=== PATIENT | male | born 1950 | race Caucasian/White ===

== ENCOUNTER → 2017-07-13 | Outpatient (CLI) | payer MEDICARE ==
[~2017-07-13] MED LIST: AMLO5TAB2 PO; ASPI-482 PO; BYSTOLIC10 MG PO; FURO40TA4 PO; GLIP10TA13 PO; IRBE300T3 PO; MAGN400T3 PO; OMEP40CA5 PO; POTA20TA4 PO; SITA100T PO
--- NOTE | 2017-07-13 14:54 | RAD ---
COMPLETE RENAL ULTRASOUND Indication: Chronic kidney disease Comparison: CT abdomen and pelvis dated 02/26/2016. Procedure: Transabdominal ultrasound images are obtained of the kidneys and bladder. Findings: The kidneys demonstrate normal morphology and echotexture. There is no hydronephrosis. The right kidney measures 13.1 x 6.7 x 5.3 cm. The left kidney measures 11.8 x 6.3 x 4.9 cm. The bladder appears normal. IMPRESSION: Unremarkable renal ultrasound.
== END | disposition home or self-care (01) ==
LOC: US 10:32
PROVIDERS: ATTEND Internal Medicine Nephrology
DX: N18.3 Chronic kidney disease, stage 3 (moderate) (principal)
CPT/HCPCS: 76770

== ENCOUNTER → 2021-02-04 | Outpatient (CLI) | payer MEDICARE ==
[~2021-02-04] MED LIST changes: +AMLO-186 PO; -AMLO5TAB2 PO; +IRBE300T23 PO; -IRBE300T3 PO; -MAGN400T3 PO; +MAGN400T5 PO; +OMEP40CA45 PO; -OMEP40CA5 PO
--- NOTE | 2021-02-04 14:01 | KCIC ---
Exam performed: 2 views of the chest. Indication: Reason: SOA, past smoker, GERD. / Spl. Instructions: / History: Date of Service: 02/04/2021 1:41 PM. Comparison : None available Findings: PA and lateral radiographs of the chest reveal a mildly enlarged cardiomediastinal contour. Pulmonary vascularity appears mildly congested. There are prominent interstitial markings in both perihilar re gions. The lungs are clear. No pleural fluid is seen. The visualized osseous structures are unremark able. Impression: Cardiomegaly with Central vascular congestion and mildly prominent interstitial markings in both izaiah hilar regions. Findings are perhaps related to low-grade CHF. Correlate clinically. Electronically signed by: Karen Mcleod MD (02/04/2021 1:59 PM) [id number]
== END ==
LOC: KCIC 13:37
PROVIDERS: ATTEND Internal Medicine Gastroenterology
DX: I51.7 Cardiomegaly (principal); K21.9 Gastro-esophageal reflux disease without esophagitis; Z87.891 Personal history of nicotine dependence
CPT/HCPCS: 71046

== ENCOUNTER 2021-07-05 23:25 | Inpatient (IN) | payer MEDICARE ==
[~2021-07-05] VITALS: Ht 182.9 cm; Wt 133.4 kg
[~2021-07-05 23:25] MED LIST changes: -OMEP40CA45 PO; +OMEP40CA7 PO; +POTA-121 PO; -POTA20TA4 PO
[2021-07-05] MEDS ORDERED: FUROSEMIDE 40 MG/4 ML VIAL. ONE (23:28)
--- NOTE | 2021-07-05 23:40 | PHYS DOC ---
General Adult HPI: HPI: Patient is a 70 year old male past medical history of CHF presents with a chief complaint of shortness of breath. Shortness of breath suddenly started prior to arrival. Family called 911 EMS found patient to be sitting up in a chair in the tripod position with oxygen saturations in the 60s. Patient states shortness breath started suddenly just prior to arrival. Patient states today he noticed increased swelling bilateral lower extremities so he took extra dose of his Lasix 40mg. Patient denies any associated chest discomfort. States he did receive his Covid vaccination yesterday and was having chills but denied any fevers Patient did state he had some cough with no sputum production. Patient arrived on CPAP with oxygen saturations in the 70s. Shortly after arrival patient was placed on BiPAP with improvement of oxygen saturation to 100%. On exam patient is tachypneic with wet sounds. Patient has pitting edema bilateral lower extremities. Review of Systems: Review of Systems: Review of systems: Constitutional symptoms- No fever, Positive chills. Eyes- No Discharge, No Visual Loss Respiratory symptoms- Positive shortness of breath, No wheezing, No Dyspnea on Exertion positive cough Cardiovascular Systems; No chest pain, No Palpitations, No syncope Gastrointestinal symptoms: NO abdominal pain, no nausea, no vomiting or diarrhea. Genitourinary symptoms: No dysuria. Musculoskeletal symptoms: No back pain No extremity pain. Positive lower extremity edema NEUROLOGICAL Symptoms: No headache, no generalized weakness; No focal Weakness Skin: No rash. Heart Score: C/O Chest Pain: N/A Risk Factors: Risk Factors: DM, Current or recent (<one month) smoker, HTN, HLP, family history of CAD, obesity. Risk Scores: Score 0 - 3: 2.5% MACE over next 6 weeks - Discharge Home Score 4 - 6: 20.3% MACE over next 6 weeks - Admit for Clinical Observation Score 7 - 10: 72.7% MACE over next 6 weeks - Early Invasive Strategies Current Medications: Current Medications Medications (Trade) Dose Ordered Sig/Kory Start Time Stop Time Status Last Admin Dose Admin Furosemide (Lasix) 40 mg STK-MED ONCE 07/05/21 23:28 07/05/21 23:28 DC Allergies: Allergies: Allergies Coded Allergies Type Severity Reaction Last Updated Verified Penicillins Allergy Intermediate 02/26/16 Yes Physical Exam: PE: General: alert, mild acute distress. Skin: warm, dry and intact, no erythema, no rash. HENT: bilateral external ears normal, oropharynx moist, nose normal. Head:: Normocephalic, atraumatic. Neck: Trachea midline. Eyes: EOMI, Normal conjunctiva, No drainage CARDIOVASCULAR: Regular rate and rhythm RESPIRATORY: Tachypnea, respiratory distress Back: Full range of motion. MUSCULOSKELETAL: Full range of motion of bilateral upper and lower extremities. Pitting edema bilateral lower extremities GASTROINTESTINAL: Abdomen soft without rebound or guarding. NEUROLOGICAL: Alert and noted to person, place and time. No neurological deficits observed Psychiatric: Cooperative. Normal judgment EKG: EKG: [] Performed at 2331 Rate 73 sinus rhythm with apparent intraventricular complexes No ST elevation No ST depression No acute TN Radiology/Procedures: Radiology/Procedures: [] Impression: COMPARISON: 02/04/2021. FINDINGS: A frontal view of the chest is obtained. There are airspace infiltrates in the right greater than left bases. There is no pneumothorax or pleural effusion. The heart is mildly enlarged. IMPRESSION: 1. Multifocal pneumonia worse in the right base. Electronically signed by: Jay Mason MD (07/06/2021 1:49 AM) [facility] Course & Med Decision Making: Course & Med Decision Making Pertinent Labs and Imaging studies reviewed. (See chart for details) [] Patient was evaluated for chief complaint. Work-up consisted of laboratory analysis radiologic imaging and EKG. Results reviewed and discussed with patient and daughter. Treatment included Lasix and BiPAP. Once placement was placed on BiPAP oxygen saturation improved 9697%. Chest x-ray radiologist read as multifocal infiltrate. Covid swab obtained. Cultures and lactic acid obtained. 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 Nita Disclaimer: Nita Disclaimer: This electronic medical record was generated, in whole or in part, using a voice recognition dictation system. Departure Departure Impression: Primary Impression: CHF (congestive heart failure) Additional Impressions: Acute respiratory distress Person under investigation for COVID-19 Disposition: ADMITTED INPATIENT Referrals: MARY MCDUFFIE MD (PCP) OMAYRA TAPIA DO Jul 05, 2021 23:40
[2021-07-06 00:41] LABS: BASE EXCESS ABG -5 mmol/L (-3-3); HCO3 ABG 21 mmol/L (21-28); PCO2 ABG 43 mmHg (35-46); PO2 ABG 86 mmHg (65-108); SAT O2 ABG 96 % (92-99)
[2021-07-06 00:44] LABS: FIO2 ABG 65 (BIPAP)
[2021-07-06] MEDS ORDERED: FUROSEMIDE 40 MG/4 ML VIAL. IVP ONE (00:45)
[2021-07-06 00:56] LABS: BASO # 0.1 x10^3/uL (0.0-0.2); BASO % 1 % (0-3); EOS # 0.3 x10^3/uL (0.0-0.7); EOS % 2 % (0-3); HEMATOCRIT 40.3 % (39.0-53.0); HEMOGLOBIN 13.3 g/dL (13.0-17.5); LYMPH # 1.6 x10^3/uL (1.0-4.8); LYMPH % 13 % (24-48); MEAN CORPUSCULAR HEMOGLOBIN 34 pg (25-35); MEAN CORPUSCULAR HGB CONC 33 g/dL (31-37); MEAN CORPUSCULAR VOLUME 101 fL (79-100); MONO # 0.7 x10^3/uL (0.0-1.1); MONO % 6 % (0-9); NEUT # 9.7 x10^3/uL (1.8-7.7); NEUT % 78 % (31-73); PLATELET COUNT 148 x10^3/uL (140-400); RED BLOOD COUNT 3.98 x10^6/uL (4.30-5.70); RED CELL DISTRIBUTION WIDTH 15.6 % (11.5-14.5); WHITE BLOOD COUNT 12.3 x10^3/uL (4.0-11.0)
[2021-07-06 01:07] LABS: CALCIUM 8.5 mg/dL (8.5-10.1); CREATININE 3.9 mg/dL (0.7-1.3); GFR 15.4; POTASSIUM 4.4 mmol/L (3.5-5.1)
[2021-07-06 01:12] LABS: ALBUMIN 3.6 g/dL (3.4-5.0); ALBUMIN/GLOBULIN RATIO 0.9 (1.0-1.7); TOTAL BILIRUBIN 0.5 mg/dL (0.2-1.0); TOTAL PROTEIN 7.4 g/dL (6.4-8.2)
--- NOTE | 2021-07-06 01:52 | RAD ---
EXAM: CHEST ONE VIEW. HISTORY: Shortness of breath. COMPARISON: 02/04/2021. FINDINGS: A frontal view of the chest is obtained. There are airspace infiltrates in the right greater than left bases. There is no pneumothorax or pleu ral effusion. The heart is mildly enlarged. IMPRESSION: 1. Multifocal pneumonia worse in the right base. Electronically signed by: Jay Mason MD (07/06/2021 1:49 AM) [facility]
[2021-07-06 03:17] VITALS: BP 166/70
--- NOTE | 2021-07-06 04:05 | NUR ---
Admit from ER to [facility] room 654 via gurney. RT at bedside to place patient on BiPap. A/O x 4. Talkative. Pleasant. Tolerating BiPap without difficulty. VSS. O2 Sat 100% with BiPap at 65% FiO2. Orientated to room and call light. Reviewed POC to include BiPap and to call for assist while out of bed. Verbalized understanding. Resting in bed. Call light at hand. Bed alarm on.
[2021-07-06 06:00] VITALS: BP 155/87
[2021-07-06] MEDS ORDERED: MULT-245 PO (08:21)
[2021-07-06] MEDS ORDERED: AMLO-187 PO (08:21)
[2021-07-06] MEDS ORDERED: GABA-585 PO (08:21)
[2021-07-06] MEDS ORDERED: SITA25TA PO (08:21)
[2021-07-06] MEDS ORDERED: ISOS30TA68 PO (08:21)
[2021-07-06] MEDS ORDERED: HYDR-2869 PO (08:21)
[2021-07-06] MEDS ORDERED: ALLO300T PO (08:21)
[2021-07-06] MEDS ORDERED: FURO20TA3 PO (08:21)
[2021-07-06] MEDS ORDERED: CARV25TA2 PO (08:21)
[2021-07-06] MEDS ORDERED: FURO40TA4 PO (08:21)
[2021-07-06 10:48] VITALS: BP 165/74
--- NOTE | 2021-07-06 11:03 | EKG ---
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
[2021-07-06] MEDS ORDERED: PIP/TAZO PER PHARMACY MC PRN (12:15)
[2021-07-06 12:36] LABS: BASE EXCESS ABG -5 mmol/L (-3-3); FIO2 ABG 6 LPM NC; HCO3 ABG 20 mmol/L (21-28); PCO2 ABG 36 mmHg (35-46); PO2 ABG 56 mmHg (65-108); SAT O2 ABG 88 % (92-99)
[2021-07-06] MEDS ORDERED: GABAPENTIN 100 MG CAPSULE. PO SCH (13:00)
[2021-07-06] MEDS ORDERED: DOXYCYCLINE HYCLATE 100 MG in IV DEXTROSE 5% 100ML 100 ML IV SCH (13:00)
[2021-07-06] MEDS: ALLOPURINOL 300 MG TABLET. PO SCH (13:09)
[2021-07-06] MEDS: LINAGLIPTIN 5 MG TABLET PO SCH (13:11)
[2021-07-06] MEDS: PANTOPRAZOLE 40 MG TABLET.DR. PO SCH (13:11)
[2021-07-06] MEDS: ASPIRIN ENTERIC COATED 81 MG TABLET.DR. PO SCH (13:11)
[2021-07-06] MEDS: FUROSEMIDE 40 MG TABLET. PO SCH ×3 (13:11→21:16)
--- NOTE | 2021-07-06 13:26 | HP ---
ADMIT DATE: 07/06/2021 CHIEF COMPLAINT: Shortness of breath. 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 Basically, he presents to the ER with shortness of breath. He normally goes to [facility] and really wanted to go there, but they were apparently on diversion. EMS brought him here. While in the ER, we have noticed that his chest x-ray is abnormal. He has pneumonia. He is also volume overloaded. He is edematous. He also has a creatinine of 3.9 with a GFR hovering around 20. I discussed the case with the ER physician. We are going to admit the patient and consult Cardiology, Nephrology and Pulmonary Medicine. PAST MEDICAL HISTORY: Chronic renal disease, he states that he has been talking about possibly doing dialysis on him for some time; edema, CHF, anemia, polypharmacy, hypertension, neuropathy, GERD, gout. ALLERGIES: PENICILLIN, STATINS, CLINDAMYCIN, LISINOPRIL AND NAPROXEN. FAMILY HISTORY: Diabetes. 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 MEDICATIONS: Reviewed. He is on 12; including hydralazine, Imdur, carvedilol, amlodipine, aspirin, gabapentin, Lasix, omeprazole, Januvia, vitamins and allopurinol. REVIEW OF SYSTEMS: GENERAL: No history of weight change, weakness or fevers. SKIN: No bruising, hair changes or rashes. EYES: No blurred, double or loss of vision. NOSE AND THROAT: No history of nosebleeds, hoarseness or sore throat. HEART: No history of palpitations, chest pain or shortness of breath on exertion. LUNGS: He complains of shortness of breath. GASTROINTESTINAL: Denies changes in appetite, nausea, vomiting, diarrhea or constipation. GENITOURINARY: No history of frequency, urgency, hesitancy or nocturia. NEUROLOGIC: Denies history of numbness, tingling, tremor or weakness. PSYCHIATRIC: No history of panic, anxiety or depression. ENDOCRINE: No history of heat or cold intolerance, polyuria or polydipsia. EXTREMITIES: He complains of edema. PHYSICAL EXAMINATION: VITALS: Within normal limits and are stable. GENERAL: He is up in the chair, very weak. He seems slightly depressed, but pleasant. HEENT: Normal cephalic atraumatic, external auditory canals are patent. EYES: Extraocular muscles are intact, pupils are equally round and reactive to light and accommodation. MUSCULOSKELETAL: Well developed, well nourished, good range of motion. ENDOCRINE: No thyromegaly was palpated. LYMPHATICS: No cervical chain or axillary nodes were noted. HEMATOPOIETIC: No bruising. NECK: Supple, no JVD, no thyromegaly was noted. LUNGS: He has bibasilar crackles. HEART: RRR, S1, S2 present. Peripheral pulses intact, no obvious murmurs were noted. ABDOMEN: Soft, nontender. Positive bowel sounds no organomegaly, normal bowel sounds. EXTREMITIES: He has 2-3+ edema. NEUROLOGIC: He is extremely weak and short of breath. PSYCHIATRIC: Normal affect, normal mood. Stable. SKIN: No ulcerations or rashes, good skin turgor, no jaundice. VASCULAR: Good capillary refill, neurovascular bundle appears to be intact. LABORATORY DATA: White count 12, hemoglobin 13, platelets 148. Creatinine is 3.9, BUN is 63. His BNP level was 4289. COVID testing is negative. Chest x-ray shows a right sided pneumonia. ASSESSMENT AND PLAN: Multifactorial respiratory failure with pneumonia, probable volume overload, end-stage renal disease, probable heart failure, leukocytosis and azotemia. The patient has been admitted. I would like to try to diurese him, but I am afraid it may worsen his creatinine, we will hold off until he is seen by Cardiology and Nephrology. I did order IV Zosyn for the pneumonia. I have consulted Pulmonary Medicine, Cardiology and Nephrology. I resume most of his home meds for now. Discussed the case with his nurse and his daughter. Cardiac monitoring. O2 per nasal cannula. PROGNOSIS: FDC, extremely guarded. I explained to him he should consider dialysis if Nephrology offers it. CC TIME: [address]: ISABELLE/sy TID: [id number]
[2021-07-06] MEDS: ISOSORBIDE MONONITRATE 20 MG TABLET PO SCH (14:28)
[2021-07-06 15:00] VITALS: BP 177/76
--- NOTE | 2021-07-06 15:07 | PDOC2 ---
CONSULT Date of Consult Date of Consult DATE: 07/06/21 TIME: 15:04 Reason for Consult Reason for Consult: Chronic renal failure, respiratory failure Referring Physician Referring Physician: Jose Angel Identification/Chief Complaint Chief Complaint Shortness of breath Source Source: Chart review, Patient History of Present Illness Reason for Visit: The patient is a pleasant 70-year-old male who normally goes to [facility]. He was brought to the ER here since they were apparently on diversion. He was last seen by us in February 2021 with similar complaints of increasing shortness of breath. He has been following with cardiology and the CHF clinic whereby his diuretic regimen has been modified. He is known to have CKD stage IV on the basis of diabetes hypertension exogenous obesity and follows with Dr. Jackson. His baseline GFR is approximately 17-20 depending on his fluid status. In the ER he was noted to have an abnormal chest x-ray suggestive of fluid overload versus pneumonia. He claims he has been coughing up yellow phlegm however denies any fevers chills per se. He is unable to tell me how much weight he has gained. He does admit to occasional salt indiscretion. He is known to have 3.5 g of protein in the past. He denies any worsening of his lower extremity edema. Previous echocardiograms have shown preserved LV function but positive diastolic dysfunction Past Medical History Past Medical History Chronic renal disease stage IV Diastolic CHF Chronic lower extremity edema, anemiain the setting of renal failure hypertension, History of neuropathy, GERD, gout. 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 He does not drink, smoke or take drugs. Recently Current Problem List Problem List Problems Medical Problems: (1) Acute respiratory distress Status: Acute (2) CHF (congestive heart failure) Status: Acute (3) Person under investigation for COVID-19 Status: Acute Current Medications Current Medications Current Medications Furosemide (Lasix) 40 mg STK-MED ONCE .ROUTE ; Start 07/05/21 at 23:28; Stop 07/05/21 at 23:28; Status DC Furosemide (Lasix) 40 mg 1X ONCE IVP Last administered on 07/05/21at 23:35; Start 07/06/21 at 00:45; Stop 07/06/21 at 00:51; Status DC Allopurinol (Zyloprim) 300 mg DAILY PO Last administered on 07/06/21at 13:09; Start 07/06/21 at 13:00 Amlodipine Besylate (Norvasc) 10 mg DAILY PO Last administered on 07/06/21at 13:11; Start 07/06/21 at 13:00 Aspirin (Ecotrin) 81 mg DAILY PO Last administered on 07/06/21at 13:11; Start 07/06/21 at 13:00 Furosemide (Lasix) 20 mg QODAY PO ; Start 07/07/21 at 09:00 Furosemide (Lasix) 40 mg QODAY PO Last administered on 07/06/21at 13:11; Start 07/06/21 at 13:00 Gabapentin (Neurontin) 100 mg DAILY PO ; Start 07/06/21 at 13:00; Stop 07/06/21 at 13:19; Status DC Hydralazine HCl (Apresoline) 50 mg TID PO Last administered on 07/06/21at 13:13; Start 07/06/21 at 14:00 Isosorbide Mononitrate (Ismo) 20 mg BID92 PO Last administered on 07/06/21at 14:28; Start 07/06/21 at 14:00 Carvedilol (Coreg) 25 mg BIDWMEALS PO ; Start 07/06/21 at 17:00 Multivitamins (Thera M Plus) 1 tab DAILY PO ; Start 07/07/21 at 09:00 Pantoprazole Sodium (Protonix) 40 mg DAILYAC PO Last administered on 07/06/21at 13:11; Start 07/06/21 at 13:00 Linagliptin (Tradjenta) 5 mg DAILY PO Last administered on 07/06/21at 13:11; Start 07/06/21 at 13:00 Piperacillin Sod/ Tazobactam Sod (Zosyn Per Pharmacy) 1 each PRN DAILY PRN MC SEE COMMENTS; Start 07/06/21 at 12:15; Status UNV Doxycycline Hyclate 100 mg/ Dextrose 100 ml @ 50 mls/hr Q12HR IV ; Start 07/06/21 at 13:00 Gabapentin (Neurontin) 100 mg HS PO ; Start 07/06/21 at 21:00 Furosemide (Lasix) 80 mg Q6HRS PO ; Start 07/06/21 at 18:00; Stop 07/07/21 at 12:01 Active Scripts Active Reported Multi Vitamin Daily (Multivitamin) 1 Each Tablet 1 Tab PO DAILY 30 Days Gabapentin (Gabapentin) 100 Mg Capsule 100 Mg PO DAILY Carvedilol 25 Mg Tablet 25 Mg PO BIDWMEALS Amlodipine Besylate 10 Mg Tablet 10 Mg PO DAILY Allopurinol 300 Mg Tablet 1 Tab PO DAILY Januvia (Sitagliptin Phosphate) 25 Mg Tablet 25 Mg PO DAILY Furosemide 40 Mg Tablet 1 Tab PO QODAY Furosemide 20 Mg Tablet 1 Tab PO QODAY Isosorbide Mononitrate Er (Isosorbide Mononitrate) 30 Mg Tab.er.24h 20 Mg PO BID Hydralazine Hcl 50 Mg Tablet 1 Tab PO TID Aspir 81 (Aspirin) 81 Mg Tablet.dr 1 Tab PO DAILY Omeprazole 40 Mg Capsule.dr 40 Mg PO DAILY Allergies Allergies: Coded Allergies: Penicillins (Verified Allergy, Intermediate, 02/26/16) Lllplka-Ipi-Hqs Reductase Inhibitor (Verified Allergy, Intermediate, 07/05/21) lisinopril (Verified Allergy, Intermediate, COUGH, 07/05/21) naproxen (Verified Allergy, Intermediate, 07/05/21) clindamycin (Verified Allergy, Mild, Diarrhea, 07/05/21) ROS Review of System 14 point review of systems: Positives as previously reviewed under HPI otherwise negative Physical Exam Physical Exam General Appearance: Awake Alert Oriented x 3 In min resp Distress especially with ambulation or movement, exogenous obesity Eyes: VIsion Unchanged Conjunctiva Normal EN: No EN Drainage Mucous Memb. moist Neck: no JVD no JVP Supple no Thyromegaly, short thick neck CVS: S1 S2 possible systolic murmur No Gallop No Rub +2-3 Edema Resp: Bibasilar Rales no obvious rhonchi no obvious Acc. Muscle use GI: BAS +ve NO Bruit Non Tender Non Distended : no CVA tenderness; no Suprapubic Tenderness SKIN: no Rashes Breast Exam deferred Mu.Sk: Adequate ROM no Muscle Atrophy Heme: Unable to palpate Obvious LAD no palp Splenomegaly NEURO: Good Strength and Tone Cranial Nerves II - XII grossly intact Psych: not Depressed no Active hallucination Vital Signs Vital Signs Date Time Temp Pulse Resp B/P (MAP) Pulse Ox O2 Delivery O2 Flow Rate FiO2 07/06/21 15:00 99.4 69 20 177/76 (109) 94 Nasal Cannula 11.0 99.4 Assessment & Plan Chronic kidney disease stage IV with baseline GFR anywhere from 17-20 depending on fluid status. Current FLuid and E-lyte status does not necessitate emergent need for Dialysis. Will re-evaluate for Dialysis in am. He knows that has been aware of his proximity to needing dialysis. Fluid overload: Diuresis as ordered. There is some suspicion for pneumonia also. My review of chest x-ray appears to show bilateral pleural effusions. May benefit from reecho Known history of proteinuria of 3.5 g in the past. May need to be quantitation of the same however may not change overall prognosis Lower extremity edema: Diuresis is required HTN: Current BP meds reviewed. See orders for changes. Await cardiology evaluation. Discussed Plan of Care and prognosis etc. at length with family(daughter at bedside) Labs Labs Laboratory Tests Test 07/05/21 11:45 07/05/21 23:28 07/06/21 02:35 07/06/21 02:48 O2 Saturation 96 % (92-99) Arterial Blood pH 7.31 (7.35-7.45) Arterial Blood pCO2 at Patient Temp 43 mmHg (35-46) Arterial Blood pO2 at Patient Temp 86 mmHg (65-108) Arterial Blood HCO3 21 mmol/L (21-28) Arterial Blood Base Excess -5 mmol/L (-3-3) FiO2 65 (bipap) White Blood Count 12.3 x10^3/uL (4.0-11.0) Red Blood Count 3.98 x10^6/uL (4.30-5.70) Hemoglobin 13.3 g/dL (13.0-17.5) Hematocrit 40.3 % (39.0-53.0) Mean Corpuscular Volume 101 fL (79-100) Mean Corpuscular Hemoglobin 34 pg (25-35) Mean Corpuscular Hemoglobin Concent 33 g/dL (31-37) Red Cell Distribution Width 15.6 % (11.5-14.5) Platelet Count 148 x10^3/uL (140-400) Neutrophils (%) (Auto) 78 % (31-73) Lymphocytes (%) (Auto) 13 % (24-48) Monocytes (%) (Auto) 6 % (0-9) Eosinophils (%) (Auto) 2 % (0-3) Basophils (%) (Auto) 1 % (0-3) Neutrophils # (Auto) 9.7 x10^3/uL (1.8-7.7) Lymphocytes # (Auto) 1.6 x10^3/uL (1.0-4.8) Monocytes # (Auto) 0.7 x10^3/uL (0.0-1.1) Eosinophils # (Auto) 0.3 x10^3/uL (0.0-0.7) Basophils # (Auto) 0.1 x10^3/uL (0.0-0.2) Sodium Level 140 mmol/L (136-145) Potassium Level 4.4 mmol/L (3.5-5.1) Chloride Level 104 mmol/L (98-107) Carbon Dioxide Level 25 mmol/L (21-32) Anion Gap 11 (6-14) Blood Urea Nitrogen 63 mg/dL (8-26) Creatinine 3.9 mg/dL (0.7-1.3) Estimated GFR (Cockcroft-Gault) 15.4 BUN/Creatinine Ratio 16 (6-20) Glucose Level 139 mg/dL (70-99) Calcium Level 8.5 mg/dL (8.5-10.1) Total Bilirubin 0.5 mg/dL (0.2-1.0) Aspartate Amino Transf (AST/SGOT) 33 U/L (15-37) Alanine Aminotransferase (ALT/SGPT) 36 U/L (16-63) Alkaline Phosphatase 112 U/L (46-116) Troponin I Quantitative 0.018 ng/mL (0.000-0.055) EN-Lqa-U-Type Natriuretic Peptide 4289 pg/mL (0-124) Total Protein 7.4 g/dL (6.4-8.2) Albumin 3.6 g/dL (3.4-5.0) Albumin/Globulin Ratio 0.9 (1.0-1.7) SARS-CoV-2 RNA (FELICITY) Negative (Negative) SARS-CoV-2 Antigen (Rapid) Negative (NEGATIVE) Lactic Acid Level 0.5 mmol/L (0.4-2.0) Test 07/06/21 07:26 07/06/21 07:40 07/06/21 09:30 07/06/21 12:15 Glucose (Fingerstick) 111 mg/dL (70-99) 160 mg/dL (70-99) Troponin I Quantitative 0.048 ng/mL (0.000-0.055) O2 Saturation 88 % (92-99) Arterial Blood pH 7.36 (7.35-7.45) Arterial Blood pCO2 at Patient Temp 36 mmHg (35-46) Arterial Blood pO2 at Patient Temp 56 mmHg (65-108) Arterial Blood HCO3 20 mmol/L (21-28) Arterial Blood Base Excess -5 mmol/L (-3-3) FiO2 6 lpm nc Test 07/06/21 13:25 Troponin I Quantitative 0.039 ng/mL (0.000-0.055) Laboratory Tests Test 07/05/21 23:28 07/06/21 02:35 07/06/21 02:48 07/06/21 07:26 White Blood Count 12.3 x10^3/uL (4.0-11.0) Red Blood Count 3.98 x10^6/uL (4.30-5.70) Hemoglobin 13.3 g/dL (13.0-17.5) Hematocrit 40.3 % (39.0-53.0) Mean Corpuscular Volume 101 fL (79-100) Mean Corpuscular Hemoglobin 34 pg (25-35) Mean Corpuscular Hemoglobin Concent 33 g/dL (31-37) Red Cell Distribution Width 15.6 % (11.5-14.5) Platelet Count 148 x10^3/uL (140-400) Neutrophils (%) (Auto) 78 % (31-73) Lymphocytes (%) (Auto) 13 % (24-48) Monocytes (%) (Auto) 6 % (0-9) Eosinophils (%) (Auto) 2 % (0-3) Basophils (%) (Auto) 1 % (0-3) Neutrophils # (Auto) 9.7 x10^3/uL (1.8-7.7) Lymphocytes # (Auto) 1.6 x10^3/uL (1.0-4.8) Monocytes # (Auto) 0.7 x10^3/uL (0.0-1.1) Eosinophils # (Auto) 0.3 x10^3/uL (0.0-0.7) Basophils # (Auto) 0.1 x10^3/uL (0.0-0.2) Sodium Level 140 mmol/L (136-145) Potassium Level 4.4 mmol/L (3.5-5.1) Chloride Level 104 mmol/L (98-107) Carbon Dioxide Level 25 mmol/L (21-32) Anion Gap 11 (6-14) Blood Urea Nitrogen 63 mg/dL (8-26) Creatinine 3.9 mg/dL (0.7-1.3) Estimated GFR (Cockcroft-Gault) 15.4 BUN/Creatinine Ratio 16 (6-20) Glucose Level 139 mg/dL (70-99) Calcium Level 8.5 mg/dL (8.5-10.1) Total Bilirubin 0.5 mg/dL (0.2-1.0) Aspartate Amino Transf (AST/SGOT) 33 U/L (15-37) Alanine Aminotransferase (ALT/SGPT) 36 U/L (16-63) Alkaline Phosphatase 112 U/L (46-116) Troponin I Quantitative 0.018 ng/mL (0.000-0.055) GN-Xpb-V-Type Natriuretic Peptide 4289 pg/mL (0-124) Total Protein 7.4 g/dL (6.4-8.2) Albumin 3.6 g/dL (3.4-5.0) Albumin/Globulin Ratio 0.9 (1.0-1.7) SARS-CoV-2 RNA (FELICITY) Negative (Negative) SARS-CoV-2 Antigen (Rapid) Negative (NEGATIVE) Lactic Acid Level 0.5 mmol/L (0.4-2.0) Glucose (Fingerstick) 111 mg/dL (70-99) Test 07/06/21 07:40 07/06/21 09:30 07/06/21 12:15 07/06/21 13:25 Troponin I Quantitative 0.048 ng/mL (0.000-0.055) 0.039 ng/mL (0.000-0.055) O2 Saturation 88 % (92-99) Arterial Blood pH 7.36 (7.35-7.45) Arterial Blood pCO2 at Patient Temp 36 mmHg (35-46) Arterial Blood pO2 at Patient Temp 56 mmHg (65-108) Arterial Blood HCO3 20 mmol/L (21-28) Arterial Blood Base Excess -5 mmol/L (-3-3) FiO2 6 lpm nc Glucose (Fingerstick) 160 mg/dL (70-99) Review All relevant outside records, renal labs, imaging studies, telemetry/EKG's were reviewed. Images Images There are airspace infiltrates in the right greater than left bases. There is no pneumothorax or pleural effusion. The heart is mildly enlarged. IMPRESSION: 1. Multifocal pneumonia worse in the right base. ZEKE PAREDES MD Jul 06, 2021 15:07
--- NOTE | 2021-07-06 15:48 | PDOC2 ---
CONSULT Date of Consult Date of Consult DATE: 07/06/21 TIME: 15:41 Reason for Consult Reason for Consult: Heart failure Referring Physician Referring Physician: Dr. Walter Identification/Chief Complaint Chief Complaint Shortness of breath Source Source: Chart review, Patient History of Present Illness Reason for Visit: The patient is a 70-year-old male with a history of heart failure and progressive kidney disease who reported 2 days of gradually increasing shortness of breath and lower extremity edema. He is apparently followed by the heart failure clinic at [facility] but [facility] reportedly was on divert and the patient was admitted through our emergency room. He denies any chest pain but does report that his shortness of breath came on over approximately a day and a half. Initial blood testing was significant for potassium 4.4 creatinine of 3.9 troponin of 0.039 and BNP of 4289. The patient was initially treated with Lasix which did improve his symptoms. He is also being evaluated by the renal service due to his progressive renal disease. As noted above he denies any chest discomfort. Reportedly past echoes have shown preserved LV function. His admission chest x-ray showed bilateral basilar infiltrates right greater than left with mild cardiomegaly. Past Medical History Cardiovascular: CHF, HTN Renal/: Acute renal failure Family History Family History: Hypertension Social History No ALCOHOL: none Current Problem List Problem List Problems Medical Problems: (1) Acute respiratory distress Status: Acute (2) CHF (congestive heart failure) Status: Acute (3) Person under investigation for COVID-19 Status: Acute Current Medications Current Medications Current Medications Furosemide (Lasix) 40 mg STK-MED ONCE .ROUTE ; Start 07/05/21 at 23:28; Stop 07/05/21 at 23:28; Status DC Furosemide (Lasix) 40 mg 1X ONCE IVP Last administered on 07/05/21at 23:35; Start 07/06/21 at 00:45; Stop 07/06/21 at 00:51; Status DC Allopurinol (Zyloprim) 300 mg DAILY PO Last administered on 07/06/21at 13:09; Start 07/06/21 at 13:00 Amlodipine Besylate (Norvasc) 10 mg DAILY PO Last administered on 07/06/21at 13:11; Start 07/06/21 at 13:00 Aspirin (Ecotrin) 81 mg DAILY PO Last administered on 07/06/21at 13:11; Start 07/06/21 at 13:00 Furosemide (Lasix) 20 mg QODAY PO ; Start 07/07/21 at 09:00 Furosemide (Lasix) 40 mg QODAY PO Last administered on 07/06/21at 13:11; Start 07/06/21 at 13:00 Gabapentin (Neurontin) 100 mg DAILY PO ; Start 07/06/21 at 13:00; Stop 07/06/21 at 13:19; Status DC Hydralazine HCl (Apresoline) 50 mg TID PO Last administered on 07/06/21at 13:13; Start 07/06/21 at 14:00 Isosorbide Mononitrate (Ismo) 20 mg BID92 PO Last administered on 07/06/21at 14:28; Start 07/06/21 at 14:00 Carvedilol (Coreg) 25 mg BIDWMEALS PO ; Start 07/06/21 at 17:00 Multivitamins (Thera M Plus) 1 tab DAILY PO ; Start 07/07/21 at 09:00 Pantoprazole Sodium (Protonix) 40 mg DAILYAC PO Last administered on 07/06/21at 13:11; Start 07/06/21 at 13:00 Linagliptin (Tradjenta) 5 mg DAILY PO Last administered on 07/06/21at 13:11; Start 07/06/21 at 13:00 Piperacillin Sod/ Tazobactam Sod (Zosyn Per Pharmacy) 1 each PRN DAILY PRN MC SEE COMMENTS; Start 07/06/21 at 12:15; Status UNV Doxycycline Hyclate 100 mg/ Dextrose 100 ml @ 50 mls/hr Q12HR IV ; Start 07/06/21 at 13:00 Gabapentin (Neurontin) 100 mg HS PO ; Start 07/06/21 at 21:00 Furosemide (Lasix) 80 mg Q6HRS PO ; Start 07/06/21 at 18:00; Stop 07/07/21 at 12:01 Active Scripts Active Reported Multi Vitamin Daily (Multivitamin) 1 Each Tablet 1 Tab PO DAILY 30 Days Gabapentin (Gabapentin) 100 Mg Capsule 100 Mg PO DAILY Carvedilol 25 Mg Tablet 25 Mg PO BIDWMEALS Amlodipine Besylate 10 Mg Tablet 10 Mg PO DAILY Allopurinol 300 Mg Tablet 1 Tab PO DAILY Januvia (Sitagliptin Phosphate) 25 Mg Tablet 25 Mg PO DAILY Furosemide 40 Mg Tablet 1 Tab PO QODAY Furosemide 20 Mg Tablet 1 Tab PO QODAY Isosorbide Mononitrate Er (Isosorbide Mononitrate) 30 Mg Tab.er.24h 20 Mg PO BID Hydralazine Hcl 50 Mg Tablet 1 Tab PO TID Aspir 81 (Aspirin) 81 Mg Tablet. 1 Tab PO DAILY Omeprazole 40 Mg Capsule.dr 40 Mg PO DAILY Allergies Allergies: Coded Allergies: Penicillins (Verified Allergy, Intermediate, 02/26/16) Syfawkq-Soh-Sub Reductase Inhibitor (Verified Allergy, Intermediate, 07/05/21) lisinopril (Verified Allergy, Intermediate, COUGH, 07/05/21) naproxen (Verified Allergy, Intermediate, 07/05/21) clindamycin (Verified Allergy, Mild, Diarrhea, 07/05/21) ROS General: YES: Fatigue Respiratory: YES: Shortness of breath, SOB with excertion Physical Exam General: Other (Mild to moderate distress) Lungs: Other (Decreased breath sounds) Heart: Regular rate Abdomen: Normal bowel sounds Vitals VITALS Vital Signs Date Time Temp Pulse Resp B/P (MAP) Pulse Ox O2 Delivery O2 Flow Rate FiO2 07/06/21 15:26 88 High Flow Nasal Cannula 10.0 07/06/21 15:00 99.4 69 20 177/76 (109) 99.4 Labs Labs Laboratory Tests Test 07/05/21 11:45 07/05/21 23:28 07/06/21 02:35 07/06/21 02:48 O2 Saturation 96 % (92-99) Arterial Blood pH 7.31 (7.35-7.45) Arterial Blood pCO2 at Patient Temp 43 mmHg (35-46) Arterial Blood pO2 at Patient Temp 86 mmHg (65-108) Arterial Blood HCO3 21 mmol/L (21-28) Arterial Blood Base Excess -5 mmol/L (-3-3) FiO2 65 (bipap) White Blood Count 12.3 x10^3/uL (4.0-11.0) Red Blood Count 3.98 x10^6/uL (4.30-5.70) Hemoglobin 13.3 g/dL (13.0-17.5) Hematocrit 40.3 % (39.0-53.0) Mean Corpuscular Volume 101 fL (79-100) Mean Corpuscular Hemoglobin 34 pg (25-35) Mean Corpuscular Hemoglobin Concent 33 g/dL (31-37) Red Cell Distribution Width 15.6 % (11.5-14.5) Platelet Count 148 x10^3/uL (140-400) Neutrophils (%) (Auto) 78 % (31-73) Lymphocytes (%) (Auto) 13 % (24-48) Monocytes (%) (Auto) 6 % (0-9) Eosinophils (%) (Auto) 2 % (0-3) Basophils (%) (Auto) 1 % (0-3) Neutrophils # (Auto) 9.7 x10^3/uL (1.8-7.7) Lymphocytes # (Auto) 1.6 x10^3/uL (1.0-4.8) Monocytes # (Auto) 0.7 x10^3/uL (0.0-1.1) Eosinophils # (Auto) 0.3 x10^3/uL (0.0-0.7) Basophils # (Auto) 0.1 x10^3/uL (0.0-0.2) Sodium Level 140 mmol/L (136-145) Potassium Level 4.4 mmol/L (3.5-5.1) Chloride Level 104 mmol/L (98-107) Carbon Dioxide Level 25 mmol/L (21-32) Anion Gap 11 (6-14) Blood Urea Nitrogen 63 mg/dL (8-26) Creatinine 3.9 mg/dL (0.7-1.3) Estimated GFR (Cockcroft-Gault) 15.4 BUN/Creatinine Ratio 16 (6-20) Glucose Level 139 mg/dL (70-99) Calcium Level 8.5 mg/dL (8.5-10.1) Total Bilirubin 0.5 mg/dL (0.2-1.0) Aspartate Amino Transf (AST/SGOT) 33 U/L (15-37) Alanine Aminotransferase (ALT/SGPT) 36 U/L (16-63) Alkaline Phosphatase 112 U/L (46-116) Troponin I Quantitative 0.018 ng/mL (0.000-0.055) KE-Dgq-U-Type Natriuretic Peptide 4289 pg/mL (0-124) Total Protein 7.4 g/dL (6.4-8.2) Albumin 3.6 g/dL (3.4-5.0) Albumin/Globulin Ratio 0.9 (1.0-1.7) SARS-CoV-2 RNA (FELICITY) Negative (Negative) SARS-CoV-2 Antigen (Rapid) Negative (NEGATIVE) Lactic Acid Level 0.5 mmol/L (0.4-2.0) Test 07/06/21 07:26 07/06/21 07:40 07/06/21 09:30 07/06/21 12:15 Glucose (Fingerstick) 111 mg/dL (70-99) 160 mg/dL (70-99) Troponin I Quantitative 0.048 ng/mL (0.000-0.055) O2 Saturation 88 % (92-99) Arterial Blood pH 7.36 (7.35-7.45) Arterial Blood pCO2 at Patient Temp 36 mmHg (35-46) Arterial Blood pO2 at Patient Temp 56 mmHg (65-108) Arterial Blood HCO3 20 mmol/L (21-28) Arterial Blood Base Excess -5 mmol/L (-3-3) FiO2 6 lpm nc Test 07/06/21 13:25 Troponin I Quantitative 0.039 ng/mL (0.000-0.055) Laboratory Tests Test 07/05/21 23:28 07/06/21 02:35 07/06/21 02:48 07/06/21 07:26 White Blood Count 12.3 x10^3/uL (4.0-11.0) Red Blood Count 3.98 x10^6/uL (4.30-5.70) Hemoglobin 13.3 g/dL (13.0-17.5) Hematocrit 40.3 % (39.0-53.0) Mean Corpuscular Volume 101 fL (79-100) Mean Corpuscular Hemoglobin 34 pg (25-35) Mean Corpuscular Hemoglobin Concent 33 g/dL (31-37) Red Cell Distribution Width 15.6 % (11.5-14.5) Platelet Count 148 x10^3/uL (140-400) Neutrophils (%) (Auto) 78 % (31-73) Lymphocytes (%) (Auto) 13 % (24-48) Monocytes (%) (Auto) 6 % (0-9) Eosinophils (%) (Auto) 2 % (0-3) Basophils (%) (Auto) 1 % (0-3) Neutrophils # (Auto) 9.7 x10^3/uL (1.8-7.7) Lymphocytes # (Auto) 1.6 x10^3/uL (1.0-4.8) Monocytes # (Auto) 0.7 x10^3/uL (0.0-1.1) Eosinophils # (Auto) 0.3 x10^3/uL (0.0-0.7) Basophils # (Auto) 0.1 x10^3/uL (0.0-0.2) Sodium Level 140 mmol/L (136-145) Potassium Level 4.4 mmol/L (3.5-5.1) Chloride Level 104 mmol/L (98-107) Carbon Dioxide Level 25 mmol/L (21-32) Anion Gap 11 (6-14) Blood Urea Nitrogen 63 mg/dL (8-26) Creatinine 3.9 mg/dL (0.7-1.3) Estimated GFR (Cockcroft-Gault) 15.4 BUN/Creatinine Ratio 16 (6-20) Glucose Level 139 mg/dL (70-99) Calcium Level 8.5 mg/dL (8.5-10.1) Total Bilirubin 0.5 mg/dL (0.2-1.0) Aspartate Amino Transf (AST/SGOT) 33 U/L (15-37) Alanine Aminotransferase (ALT/SGPT) 36 U/L (16-63) Alkaline Phosphatase 112 U/L (46-116) Troponin I Quantitative 0.018 ng/mL (0.000-0.055) TQ-Gzl-X-Type Natriuretic Peptide 4289 pg/mL (0-124) Total Protein 7.4 g/dL (6.4-8.2) Albumin 3.6 g/dL (3.4-5.0) Albumin/Globulin Ratio 0.9 (1.0-1.7) SARS-CoV-2 RNA (FELICITY) Negative (Negative) SARS-CoV-2 Antigen (Rapid) Negative (NEGATIVE) Lactic Acid Level 0.5 mmol/L (0.4-2.0) Glucose (Fingerstick) 111 mg/dL (70-99) Test 07/06/21 07:40 07/06/21 09:30 07/06/21 12:15 07/06/21 13:25 Troponin I Quantitative 0.048 ng/mL (0.000-0.055) 0.039 ng/mL (0.000-0.055) O2 Saturation 88 % (92-99) Arterial Blood pH 7.36 (7.35-7.45) Arterial Blood pCO2 at Patient Temp 36 mmHg (35-46) Arterial Blood pO2 at Patient Temp 56 mmHg (65-108) Arterial Blood HCO3 20 mmol/L (21-28) Arterial Blood Base Excess -5 mmol/L (-3-3) FiO2 6 lpm nc Glucose (Fingerstick) 160 mg/dL (70-99) Images Images Chest x-ray as above. Assessment/Plan Assessment/Plan 1. Acute respiratory failure. 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 He reports feeling mildly improved after Lasix. BNP is elevated at 4289 but the patient denies any chest pain. EKG is of poor quality and will be repeated. The patient is being seen and evaluated by the renal service. At this time we will continue on present treatments. We will check an echocardiogram to evaluate LV function and possible diastolic dysfunction. We will attempt to obtain records from [place]. 2. Progressive renal disease. Renal evaluation is underway. 3. Hypertension. Continuing baseline medications and monitoring. 4. Diabetes mellitus. Continue present treatments and monitor as above. DAVID LOCO MD Jul 06, 2021 15:48
[2021-07-06] MEDS: DOXYCYCLINE HYCLATE 100 MG TABLET PO SCH (17:12)
[2021-07-06] MEDS: CARVEDILOL 12.5 MG TABLET. PO SCH (17:13)
[2021-07-06 19:40] VITALS: BP 165/75
[2021-07-06] MEDS: GABAPENTIN 100 MG CAPSULE. PO SCH (21:15)
[2021-07-06 22:30] VITALS: BP 189/76
[2021-07-07 02:46] VITALS: BP 171/84
--- NOTE | 2021-07-07 03:23 | EKG ---
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1950 Requested By: OMAYRA TAPIA Order Number: [id number] Reading MD: Measurements Intervals [place] Rate: 73 P: 233 WY: 226 QRS: -4 QRSD: 122 T: 62 QT: 410 QTc: 456 Interpretive Statements SINUS RHYTHM COMPLEX(ES) WITH ABERRANT INTRAVENTRICULAR CONDUCTION PROLONGED WY INTERVAL LEFT ATRIAL ABNORMALITY LEFTWARD AXIS ST & T ABNORMALITY, CONSIDER HIGH LATERAL ISCHEMIA OR LEFT VENTRICULAR STRAIN ABNORMAL ECG RI6.02 Compared to ECG 07/05/2021 23:28:38 First degree AV block now present Atrial abnormality now present Left-axis deviation now present Possible ischemia now present Prolonged QT interval no longer present T-wave abnormality still present
[2021-07-07] MEDS: ACETAMINOPHEN 325 MG TABLET. PO PRN ×2 (03:31→16:12)
[2021-07-07 05:13] LABS: CALCIUM 8.1 mg/dL (8.5-10.1); CREATININE 3.8 mg/dL (0.7-1.3); GFR 15.8; MAGNESIUM 2.1 mg/dL (1.8-2.4)
[2021-07-07] MEDS: PANTOPRAZOLE 40 MG TABLET.DR. PO SCH (06:21)
[2021-07-07] MEDS: FUROSEMIDE 40 MG TABLET. PO SCH ×2 (06:22→12:06)
[2021-07-07 07:50] VITALS: BP 180/78
[2021-07-07] MEDS ORDERED: FUROSEMIDE 20 MG TABLET PO SCH (09:00)
[2021-07-07] MEDS: DOXYCYCLINE HYCLATE 100 MG TABLET PO SCH ×2 (09:15→22:29)
[2021-07-07] MEDS: ALLOPURINOL 300 MG TABLET. PO SCH (09:15)
[2021-07-07] MEDS: LINAGLIPTIN 5 MG TABLET PO SCH (09:15)
[2021-07-07] MEDS: ASPIRIN ENTERIC COATED 81 MG TABLET.DR. PO SCH (09:16)
[2021-07-07] MEDS: ISOSORBIDE MONONITRATE 20 MG TABLET PO SCH ×2 (09:16→13:54)
[2021-07-07] MEDS: MULTIVITAMIN with MINERAL TABLET. PO SCH (09:17)
[2021-07-07] MEDS: CARVEDILOL 12.5 MG TABLET. PO SCH ×2 (09:18→16:57)
--- NOTE | 2021-07-07 10:15 | PDOC ---
DATE OF SERVICE: DOS: DATE: 07/07/21 TIME: 10:12 SUBJECTIVE ROS Follow-up for chronic kidney disease stage IV Patient claims he is slightly short of breath felt better with a nonrebreather mask. Is currently on 10 L nasal cannula oxygen. Still hesitant to commit to dialysis. CVS: ? Orthopnea, NO CP RESP: + SOB, + SOUZA GI: NO Nausea, NO Vomiting : NO Dysuria, NO Urgency OBJECTIVE Vital Signs Vital Signs Date Time Temp Pulse Resp B/P (MAP) Pulse Ox O2 Delivery O2 Flow Rate FiO2 07/07/21 09:18 86 188/86 07/07/21 08:49 96 High Flow Nasal Cannula 10.0 07/07/21 02:46 100.1 18 100.1 I & 0 Intake and Output 07/07/21 07:00 Intake Total 1280 ml Output Total 700 ml Balance 580 ml Intake Oral 1280 ml Output Urine Total 700 ml PHYSICAL EXAM Physical Exam General Appearance: Awake Alert Oriented x 3 In min resp Distress especially with ambulation or movement, exogenous obesity Eyes: VIsion Unchanged Conjunctiva Normal EN: No EN Drainage Mucous Memb. moist Neck: no JVD no JVP Supple no Thyromegaly, short thick neck CVS: S1 S2 possible systolic murmur No Gallop No Rub +2-3 Edema Resp: Bibasilar Rales no obvious rhonchi no obvious Acc. Muscle use GI: BAS +ve NO Bruit Non Tender Non Distended : no CVA tenderness; no Suprapubic Tenderness SKIN: no Rashes Breast Exam deferred Mu.Sk: Adequate ROM no Muscle Atrophy Heme: Unable to palpate Obvious LAD no palp Splenomegaly NEURO: Good Strength and Tone Cranial Nerves II - XII grossly intact Psych: not Depressed no Active hallucination Assessment & Plan Chronic kidney disease stage IV with baseline GFR anywhere from 17-20 depending on fluid status. Current FLuid and E-lyte status does not necessitate emergent need for Dialysis. Patient remains hesitant to commit to the same. Will re- evaluate for Dialysis in am. He knows that has been aware of his proximity to needing dialysis. Suspect respiratory dysfunction associated with pneumonitis Shortness of breath, hypoxemia: Possibly associated with pneumonitis as previously discussed. Has received Lasix but no brisk diuresis Low-grade fevers noted suggestive of possible pneumonitis Fluid overload: Diuresis as ordered to minimize fluid component of the same. There is some suspicion for pneumonia also. Defer reecho to cardiology Known history of proteinuria of 3.5 g in the past. May need to be quantitation of the same however may not change overall prognosis in light of proximity to ESRD status Lower extremity edema: Slightly better with diuresis as ordered HTN: Current BP meds reviewed. See orders for changes. Defer to cardiology to optimize from their standpoint Discussed Plan of Care and prognosis etc. at length with family(son at bedside) COMMENT/RELEVANT DATA Meds Current Medications Medications (Trade) Dose Ordered Sig/Kory Start Time Stop Time Status Last Admin Dose Admin Acetaminophen (Tylenol) 650 mg PRN Q6HRS PRN 07/07/21 03:00 07/07/21 03:31 650 MG Albuterol/ Ipratropium (Duoneb) 3 ml RTQID 07/07/21 12:00 Allopurinol (Zyloprim) 300 mg DAILY 07/06/21 13:00 07/07/21 09:15 300 MG Amlodipine Besylate (Norvasc) 10 mg DAILY 07/06/21 13:00 07/07/21 09:16 10 MG Aspirin (Ecotrin) 81 mg DAILY 07/06/21 13:00 07/07/21 09:16 81 MG Carvedilol (Coreg) 25 mg BIDWMEALS 07/06/21 17:00 07/07/21 09:18 25 MG Doxycycline Hyclate (Vibra-Tab) 100 mg BID 07/06/21 18:00 07/07/21 09:15 100 MG Doxycycline Hyclate 100 mg/ Dextrose 100 ml @ 50 mls/hr Q12HR 07/06/21 13:00 07/06/21 16:34 DC Enoxaparin Sodium (Lovenox 30mg Syringe) 30 mg Q24H 07/07/21 10:00 Furosemide (Lasix) 80 mg Q6HRS 07/06/21 18:00 07/07/21 12:01 07/07/21 06:22 80 MG Gabapentin (Neurontin) 100 mg HS 07/06/21 21:00 07/06/21 21:15 100 MG Hydralazine HCl (Apresoline) 50 mg TID 07/06/21 14:00 07/07/21 09:17 50 MG Isosorbide Mononitrate (Ismo) 20 mg BID92 07/06/21 14:00 07/07/21 09:16 20 MG Linagliptin (Tradjenta) 5 mg DAILY 07/06/21 13:00 07/07/21 09:15 5 MG Multivitamins (Thera M Plus) 1 tab DAILY 07/07/21 09:00 07/07/21 09:17 1 TAB Pantoprazole Sodium (Protonix) 40 mg DAILYAC 07/08/21 07:30 UNV Piperacillin Sod/ Tazobactam Sod (Zosyn Per Pharmacy) 1 each PRN DAILY PRN 07/06/21 12:15 UNV Lab Laboratory Tests Test 07/06/21 12:15 07/06/21 13:25 07/06/21 21:39 07/07/21 03:50 Glucose (Fingerstick) 160 mg/dL (70-99) 171 mg/dL (70-99) Troponin I Quantitative 0.039 ng/mL (0.000-0.055) Sodium Level 141 mmol/L (136-145) Potassium Level 4.0 mmol/L (3.5-5.1) Chloride Level 106 mmol/L (98-107) Carbon Dioxide Level 26 mmol/L (21-32) Anion Gap 9 (6-14) Blood Urea Nitrogen 60 mg/dL (8-26) Creatinine 3.8 mg/dL (0.7-1.3) Estimated GFR (Cockcroft-Gault) 15.8 Glucose Level 136 mg/dL (70-99) Calcium Level 8.1 mg/dL (8.5-10.1) Magnesium Level 2.1 mg/dL (1.8-2.4) Results All relevant outside records, renal labs, imaging studies, telemetry/EKG's were reviewed. Justicifation of Admission Dx: Justifications for Admission: Justification of Admission Dx: N/A ZEKE PAREDES MD Jul 07, 2021 10:15
[2021-07-07 10:31] VITALS: BP 160/69
--- NOTE | 2021-07-07 10:31 | CONS ---
DATE OF CONSULTATION: 07/07/2021 REASON FOR CONSULTATION: I was asked to see this 70-year-old gentleman for acute respiratory failure. HISTORY OF PRESENT ILLNESS: He does have history of [id number] smoking, quit smoking about 30 years ago, has not been diagnosed with COPD, but has not had a pulmonary function test. He had a sleep study many, many years ago, did not show sleep apnea, but he snores and has excessive daytime sleepiness. He has had increased shortness of breath, lower extremity edema for the past few days. He has occasional cough, but not much sputum production. He did receive COVID vaccine couple of days ago, had chills. He does not exercise. His exercise tolerance is about a couple of steps. He was brought to the Emergency Room, his O2 saturation was in 60s. He was placed on BiPAP. His oxygenation improved. Currently, he is on 10 liters of oxygen with O2 saturation of 96%. 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 PAST MEDICAL HISTORY: Congestive heart failure, hypertension. ALLERGIES: PENICILLIN, STATIN, CLINDAMYCIN, LISINOPRIL AND NAPROSYN. MEDICATIONS: Currently he is on Lasix p.o., gabapentin, doxycycline, Coreg, Imdur, hydralazine, Protonix, Norvasc, allopurinol. SOCIAL HISTORY: History of [id number] smoking, stopped smoking 30 years ago. FAMILY HISTORY: Hypertension. REVIEW OF SYSTEMS: As mentioned as above, other systems otherwise negative. PHYSICAL EXAMINATION: GENERAL: This is a morbidly obese gentleman. His BMI is 39.9. VITAL SIGNS: His O2 saturation on 10 liters of oxygen is 96%, respiratory rate is 18, heart rate is 62, blood pressure 171/84, temperature 100.1. HEENT: Normocephalic, atraumatic. Pupils equal, round, reactive to light. He has shallow oropharynx. Nose is clear. NECK: Short, thick. There is no lymphadenopathy or thyromegaly. CARDIOVASCULAR: Regular rate and rhythm. CHEST: Inspection is normal. LUNGS: There are bibasilar crackles, dullness at the bases. ABDOMEN: Soft and obese. Bowel sounds are good. EXTREMITIES: There is edema. SKIN: Chronic changes. NEUROLOGIC: Alert. LABORATORY AND DIAGNOSTIC DATA: I reviewed the following lab data: Chest x-ray shows bilateral infiltrate, effusion. Sodium 141, potassium 4, chloride 106, CO2 of 26, BUN 60, creatinine 3.8, on admission creatinine was 3.9, troponin 0.048 and repeat 0.039, BNP 4289, lactic acid was 0.5. Total bili 0.5, AST 33, ALT 36, alk phos 112. ABG on 6 liters of oxygen yesterday, pH 7.36, pCO2 of 36, pO2 of 56. WBC 12.3, hemoglobin 13.3, platelets 148. COVID RNA and rapid negative. IMPRESSION: 1. Acute respiratory failure, multifactorial in etiology. I suspect it is mostly secondary to acute diastolic congestive heart failure and volume overload secondary to acute kidney injury, cannot rule out pneumonia. 2. Abnormal chest x-ray. 3. Acute diastolic congestive heart failure. 4. Acute kidney injury. 5. Lower extremity edema, most likely secondary to volume overload and congestive heart failure, rule out deep vein thrombosis. 6. Hypertension. 7. Obesity, suspect obstructive sleep apnea-hypopnea syndrome. 8. Ex-smoker, suspect chronic obstructive pulmonary disease. RECOMMENDATIONS: 1. Titrate FiO2 to keep O2 saturation 90%. 2. Use BiPAP p.r.n. during day, continuously at night. 3. Agree with Lasix changed to IV, as he has generalized edema p.o. Lasix might not be absorbed well. 4. Follow Nephrology consultation. Monitor potassium and creatinine. 5. Follow Cardiology recommendation. 6. Continue antibiotic. 7. Follow up blood cultures. 8. Start bronchodilator. 9. I have discussed obstructive sleep apnea-hypopnea syndrome. The importance of diagnosis and treatment if untreated increase cardiovascular and ANESTHESIOLOGY FACULTY morbidity or mortality. I do recommend sleep study as an outpatient. 10. I do recommend pulmonary function test as an outpatient. 11. I will order a lower extremity venous Doppler. 12. Start Lovenox for DVT prophylaxis. 13. Protonix for stress ulcer prophylaxis. 14. Monitor respiratory status very closely. 15. The patient is DNR. Thank you very much for allowing me to participate in care of this very nice gentleman. I have discussed the findings and recommendations with the patient and his son. PHANI/RYAN DR: Isadora TID: [id number]
[2021-07-07] MEDS: IPRATRPIUM/ALBUTEROL 0.5/2.5MG 3 ML NEBU. NEB SCH ×3 (12:00→20:47)
[2021-07-07] MEDS: ENOXAPARIN 30 MG/0.3 ML SYRINGE. SQ SCH (12:08)
--- NOTE | 2021-07-07 12:48 | PDOC ---
Infectious Disease Note Vital Signs: Vital Signs Vital Signs Date Time Temp Pulse Resp B/P (MAP) Pulse Ox O2 Delivery O2 Flow Rate FiO2 07/07/21 12:03 96 High Flow Nasal Cannula 10.0 07/07/21 10:31 98.8 61 20 160/69 (99) 98.8 Medications: Inpatient Meds: Medications reviewed. Labs: Lab Laboratory Tests Test 07/06/21 13:25 07/06/21 21:39 07/07/21 03:50 07/07/21 12:02 Troponin I Quantitative 0.039 ng/mL (0.000-0.055) Glucose (Fingerstick) 171 mg/dL (70-99) 132 mg/dL (70-99) Sodium Level 141 mmol/L (136-145) Potassium Level 4.0 mmol/L (3.5-5.1) Chloride Level 106 mmol/L (98-107) Carbon Dioxide Level 26 mmol/L (21-32) Anion Gap 9 (6-14) Blood Urea Nitrogen 60 mg/dL (8-26) Creatinine 3.8 mg/dL (0.7-1.3) Estimated GFR (Cockcroft-Gault) 15.8 Glucose Level 136 mg/dL (70-99) Calcium Level 8.1 mg/dL (8.5-10.1) Magnesium Level 2.1 mg/dL (1.8-2.4) Objective: Assessment: Patient seen and examined Plan: Plan of Care ID consult dictated Discussed with daughter at bedside and RN Thank you [id number] WINIFRED PAREDES MD Jul 07, 2021 12:48
--- NOTE | 2021-07-07 13:08 | PDOC ---
PROGRESS NOTES Date of Service DATE: 07/07/21 TIME: 13:05 Subjective Subjective Patient seen and examined Objective Objective Vital Signs Date Time Temp Pulse Resp B/P (MAP) Pulse Ox O2 Delivery O2 Flow Rate FiO2 07/07/21 12:03 96 High Flow Nasal Cannula 10.0 07/07/21 10:31 98.8 61 20 160/69 (99) 98.8 Intake and Output 07/07/21 07:00 Intake Total 1280 ml Output Total 700 ml Balance 580 ml Intake Oral 1280 ml Output Urine Total 700 ml Physical Exam Abdomen: Normal bowel sounds Heart: Regular rate General: mild distress Lungs: Other (Mildly decreased breath sounds) Assessment Assessment Problems Medical Problems: (1) Acute respiratory distress Status: Acute (2) CHF (congestive heart failure) Status: Acute (3) Person under investigation for COVID-19 Status: Acute 1. Acute respiratory failure. 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 He is feeling better today. Initially elevated BNP at 4289. The patient is followed by the renal service for progressive renal disease with a creatinine today of 3.8. We will continue present treatment from a cardiac viewpoint. Echo pending. We will obtain records from [facility]. 2. Progressive renal disease. Renal evaluation as above. 3. Hypertension. Continuing baseline medications and monitoring. 4. Diabetes mellitus. Continue present treatments and monitor as above. Comment Review of Relevant I have reviewed the following items shay (where applicable) has been applied. Labs Laboratory Tests Test 07/05/21 23:28 07/06/21 02:35 07/06/21 02:48 07/06/21 07:26 White Blood Count 12.3 x10^3/uL (4.0-11.0) Red Blood Count 3.98 x10^6/uL (4.30-5.70) Hemoglobin 13.3 g/dL (13.0-17.5) Hematocrit 40.3 % (39.0-53.0) Mean Corpuscular Volume 101 fL (79-100) Mean Corpuscular Hemoglobin 34 pg (25-35) Mean Corpuscular Hemoglobin Concent 33 g/dL (31-37) Red Cell Distribution Width 15.6 % (11.5-14.5) Platelet Count 148 x10^3/uL (140-400) Neutrophils (%) (Auto) 78 % (31-73) Lymphocytes (%) (Auto) 13 % (24-48) Monocytes (%) (Auto) 6 % (0-9) Eosinophils (%) (Auto) 2 % (0-3) Basophils (%) (Auto) 1 % (0-3) Neutrophils # (Auto) 9.7 x10^3/uL (1.8-7.7) Lymphocytes # (Auto) 1.6 x10^3/uL (1.0-4.8) Monocytes # (Auto) 0.7 x10^3/uL (0.0-1.1) Eosinophils # (Auto) 0.3 x10^3/uL (0.0-0.7) Basophils # (Auto) 0.1 x10^3/uL (0.0-0.2) Sodium Level 140 mmol/L (136-145) Potassium Level 4.4 mmol/L (3.5-5.1) Chloride Level 104 mmol/L (98-107) Carbon Dioxide Level 25 mmol/L (21-32) Anion Gap 11 (6-14) Blood Urea Nitrogen 63 mg/dL (8-26) Creatinine 3.9 mg/dL (0.7-1.3) Estimated GFR (Cockcroft-Gault) 15.4 BUN/Creatinine Ratio 16 (6-20) Glucose Level 139 mg/dL (70-99) Calcium Level 8.5 mg/dL (8.5-10.1) Total Bilirubin 0.5 mg/dL (0.2-1.0) Aspartate Amino Transf (AST/SGOT) 33 U/L (15-37) Alanine Aminotransferase (ALT/SGPT) 36 U/L (16-63) Alkaline Phosphatase 112 U/L (46-116) Troponin I Quantitative 0.018 ng/mL (0.000-0.055) UW-[id number]-V-Type Natriuretic Peptide 4289 pg/mL (0-124) Total Protein 7.4 g/dL (6.4-8.2) Albumin 3.6 g/dL (3.4-5.0) Albumin/Globulin Ratio 0.9 (1.0-1.7) SARS-CoV-2 RNA (FELICITY) Negative (Negative) SARS-CoV-2 Antigen (Rapid) Negative (NEGATIVE) Lactic Acid Level 0.5 mmol/L (0.4-2.0) Glucose (Fingerstick) 111 mg/dL (70-99) Test 07/06/21 07:40 07/06/21 09:30 07/06/21 12:15 07/06/21 13:25 Troponin I Quantitative 0.048 ng/mL (0.000-0.055) 0.039 ng/mL (0.000-0.055) O2 Saturation 88 % (92-99) Arterial Blood pH 7.36 (7.35-7.45) Arterial Blood pCO2 at Patient Temp 36 mmHg (35-46) Arterial Blood pO2 at Patient Temp 56 mmHg (65-108) Arterial Blood HCO3 20 mmol/L (21-28) Arterial Blood Base Excess -5 mmol/L (-3-3) FiO2 6 lpm nc Glucose (Fingerstick) 160 mg/dL (70-99) Test 07/06/21 21:39 07/07/21 03:50 07/07/21 12:02 Glucose (Fingerstick) 171 mg/dL (70-99) 132 mg/dL (70-99) Sodium Level 141 mmol/L (136-145) Potassium Level 4.0 mmol/L (3.5-5.1) Chloride Level 106 mmol/L (98-107) Carbon Dioxide Level 26 mmol/L (21-32) Anion Gap 9 (6-14) Blood Urea Nitrogen 60 mg/dL (8-26) Creatinine 3.8 mg/dL (0.7-1.3) Estimated GFR (Cockcroft-Gault) 15.8 Glucose Level 136 mg/dL (70-99) Calcium Level 8.1 mg/dL (8.5-10.1) Magnesium Level 2.1 mg/dL (1.8-2.4) Laboratory Tests Test 07/06/21 13:25 07/06/21 21:39 07/07/21 03:50 07/07/21 12:02 Troponin I Quantitative 0.039 ng/mL (0.000-0.055) Glucose (Fingerstick) 171 mg/dL (70-99) 132 mg/dL (70-99) Sodium Level 141 mmol/L (136-145) Potassium Level 4.0 mmol/L (3.5-5.1) Chloride Level 106 mmol/L (98-107) Carbon Dioxide Level 26 mmol/L (21-32) Anion Gap 9 (6-14) Blood Urea Nitrogen 60 mg/dL (8-26) Creatinine 3.8 mg/dL (0.7-1.3) Estimated GFR (Cockcroft-Gault) 15.8 Glucose Level 136 mg/dL (70-99) Calcium Level 8.1 mg/dL (8.5-10.1) Magnesium Level 2.1 mg/dL (1.8-2.4) Microbiology 07/06/21 Blood Culture - Final, Complete Medications Current Medications Furosemide (Lasix) 40 mg STK-MED ONCE .ROUTE ; Start 07/05/21 at 23:28; Stop 07/05/21 at 23:28; Status DC Furosemide (Lasix) 40 mg 1X ONCE IVP Last administered on 07/05/21at 23:35; Start 07/06/21 at 00:45; Stop 07/06/21 at 00:51; Status DC Allopurinol (Zyloprim) 300 mg DAILY PO Last administered on 07/07/21at 09:15; Start 07/06/21 at 13:00 Amlodipine Besylate (Norvasc) 10 mg DAILY PO Last administered on 07/07/21at 09:16; Start 07/06/21 at 13:00 Aspirin (Ecotrin) 81 mg DAILY PO Last administered on 07/07/21at 09:16; Start 07/06/21 at 13:00 Furosemide (Lasix) 20 mg QODAY PO Last administered on 07/07/21at 09:15; Start 07/07/21 at 09:00 Furosemide (Lasix) 40 mg QODAY PO Last administered on 07/06/21at 13:11; Start 07/06/21 at 13:00 Gabapentin (Neurontin) 100 mg DAILY PO ; Start 07/06/21 at 13:00; Stop 07/06/21 at 13:19; Status DC Hydralazine HCl (Apresoline) 50 mg TID PO Last administered on 07/07/21at 09:17; Start 07/06/21 at 14:00 Isosorbide Mononitrate (Ismo) 20 mg BID92 PO Last administered on 07/07/21at 09:16; Start 07/06/21 at 14:00 Carvedilol (Coreg) 25 mg BIDWMEALS PO Last administered on 07/07/21at 09:18; Start 07/06/21 at 17:00 Multivitamins (Thera M Plus) 1 tab DAILY PO Last administered on 07/07/21at 09:17; Start 07/07/21 at 09:00 Pantoprazole Sodium (Protonix) 40 mg DAILYAC PO Last administered on 07/07/21at 06:21; Start 07/06/21 at 13:00 Linagliptin (Tradjenta) 5 mg DAILY PO Last administered on 07/07/21at 09:15; Start 07/06/21 at 13:00 Piperacillin Sod/ Tazobactam Sod (Zosyn Per Pharmacy) 1 each PRN DAILY PRN MC SEE COMMENTS; Start 07/06/21 at 12:15; Status UNV Doxycycline Hyclate 100 mg/ Dextrose 100 ml @ 50 mls/hr Q12HR IV ; Start 07/06/21 at 13:00; Stop 07/06/21 at 16:34; Status DC Gabapentin (Neurontin) 100 mg HS PO Last administered on 07/06/21at 21:15; Start 07/06/21 at 21:00 Furosemide (Lasix) 80 mg Q6HRS PO Last administered on 07/07/21at 12:06; Start 07/06/21 at 18:00; Stop 07/07/21 at 12:01; Status DC Doxycycline Hyclate (Vibra-Tab) 100 mg BID PO Last administered on 07/07/21at 09:15; Start 07/06/21 at 18:00 Acetaminophen (Tylenol) 650 mg PRN Q6HRS PRN PO MILD PAIN / TEMP Last administered on 07/07/21at 03:31; Start 07/07/21 at 03:00 Enoxaparin Sodium (Lovenox 30mg Syringe) 30 mg Q24H SQ Last administered on 07/07/21at 12:08; Start 07/07/21 at 10:00 Pantoprazole Sodium (Protonix) 40 mg DAILYAC PO ; Start 07/08/21 at 07:30; Status UNV Albuterol/ Ipratropium (Duoneb) 3 ml RTQID NEB Last administered on 07/07/21at 12:00; Start 07/07/21 at 12:00 Active Scripts Active Reported Multi Vitamin Daily (Multivitamin) 1 Each Tablet 1 Tab PO DAILY 30 Days Gabapentin (Gabapentin) 100 Mg Capsule 100 Mg PO DAILY Carvedilol 25 Mg Tablet 25 Mg PO BIDWMEALS Amlodipine Besylate 10 Mg Tablet 10 Mg PO DAILY Allopurinol 300 Mg Tablet 1 Tab PO DAILY Januvia (Sitagliptin Phosphate) 25 Mg Tablet 25 Mg PO DAILY Furosemide 40 Mg Tablet 1 Tab PO QODAY Furosemide 20 Mg Tablet 1 Tab PO QODAY Isosorbide Mononitrate Er (Isosorbide Mononitrate) 30 Mg Tab.er.24h 20 Mg PO BID Hydralazine Hcl 50 Mg Tablet 1 Tab PO TID Aspir 81 (Aspirin) 81 Mg Tablet.dr 1 Tab PO DAILY Omeprazole 40 Mg Capsule.dr 40 Mg PO DAILY Vitals/I & O Vital Sign - Last 24 Hours 07/06/21 07/06/21 07/06/21 07/06/21 13:11 13:13 14:28 15:00 Temp 99.4 99.4 Pulse 91 86 92 69 Resp 20 B/P (MAP) 211/80 211/80 177/76 177/76 (109) Pulse Ox 94 O2 Delivery Nasal Cannula O2 Flow Rate 11.0 07/06/21 07/06/21 07/06/21 07/06/21 15:26 17:13 19:40 20:00 Temp 98.5 98.5 Pulse 69 65 Resp 18 B/P (MAP) 177/76 165/75 (105) Pulse Ox 88 93 O2 Delivery High Flow Nasal Cannula Nasal Cannula Nasal Cannula O2 Flow Rate 10.0 4.0 7.0 07/06/21 07/06/21 07/07/21 07/07/21 21:15 22:30 02:46 07:50 Temp 96.8 100.1 98.9 96.8 100.1 98.9 Pulse 65 67 62 60 Resp 16 18 18 B/P (MAP) 165/75 189/76 (113) 171/84 (113) 180/78 (112) Pulse Ox 98 100 97 O2 Delivery Nasal Cannula Nasal Cannula Nasal Cannula O2 Flow Rate 4.0 4.0 4.0 07/07/21 07/07/21 07/07/21 07/07/21 08:10 08:10 08:49 09:16 Pulse 86 B/P (MAP) 188/86 Pulse Ox 96 O2 Delivery Nasal Cannula High Flow Nasal Cannula O2 Flow Rate 10.0 4.0 10.0 07/07/21 07/07/21 07/07/21 07/07/21 09:16 09:17 09:18 10:31 Temp 98.8 98.8 Pulse 86 86 86 61 Resp 20 B/P (MAP) 188/86 188/86 188/86 160/69 (99) Pulse Ox 95 O2 Delivery Nasal Cannula O2 Flow Rate 4.0 07/07/21 12:03 Pulse Ox 96 O2 Delivery High Flow Nasal Cannula O2 Flow Rate 10.0 Intake and Output 07/06/21 07/06/21 07/07/21 15:00 23:00 07:00 Intake Total 800 ml 480 ml 0 ml Output Total 300 ml 400 ml Balance 800 ml 180 ml -400 ml Justifications for Admission Other Justification DAVID LOCO MD Jul 07, 2021 13:07
--- NOTE | 2021-07-07 13:10 | PDOC ---
[facility] PROGRESS NOTE Date of Service DOS: DATE: 07/07/21 TIME: 13:07 Chief Complaint Chief Complaint End-stage renal disease (he needs dialysis but is refusing) Chronic renal disease, he states that he has been talking about possibly doing dialysis on him for some time; edema, CHF, anemia, polypharmacy, hypertension, neuropathy, GERD, gout. History of Present Illness History of Present Illness 07/07/2021 Patient seen and examined Discussed with RN Chart reviewed I spent a lot of time explaining the situation and that he needs dialysis but he continues to refuse I spoke with Dr. Gamez this morning he agrees he needs dialysis I spoke with the patient's daughter Abby Vitals/I&O Vitals/I&O: Vital Signs Date Time Temp Pulse Resp B/P (MAP) Pulse Ox O2 Delivery O2 Flow Rate FiO2 07/07/21 12:03 96 High Flow Nasal Cannula 10.0 07/07/21 10:31 98.8 61 20 160/69 (99) 98.8 I & O 07/06/21 07/06/21 07/07/21 15:00 23:00 07:00 Intake Total 800 ml 480 ml 0 ml Output Total 300 ml 400 ml Balance 800 ml 180 ml -400 ml Physical Exam General: Alert, Other (Mild to moderate distress) Heart: Regular rate Lungs: Crackles Abdomen: Normal bowel sounds, Other (Distended) Extremities: Other (2+ edema) Skin: No significant lesion, Other (Somewhat thin slightly frail) Labs Labs: Laboratory Tests Test 07/06/21 13:25 07/06/21 21:39 07/07/21 03:50 07/07/21 12:02 Troponin I Quantitative 0.039 ng/mL (0.000-0.055) Glucose (Fingerstick) 171 mg/dL (70-99) 132 mg/dL (70-99) Sodium Level 141 mmol/L (136-145) Potassium Level 4.0 mmol/L (3.5-5.1) Chloride Level 106 mmol/L (98-107) Carbon Dioxide Level 26 mmol/L (21-32) Anion Gap 9 (6-14) Blood Urea Nitrogen 60 mg/dL (8-26) Creatinine 3.8 mg/dL (0.7-1.3) Estimated GFR (Cockcroft-Gault) 15.8 Glucose Level 136 mg/dL (70-99) Calcium Level 8.1 mg/dL (8.5-10.1) Magnesium Level 2.1 mg/dL (1.8-2.4) Assessment and Plan Assessmemt and Plan Problems Medical Problems: (1) Acute respiratory distress Status: Acute (2) CHF (congestive heart failure) Status: Acute (3) Person under investigation for COVID-19 Status: Acute End-stage renal disease (he needs dialysis but is refusing) Chronic renal disease, he states that he has been talking about possibly doing dialysis on him for some time; edema, CHF, anemia, polypharmacy, hypertension, neuropathy, GERD, gout. Plan We are hoping to place a dialysis catheter but the patient is still refusing. I explained his prognosis is very poor without dialysis and he understands. For now continue to trend labs Await further nephrology input Appreciate cardiology input as well Home meds DVT prophylaxis DNR CC time 31 minutes Comment Review of Relevant I have reviewed the following items shay (where applicable) has been applied. Medications: Current Medications Medications (Trade) Dose Ordered Sig/Kory Route PRN Reason Start Time Stop Time Status Last Admin Dose Admin Furosemide (Lasix) 20 mg QODAY PO 07/07/21 09:00 07/07/21 09:15 Hydralazine HCl (Apresoline) 50 mg TID PO 07/06/21 14:00 07/07/21 09:17 Isosorbide Mononitrate (Ismo) 20 mg BID92 PO 07/06/21 14:00 07/07/21 09:16 Carvedilol (Coreg) 25 mg BIDWMEALS PO 07/06/21 17:00 07/07/21 09:18 Multivitamins (Thera M Plus) 1 tab DAILY PO 07/07/21 09:00 07/07/21 09:17 Gabapentin (Neurontin) 100 mg HS PO 07/06/21 21:00 07/06/21 21:15 Furosemide (Lasix) 80 mg Q6HRS PO 07/06/21 18:00 07/07/21 12:01 DC 07/07/21 12:06 Doxycycline Hyclate (Vibra-Tab) 100 mg BID PO 07/06/21 18:00 07/07/21 09:15 Acetaminophen (Tylenol) 650 mg PRN Q6HRS PRN PO MILD PAIN / TEMP 07/07/21 03:00 07/07/21 03:31 Enoxaparin Sodium (Lovenox 30mg Syringe) 30 mg Q24H SQ 07/07/21 10:00 07/07/21 12:08 Albuterol/ Ipratropium (Duoneb) 3 ml RTQID NEB 07/07/21 12:00 07/07/21 12:00 Justifications for Admission Other Justification RENE NICK III DO Jul 07, 2021 13:10
[2021-07-07 15:38] VITALS: BP 151/73
[2021-07-07] MEDS ORDERED: DAPTOmycin (GENERIC) IVPB 600 MG in IV NORMAL SALINE 50ML 50 ML IV SCH (16:00)
--- NOTE | 2021-07-07 18:38 | NUR ---
The patient, JOSELO KEMP, 70 y/o, M admitted by RENE NICK III, DO, was given written information regarding hospital policies, unit procedures and contact persons. Valuables were checked and and clothes, dentures, and glasses. Patient family requesting to stay with patient at bedside and nursing living supervisor allowed. Patient only speaks latvian.
[2021-07-07 19:34] VITALS: BP 175/76
[2021-07-07] MEDS: GABAPENTIN 100 MG CAPSULE. PO SCH (22:30)
[2021-07-07] MEDS: LACTOBACILLUS RHAMNOSUS GG 1 CAPSULE. PO SCH (22:30)
[2021-07-07 22:39] VITALS: BP_SYST 157; BP_SYST 175; BP_DIAS 69; BP_DIAS 76
[2021-07-08 02:41] VITALS: BP 176/85
[2021-07-08 05:15] VITALS: BP 152/65
--- NOTE | 2021-07-08 05:41 | CONS ---
DATE OF CONSULTATION: 07/07/2021 REFERRING PHYSICIAN: Dr. Walter. REASON FOR CONSULTATION: Bacteremia, antibiotic management. HISTORY OF PRESENT ILLNESS: This is a 70-year-old male with past medical history of CHF, who presented to the ER with complaints of shortness of breath. He was hypoxic on presentation, white count was 12. He had noticed worsening swelling of both the lower extremities. He took extra dose of Lasix, but that was without any help. He had low-grade fever. He did receive COVID vaccination day before admission. He also had some subjective chills. He denies any sputum production. Denies any headache, sore throat, nausea, vomiting, diarrhea, abdominal pain. He was started on CPAP. Cardiology evaluated the patient. He was diagnosed with CHF with progressive kidney disease. His creatinine was greater than 3. The patient was started on empiric Zosyn and doxycycline due to pulmonary infiltrates. Blood culture on admission 10/15 bottles is positive for GPC. ID consultation is requested for antibiotic management. PAST MEDICAL HISTORY: CHF, hypertension, acute renal failure. FAMILY HISTORY: Hypertension. SOCIAL HISTORY: No smoking, no alcohol. Lives alone, has a daughter, has 2 dogs and 3 cats. REVIEW OF SYSTEMS: Negative except for above in HPI. CURRENT MEDICATIONS: Zosyn one dose as pt does not have iv access , doxycycline. Other medications reviewed in medication list. ALLERGIES: PENICILLIN CAUSING HIVES. Has tolerated amoxicillin, statins, lisinopril, Naproxen. CLINDAMYCIN CAUSING MILD DIARRHEA. PHYSICAL EXAMINATION: VITAL SIGNS: Temperature 98.8, T-max 100.1, pulse 61, respiratory rate 20, blood pressure 150/69, oxygen saturation 96% on 10 liters O2 by nasal cannula. GENERAL: Alert, oriented x 3 male sitting upright, in chair, in no acute distress. HEENT: Normocephalic, atraumatic. Anicteric. No thrush. NECK: Supple, no JVD. LUNGS: Bilateral crackles present. HEART: S1, S2. ABDOMEN: Soft, nontender, nondistended. Bowel sounds present. EXTREMITIES: Bilateral lower extremity edema. DERM: Chronic changes. NEUROLOGIC: Alert and oriented x 3, grossly nonfocal. LABORATORY DATA: WBC is 12.3, hemoglobin 13.3, hematocrit 40.3, platelets of 148, neutrophils 9.7. Sodium 140, potassium 4.4, chloride 104, bicarbonate 25, BUN 63, creatinine 3.9. Lactate 0.5. BNP 4289, glucose 111, albumin 3.6. SARS-COVID negative. MICROBIOLOGY: Blood culture 1/4 bottles positive for GPC in pairs and small clusters. IMAGING: Chest x-ray: Multifocal pneumonia worse in the right base. Lower extremity ultrasound pending at this time. IMPRESSION: 1. Low-grade febrile illness. 2. Leukocytosis. 3. Acute hypoxic respiratory failure, multifactorial with congestive heart failure, possible pneumonia. 4. Bacteremia 1 out of 4 bottles present on admission could be contaminant 5. Congestive heart failure. 6. Diabetes mellitus. 7. Acute kidney injury on chronic kidney disease. RECOMMENDATIONS: 1. Continue doxycycline. 2. Start daptomycin pending blood culture results. 3. Monitor labs 4. Follow up blood culture results. 5. Continue supportive care. Thank you for allowing me to participate in this patient's care. If you have any questions, do not hesitate to contact me. Discussed with SANTIAGO DUARTE/GOPI/DEJON DR: Neelima TID: [id number] SUREKHA
[2021-07-08] MEDS: PANTOPRAZOLE 40 MG TABLET.DR. PO SCH (05:49)
[2021-07-08 06:14] LABS: BASO # 0.1 x10^3/uL (0.0-0.2); BASO % 1 % (0-3); EOS # 0.2 x10^3/uL (0.0-0.7); EOS % 3 % (0-3); HEMATOCRIT 33.8 % (39.0-53.0); HEMOGLOBIN 11.2 g/dL (13.0-17.5); LYMPH # 0.9 x10^3/uL (1.0-4.8); LYMPH % 10 % (24-48); MEAN CORPUSCULAR HEMOGLOBIN 34 pg (25-35); MEAN CORPUSCULAR HGB CONC 33 g/dL (31-37); MEAN CORPUSCULAR VOLUME 102 fL (79-100); MONO # 0.9 x10^3/uL (0.0-1.1); MONO % 10 % (0-9); NEUT % 77 % (31-73); PLATELET COUNT 128 x10^3/uL (140-400); RED BLOOD COUNT 3.31 x10^6/uL (4.30-5.70); RED CELL DISTRIBUTION WIDTH 15.5 % (11.5-14.5)
[2021-07-08 06:29] LABS: ALBUMIN 2.9 g/dL (3.4-5.0); ALBUMIN/GLOBULIN RATIO 0.8 (1.0-1.7); CALCIUM 8.3 mg/dL (8.5-10.1); CREATININE 3.8 mg/dL (0.7-1.3); GFR 15.8; TOTAL BILIRUBIN 0.5 mg/dL (0.2-1.0); TOTAL PROTEIN 6.5 g/dL (6.4-8.2)
[2021-07-08 07:00] VITALS: BP 160/77
[2021-07-08] MEDS: IPRATRPIUM/ALBUTEROL 0.5/2.5MG 3 ML NEBU. NEB SCH ×3 (07:20→16:00)
[2021-07-08] MEDS ORDERED: PANTOPRAZOLE 40 MG TABLET.DR. PO SCH (07:30)
--- NOTE | 2021-07-08 07:58 | PDOC ---
Infectious Disease Note Subjective: Subjective Patient feels better Unable to complete IV daptomycin due to IV infiltration Daughter at bedside Vital Signs: Vital Signs Vital Signs Date Time Temp Pulse Resp B/P (MAP) Pulse Ox O2 Delivery O2 Flow Rate FiO2 07/08/21 07:22 96 Nasal Cannula 10.0 07/08/21 05:15 18 152/65 (94) 07/08/21 02:41 98.2 67 98.2 Physical Exam: PHYSICAL EXAM GENERAL: Alert, oriented x 3 male sitting upright, in chair, in no acute distress. HEENT: Normocephalic, atraumatic. Anicteric. No thrush. NECK: Supple, no JVD. LUNGS: Bilateral crackles present. HEART: S1, S2. ABDOMEN: Soft, nontender, nondistended. Bowel sounds present. EXTREMITIES: Bilateral lower extremity edema. DERM: Chronic changes. Bruises especially over both upper extremities NEUROLOGIC: Alert and oriented x 3, grossly nonfocal. Medications: Inpatient Meds: Medications reviewed. Labs: Lab Laboratory Tests Test 07/07/21 12:02 07/07/21 16:33 07/07/21 20:37 07/08/21 05:55 Glucose (Fingerstick) 132 mg/dL (70-99) 200 mg/dL (70-99) 162 mg/dL (70-99) White Blood Count 9.0 x10^3/uL (4.0-11.0) Red Blood Count 3.31 x10^6/uL (4.30-5.70) Hemoglobin 11.2 g/dL (13.0-17.5) Hematocrit 33.8 % (39.0-53.0) Mean Corpuscular Volume 102 fL (79-100) Mean Corpuscular Hemoglobin 34 pg (25-35) Mean Corpuscular Hemoglobin Concent 33 g/dL (31-37) Red Cell Distribution Width 15.5 % (11.5-14.5) Platelet Count 128 x10^3/uL (140-400) Neutrophils (%) (Auto) 77 % (31-73) Lymphocytes (%) (Auto) 10 % (24-48) Monocytes (%) (Auto) 10 % (0-9) Eosinophils (%) (Auto) 3 % (0-3) Basophils (%) (Auto) 1 % (0-3) Neutrophils # (Auto) 7.0 x10^3/uL (1.8-7.7) Lymphocytes # (Auto) 0.9 x10^3/uL (1.0-4.8) Monocytes # (Auto) 0.9 x10^3/uL (0.0-1.1) Eosinophils # (Auto) 0.2 x10^3/uL (0.0-0.7) Basophils # (Auto) 0.1 x10^3/uL (0.0-0.2) Sodium Level 140 mmol/L (136-145) Potassium Level 4.0 mmol/L (3.5-5.1) Chloride Level 104 mmol/L (98-107) Carbon Dioxide Level 26 mmol/L (21-32) Anion Gap 10 (6-14) Blood Urea Nitrogen 61 mg/dL (8-26) Creatinine 3.8 mg/dL (0.7-1.3) Estimated GFR (Cockcroft-Gault) 15.8 BUN/Creatinine Ratio 16 (6-20) Glucose Level 103 mg/dL (70-99) Calcium Level 8.3 mg/dL (8.5-10.1) Total Bilirubin 0.5 mg/dL (0.2-1.0) Aspartate Amino Transf (AST/SGOT) 18 U/L (15-37) Alanine Aminotransferase (ALT/SGPT) 30 U/L (16-63) Alkaline Phosphatase 88 U/L (46-116) Total Protein 6.5 g/dL (6.4-8.2) Albumin 2.9 g/dL (3.4-5.0) Albumin/Globulin Ratio 0.8 (1.0-1.7) Test 07/08/21 07:16 Glucose (Fingerstick) 97 mg/dL (70-99) Objective: Assessment: 1. Low-grade febrile illness. Improved 2. Leukocytosis. 3. Acute hypoxic respiratory failure, multifactorial with congestive heart failure, possible pneumonia. 4. Bacteremia 1 out of 4 bottles present on admission could be contaminant 5. Congestive heart failure. 6. Diabetes mellitus. 7. Acute kidney injury on chronic kidney disease. Plan: Plan of Care Daptomycin was ordered but patient could not complete due to IV infiltration Hold off on PICC line placement Will start Zyvox Monitor labs Follow up blood culture results. Continue supportive care. WINIFRED PAREDES MD Jul 08, 2021 07:58
--- NOTE | 2021-07-08 08:09 | RAD ---
EXAMINATION: US BILATERAL LOWEREXTREMITY VENOUS DOPPLER (LOWER EXTREMITY VENOUS ULTRASOUND) CLINICAL HISTORY: Lower extremity edema TECHNIQUE: Sonographic grayscale images obtained of the bilateral lower extremity deep venous systems with color flow Doppler, compression, and augmentation techniques as indicated. Images obtained and stored in a permanent archive. COMPARISON: None FINDINGS: RIGHT: No evidence of absent flow or incompressibility within the common femoral vein, femoral vein, or popl iteal vein. Visualized calf veins appear patent on limited evaluation. LEFT: No evidence of absent flow or incompressibility within the common femoral vein, femoral vein, or popl iteal vein. Visualized calf veins appear patent on limited evaluation. IMPRESSION: No evidence of bilateral lower extremity DVT. Electronically signed by: Patricio Rangel DO (07/08/2021 8:07 AM) [id number]
--- NOTE | 2021-07-08 08:17 | PDOC ---
PULMONARY PROGRESS NOTES DATE: 07/08/21 TIME: 08:17 Subjective Patient feels better, not on home Vitals Vital Signs Date Time Temp Pulse Resp B/P (MAP) Pulse Ox O2 Delivery O2 Flow Rate FiO2 07/08/21 08:00 Nasal Cannula 10.0 07/08/21 07:22 96 07/08/21 05:15 18 152/65 (94) 07/08/21 02:41 98.2 67 98.2 ROS: No Nausea, No Chest Pain, No Abdominal Pain, No Increase Cough Lungs: Crackles Cardiovascular: S1, S2 Abdomen: Soft Neuro Exam: Alert Extremities: Other (Some edema) Skin: Warm Labs Laboratory Tests Test 07/06/21 09:30 07/06/21 12:15 07/06/21 13:25 07/06/21 21:39 O2 Saturation 88 % (92-99) Arterial Blood pH 7.36 (7.35-7.45) Arterial Blood pCO2 at Patient Temp 36 mmHg (35-46) Arterial Blood pO2 at Patient Temp 56 mmHg (65-108) Arterial Blood HCO3 20 mmol/L (21-28) Arterial Blood Base Excess -5 mmol/L (-3-3) FiO2 6 lpm nc Glucose (Fingerstick) 160 mg/dL (70-99) 171 mg/dL (70-99) Troponin I Quantitative 0.039 ng/mL (0.000-0.055) Test 07/07/21 03:50 07/07/21 12:02 07/07/21 16:33 07/07/21 20:37 Sodium Level 141 mmol/L (136-145) Potassium Level 4.0 mmol/L (3.5-5.1) Chloride Level 106 mmol/L (98-107) Carbon Dioxide Level 26 mmol/L (21-32) Anion Gap 9 (6-14) Blood Urea Nitrogen 60 mg/dL (8-26) Creatinine 3.8 mg/dL (0.7-1.3) Estimated GFR (Cockcroft-Gault) 15.8 Glucose Level 136 mg/dL (70-99) Calcium Level 8.1 mg/dL (8.5-10.1) Magnesium Level 2.1 mg/dL (1.8-2.4) Glucose (Fingerstick) 132 mg/dL (70-99) 200 mg/dL (70-99) 162 mg/dL (70-99) Test 07/08/21 05:55 07/08/21 07:16 White Blood Count 9.0 x10^3/uL (4.0-11.0) Red Blood Count 3.31 x10^6/uL (4.30-5.70) Hemoglobin 11.2 g/dL (13.0-17.5) Hematocrit 33.8 % (39.0-53.0) Mean Corpuscular Volume 102 fL (79-100) Mean Corpuscular Hemoglobin 34 pg (25-35) Mean Corpuscular Hemoglobin Concent 33 g/dL (31-37) Red Cell Distribution Width 15.5 % (11.5-14.5) Platelet Count 128 x10^3/uL (140-400) Neutrophils (%) (Auto) 77 % (31-73) Lymphocytes (%) (Auto) 10 % (24-48) Monocytes (%) (Auto) 10 % (0-9) Eosinophils (%) (Auto) 3 % (0-3) Basophils (%) (Auto) 1 % (0-3) Neutrophils # (Auto) 7.0 x10^3/uL (1.8-7.7) Lymphocytes # (Auto) 0.9 x10^3/uL (1.0-4.8) Monocytes # (Auto) 0.9 x10^3/uL (0.0-1.1) Eosinophils # (Auto) 0.2 x10^3/uL (0.0-0.7) Basophils # (Auto) 0.1 x10^3/uL (0.0-0.2) Sodium Level 140 mmol/L (136-145) Potassium Level 4.0 mmol/L (3.5-5.1) Chloride Level 104 mmol/L (98-107) Carbon Dioxide Level 26 mmol/L (21-32) Anion Gap 10 (6-14) Blood Urea Nitrogen 61 mg/dL (8-26) Creatinine 3.8 mg/dL (0.7-1.3) Estimated GFR (Cockcroft-Gault) 15.8 BUN/Creatinine Ratio 16 (6-20) Glucose Level 103 mg/dL (70-99) Calcium Level 8.3 mg/dL (8.5-10.1) Total Bilirubin 0.5 mg/dL (0.2-1.0) Aspartate Amino Transf (AST/SGOT) 18 U/L (15-37) Alanine Aminotransferase (ALT/SGPT) 30 U/L (16-63) Alkaline Phosphatase 88 U/L (46-116) Total Protein 6.5 g/dL (6.4-8.2) Albumin 2.9 g/dL (3.4-5.0) Albumin/Globulin Ratio 0.8 (1.0-1.7) Glucose (Fingerstick) 97 mg/dL (70-99) Laboratory Tests Test 07/07/21 12:02 07/07/21 16:33 07/07/21 20:37 07/08/21 05:55 Glucose (Fingerstick) 132 mg/dL (70-99) 200 mg/dL (70-99) 162 mg/dL (70-99) White Blood Count 9.0 x10^3/uL (4.0-11.0) Red Blood Count 3.31 x10^6/uL (4.30-5.70) Hemoglobin 11.2 g/dL (13.0-17.5) Hematocrit 33.8 % (39.0-53.0) Mean Corpuscular Volume 102 fL (79-100) Mean Corpuscular Hemoglobin 34 pg (25-35) Mean Corpuscular Hemoglobin Concent 33 g/dL (31-37) Red Cell Distribution Width 15.5 % (11.5-14.5) Platelet Count 128 x10^3/uL (140-400) Neutrophils (%) (Auto) 77 % (31-73) Lymphocytes (%) (Auto) 10 % (24-48) Monocytes (%) (Auto) 10 % (0-9) Eosinophils (%) (Auto) 3 % (0-3) Basophils (%) (Auto) 1 % (0-3) Neutrophils # (Auto) 7.0 x10^3/uL (1.8-7.7) Lymphocytes # (Auto) 0.9 x10^3/uL (1.0-4.8) Monocytes # (Auto) 0.9 x10^3/uL (0.0-1.1) Eosinophils # (Auto) 0.2 x10^3/uL (0.0-0.7) Basophils # (Auto) 0.1 x10^3/uL (0.0-0.2) Sodium Level 140 mmol/L (136-145) Potassium Level 4.0 mmol/L (3.5-5.1) Chloride Level 104 mmol/L (98-107) Carbon Dioxide Level 26 mmol/L (21-32) Anion Gap 10 (6-14) Blood Urea Nitrogen 61 mg/dL (8-26) Creatinine 3.8 mg/dL (0.7-1.3) Estimated GFR (Cockcroft-Gault) 15.8 BUN/Creatinine Ratio 16 (6-20) Glucose Level 103 mg/dL (70-99) Calcium Level 8.3 mg/dL (8.5-10.1) Total Bilirubin 0.5 mg/dL (0.2-1.0) Aspartate Amino Transf (AST/SGOT) 18 U/L (15-37) Alanine Aminotransferase (ALT/SGPT) 30 U/L (16-63) Alkaline Phosphatase 88 U/L (46-116) Total Protein 6.5 g/dL (6.4-8.2) Albumin 2.9 g/dL (3.4-5.0) Albumin/Globulin Ratio 0.8 (1.0-1.7) Test 07/08/21 07:16 Glucose (Fingerstick) 97 mg/dL (70-99) Medications Active Scripts Medications Dose Route/Sig Max Daily Dose Days Date Category Multi Vitamin Daily (Multivitamin) 1 Each Tablet 1 Tab PO DAILY 30 07/06/21 Reported Gabapentin (Gabapentin) 100 Mg Capsule 100 Mg PO DAILY 07/06/21 Reported Carvedilol 25 Mg Tablet 25 Mg PO BIDWMEALS 07/06/21 Reported Amlodipine Besylate 10 Mg Tablet 10 Mg PO DAILY 07/06/21 Reported Allopurinol 300 Mg Tablet 1 Tab PO DAILY 07/06/21 Reported Januvia (Sitagliptin Phosphate) 25 Mg Tablet 25 Mg PO DAILY 07/06/21 Reported Furosemide 40 Mg Tablet 1 Tab PO QODAY 07/06/21 Reported Furosemide 20 Mg Tablet 1 Tab PO QODAY 07/06/21 Reported Isosorbide Mononitrate Er (Isosorbide Mononitrate) 30 Mg Tab.er.24h 20 Mg PO BID 07/06/21 Reported Hydralazine Hcl 50 Mg Tablet 1 Tab PO TID 07/06/21 Reported Aspir 81 (Aspirin) 81 Mg Tablet. 1 Tab PO DAILY 02/26/16 Reported Omeprazole 40 Mg Capsule. 40 Mg PO DAILY 02/26/16 Reported Impression . IMPRESSION: 1. Acute respiratory failure, multifactorial in etiology. I suspect it is mostly secondary to acute diastolic congestive heart failure and volume overload secondary to acute kidney injury 2. Abnormal chest x-ray. 3. Acute diastolic congestive heart failure. 4. Acute kidney injury. 5. Lower extremity edema, most likely secondary to volume overload and congestive heart failue 6. Hypertension. 7. Obesity, suspect obstructive sleep apnea-hypopnea syndrome. 8. Ex-smoker, suspect chronic obstructive pulmonary disease. Plan . Updated 07/08 Patient feels better 6-minute walk Okay to discharge Follow-up in my office in August Discussed with RN Venous Dopplers negative for DVT I spoke with patient clinically he does not have clinical symptoms and signs of AIDEN RECOMMENDATIONS: 1. Titrate FiO2 to keep O2 saturation 90%. 2. Use BiPAP p.r.n. during day, continuously at night. 3. Agree with Lasix changed to IV, as he has generalized edema p.o. Lasix might not be absorbed well. 4. Follow Nephrology consultation. Monitor potassium and creatinine. 5. Follow Cardiology recommendation. 6. Continue antibiotic. 7. Follow up blood cultures. 8. Start bronchodilator. 9. I have discussed obstructive sleep apnea-hypopnea syndrome. The importance of diagnosis and treatment if untreated increase cardiovascular and [employer] morbidity or mortality. I do recommend sleep study as an outpatient. 10. I do recommend pulmonary function test as an outpatient. 11. I will order a lower extremity venous Doppler. 12. Start Lovenox for DVT prophylaxis. 13. Protonix for stress ulcer prophylaxis. 14. Monitor respiratory status very closely. 15. The patient is DNR. MANAV DIAMOND MD Jul 08, 2021 08:17
--- NOTE | 2021-07-08 10:31 | PDOC ---
DATE OF SERVICE DATE: 07/08/21 TIME: 10:31 SUBJECTIVE ROS Sitting up in chair, Denies any SOB at rest Per RN on 11 Lts o2. Pt reports his LE edema ids much better , state he thinks his UOP has been normal, but not recorded. He states his wt has not been checked as he is mostly sitting up in the chair He is not happy about option of dialysis as discussed over the weekend. 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 HEENT: Normocephalic, atraumatic. Anicteric. On o2 11 Lts by NC NECK: Supple, LUNGS: Bilateral crackles present.Non labored HEART: S1, S2. ABDOMEN: Soft, Obese nontender Bowel sounds present. EXTREMITIES: Bilateral lower extremity edema ++, Pt reports significant improvement DERM: Chronic changes of CVI NEUROLOGIC: Alert and oriented x 3, grossly nonfocal No rod, No CVA or SP tenderness . DIAGNOSIS/ASSESSMENT Assessment & Plan Chronic kidney disease stage IV with baseline GFR anywhere from 17-20 depending on fluid status. Current FLuid and E-lyte status does not necessitate emergent need for Dialysis. Patient remains hesitant to commit to the same.. He knows that has been aware of his proximity to needing dialysis, he had a CV. He follows with Dr Jackson Discussed with patient at great length regarding Initiating Dialysis 2/2 Hx of CHF and fluctuating Fluid status . He is refusing currently . He is on low dose PO lasix. RecommeNd trial of IV Lasix (No PIV per RN) .Awaiting cardiolog Recommendations Avoid PICC ; Recommend Central Line for IV (can get Trialysis ) ; If worsening renal function or Resp staus 2/2 Vol Overload will Initiate Dialysis if patient agreeable . Had a long discussion with patient and Daughter Strict I/O;daily standing weight Acute Resp Failure - presented with Shortness of breath, hypoxemia: CxR e airspace infiltrates in the right greater than left bases. There is no pneumothorax or pleural effusion. The heart is mildly enlarged.On O2 by NC . 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 Reports recently (after DC from [facility] a[pprox 1-1/2 months back) he was dced on lasix OPO 80 mg, which was decreased to 40 mg 2/2 worsening renal function and last 2 days prior to this admission he was told to decrease to 20 and 40 mg QOD . No O2 or CPAP use at Home. Patient requesting transfer to [facility] . Dw Dr Sherman HTN: Defer to cardiology to optimize from their standpoint COMMENT/RELEVANT DATA Meds Current Medications Medications (Trade) Dose Ordered Sig/Kory Start Time Stop Time Status Last Admin Dose Admin Acetaminophen (Tylenol) 650 mg PRN Q6HRS PRN 07/07/21 03:00 07/07/21 16:12 650 MG Albuterol/ Ipratropium (Duoneb) 3 ml RTQID 07/07/21 12:00 07/08/21 07:20 3 ML Allopurinol (Zyloprim) 300 mg DAILY 07/06/21 13:00 07/07/21 09:15 300 MG Amlodipine Besylate (Norvasc) 10 mg DAILY 07/06/21 13:00 07/07/21 09:16 10 MG Aspirin (Ecotrin) 81 mg DAILY 07/06/21 13:00 07/07/21 09:16 81 MG Carvedilol (Coreg) 25 mg BIDWMEALS 07/06/21 17:00 07/07/21 16:57 25 MG Daptomycin 600 mg/ Sodium Chloride 50 ml @ 100 mls/hr Q48H 07/07/21 16:00 07/08/21 09:24 DC 07/07/21 17:04 100 MLS/HR Doxycycline Hyclate (Vibra-Tab) 100 mg BID 07/06/21 18:00 07/08/21 09:24 DC 07/07/21 22:29 100 MG Doxycycline Hyclate 100 mg/ Dextrose 100 ml @ 50 mls/hr Q12HR 07/06/21 13:00 07/06/21 16:34 DC Enoxaparin Sodium (Lovenox 30mg Syringe) 30 mg Q24H 07/07/21 10:00 07/07/21 12:08 30 MG Furosemide (Lasix) 80 mg Q6HRS 07/06/21 18:00 07/07/21 12:01 DC 07/07/21 12:06 80 MG Gabapentin (Neurontin) 100 mg HS 07/06/21 21:00 07/07/21 22:30 100 MG Hydralazine HCl (Apresoline) 50 mg TID 07/06/21 14:00 07/07/21 22:30 50 MG Isosorbide Mononitrate (Ismo) 20 mg BID92 07/06/21 14:00 07/07/21 13:54 20 MG Lactobacillus Rhamnosus (Culturelle) 1 cap BID 07/07/21 21:00 07/07/21 22:30 1 CAP Linagliptin (Tradjenta) 5 mg DAILY 07/06/21 13:00 07/07/21 09:15 5 MG Linezolid (Zyvox) 600 mg BID 07/08/21 21:00 Multivitamins (Thera M Plus) 1 tab DAILY 07/07/21 09:00 07/07/21 09:17 1 TAB Pantoprazole Sodium (Protonix) 40 mg DAILYAC 07/08/21 07:30 UNV Piperacillin Sod/ Tazobactam Sod (Zosyn Per Pharmacy) 1 each PRN DAILY PRN 07/06/21 12:15 UNV Lab Laboratory Tests Test 07/07/21 12:02 07/07/21 16:33 07/07/21 20:37 07/08/21 05:55 Glucose (Fingerstick) 132 mg/dL (70-99) 200 mg/dL (70-99) 162 mg/dL (70-99) White Blood Count 9.0 x10^3/uL (4.0-11.0) Red Blood Count 3.31 x10^6/uL (4.30-5.70) Hemoglobin 11.2 g/dL (13.0-17.5) Hematocrit 33.8 % (39.0-53.0) Mean Corpuscular Volume 102 fL (79-100) Mean Corpuscular Hemoglobin 34 pg (25-35) Mean Corpuscular Hemoglobin Concent 33 g/dL (31-37) Red Cell Distribution Width 15.5 % (11.5-14.5) Platelet Count 128 x10^3/uL (140-400) Neutrophils (%) (Auto) 77 % (31-73) Lymphocytes (%) (Auto) 10 % (24-48) Monocytes (%) (Auto) 10 % (0-9) Eosinophils (%) (Auto) 3 % (0-3) Basophils (%) (Auto) 1 % (0-3) Neutrophils # (Auto) 7.0 x10^3/uL (1.8-7.7) Lymphocytes # (Auto) 0.9 x10^3/uL (1.0-4.8) Monocytes # (Auto) 0.9 x10^3/uL (0.0-1.1) Eosinophils # (Auto) 0.2 x10^3/uL (0.0-0.7) Basophils # (Auto) 0.1 x10^3/uL (0.0-0.2) Sodium Level 140 mmol/L (136-145) Potassium Level 4.0 mmol/L (3.5-5.1) Chloride Level 104 mmol/L (98-107) Carbon Dioxide Level 26 mmol/L (21-32) Anion Gap 10 (6-14) Blood Urea Nitrogen 61 mg/dL (8-26) Creatinine 3.8 mg/dL (0.7-1.3) Estimated GFR (Cockcroft-Gault) 15.8 BUN/Creatinine Ratio 16 (6-20) Glucose Level 103 mg/dL (70-99) Calcium Level 8.3 mg/dL (8.5-10.1) Total Bilirubin 0.5 mg/dL (0.2-1.0) Aspartate Amino Transf (AST/SGOT) 18 U/L (15-37) Alanine Aminotransferase (ALT/SGPT) 30 U/L (16-63) Alkaline Phosphatase 88 U/L (46-116) Total Protein 6.5 g/dL (6.4-8.2) Albumin 2.9 g/dL (3.4-5.0) Albumin/Globulin Ratio 0.8 (1.0-1.7) Test 07/08/21 07:16 Glucose (Fingerstick) 97 mg/dL (70-99) Results All relevant outside records, renal labs, imaging studies, telemetry/EKG's were reviewed. Justicifation of Admission Dx: Justifications for Admission: Justification of Admission Dx: N/A MEAGAN JACOBO MD Jul 08, 2021 10:31
[2021-07-08 11:00] VITALS: BP 167/69
--- NOTE | 2021-07-08 11:13 | CARD ---
MR#: [id number] Date of Study: 07/07/2021 Ordering Physician: BRAVO PHILLIPS, Referring Physician: BRAVO PHILLIPS, Tech: Cheryl Valle RDCS APPROVED REPORT EXAM: Two-dimensional and M-mode echocardiogram with Doppler and color Doppler. Other Information Quality : GoodHR: 93bpm Rhythm : NSR INDICATION Congestive Heart Failure 2D DIMENSIONS IVSd1.0 (0.7-1.1cm)Aortic Root(2D)2.8 (2.0-3.7cm) LVDd6.4 (3.9-5.9cm)LVOT Diameter2.5 (1.8-2.4cm) PWd1.0 (0.7-1.1cm)LVDs4.5 (2.5-4.0cm) SV121.0 mlLVEF(%)56.0 (>50%) Aortic Valve AoV Peak Ede.126.6cm/sAoV VTI30.4cm AO Peak GR.6.4mmHgLVOT Peak Ede.76.0cm/s AO Mean GR.5mmHgAVA (VMAX)3.04cm2 Mitral Valve MV E Vfixugjd677.0cm/sMV DECEL FKOX89pv MV A Mcsvlpjg39.8cm/sE/A Ratio1.8 MV A Ekcqzako66sr Tricuspid Valve TR P. Eymbpjfc119fk/sTR Peak Gr.30mmHg LEFT VENTRICLE The left ventricle is normal size. There is normal left ventricular wall thickness. The left ventricu lar systolic function is normal. The ejection fraction is 55 to 60%. There is normal LV segmental wal l motion. No left ventricle thrombus noted on this study. There is no ventricular septal defect visua lized. There is no left ventricular aneurysm. There is no mass noted in the left ventricle. RIGHT VENTRICLE The right ventricle is normal size. There is normal right ventricular wall thickness. The right ventr icular systolic function is normal. ATRIA The left atrium size is normal. The right atrium size is normal. The interatrial septum is intact wit h no evidence for an atrial septal defect or patent foramen ovale as noted on 2-D or Doppler imaging. AORTIC VALVE The aortic valve is normal in structure and function. Doppler and Color Flow revealed no significant aortic regurgitation. There is no significant aortic valvular stenosis. There is no aortic valvular v egetation. MITRAL VALVE The mitral valve is normal in structure and function. There is no evidence of mitral valve prolapse. There is no mitral valve stenosis. Doppler and Color-flow revealed mild mitral regurgitation. TRICUSPID VALVE The tricuspid valve is normal in structure and function. Doppler and Color Flow revealed trace to mil d tricuspid regurgitation. There is no tricuspid valve prolapse or vegetation. There is no tricuspid valve stenosis. PULMONIC VALVE The pulmonary valve is normal in structure and function. Doppler and Color Flow revealed trace pulmon ic valvular regurgitation. There is no pulmonic valvular stenosis. GREAT VESSELS The aortic root is normal in size. The ascending aorta is normal in size. The IVC is normal in size a nd collapses >50% with inspiration. PERICARDIAL EFFUSION There is no pleural effusion. There is no evidence of significant pericardial effusion. Critical Notification Critical Value: No <Conclusion> The left ventricle is normal size. The left ventricular systolic function is normal. The ejection fraction is 55 to 60%. Doppler and Color Flow revealed no significant aortic regurgitation. There is no significant aortic valvular stenosis. Doppler and Color-flow revealed mild mitral regurgitation. Doppler and Color Flow revealed trace to mild tricuspid regurgitation. Signed by : Bravo Phillips MD Electronically Approved : 07/08/2021 11:13:24
[2021-07-08] MEDS: ENOXAPARIN 30 MG/0.3 ML SYRINGE. SQ SCH (11:40)
[2021-07-08] MEDS: LINAGLIPTIN 5 MG TABLET PO SCH (11:41)
[2021-07-08] MEDS: ALLOPURINOL 300 MG TABLET. PO SCH (11:41)
[2021-07-08] MEDS: LACTOBACILLUS RHAMNOSUS GG 1 CAPSULE. PO SCH (11:41)
[2021-07-08] MEDS: ASPIRIN ENTERIC COATED 81 MG TABLET.DR. PO SCH (11:41)
[2021-07-08] MEDS: MULTIVITAMIN with MINERAL TABLET. PO SCH (11:41)
[2021-07-08] MEDS: ISOSORBIDE MONONITRATE 20 MG TABLET PO SCH ×2 (11:42→14:00)
[2021-07-08] MEDS: CARVEDILOL 12.5 MG TABLET. PO SCH (11:42)
[2021-07-08] MEDS: FUROSEMIDE 40 MG TABLET. PO SCH (11:43)
--- NOTE | 2021-07-08 14:20 | PDOC ---
[employer] PROGRESS NOTE Date of Service DOS: DATE: 07/08/21 TIME: 14:17 Chief Complaint Chief Complaint End-stage renal disease (he needs dialysis but is refusing) Chronic renal disease, he states that he has been talking about possibly doing dialysis on him for some time; edema, CHF, anemia, polypharmacy, hypertension, neuropathy, GERD, gout. History of Present Illness History of Present Illness He is on 10L NCO2 with saturations 99%. Cr 3.8. D/w nephrology patient does not want repeat IV access and does not want dialysis currently. He has been transitioned to zyvox for possible pneumonia and 1/4 bottles positive GPC on blood culture. He states his breathing has improved after bipap and lasix 40mg PO. No standing weights or I/O recorded. Notes after his last hospital discharge his eGFR was 19 and his weight was 279 #. He is currently 294# on bed scale. He is insistent on going home, discussed he needs 6 minute walk and likely regardless will need to initiate dialysis in the next month but he does not want to do so now. 07/07/2021 Patient seen and examined Discussed with RN Chart reviewed I spent a lot of time explaining the situation and that he needs dialysis but he continues to refuse I spoke with Dr. Gamez this morning he agrees he needs dialysis I spoke with the patient's daughter Abby Vitals/I&O Vitals/I&O: Vital Signs Date Time Temp Pulse Resp B/P (MAP) Pulse Ox O2 Delivery O2 Flow Rate FiO2 07/08/21 13:06 97 Nasal Cannula 10.0 07/08/21 11:42 66 167/69 07/08/21 11:00 97.8 18 97.8 I & O 07/07/21 07/07/21 07/08/21 14:59 22:59 06:59 Intake Total 400 ml 980 ml 0 ml Output Total 900 ml 1400 ml Balance -500 ml -420 ml 0 ml Physical Exam Physical Exam: GENERAL: Alert, oriented x 3 male sitting upright, in chair, in no acute distress. HEENT: Normocephalic, atraumatic. Anicteric. No thrush. NECK: Supple, no JVD. LUNGS: Bilateral crackles present. HEART: S1, S2. ABDOMEN: Soft, nontender, nondistended. Bowel sounds present. EXTREMITIES: Bilateral lower extremity edema. DERM: Chronic changes. Bruises especially over both upper extremities NEUROLOGIC: Alert and oriented x 3, grossly nonfocal. General: Alert, Other (Mild to moderate distress) Heart: Regular rate Lungs: Crackles Abdomen: Normal bowel sounds, Other (Distended) Extremities: Other (2+ edema) Skin: No significant lesion, Other (Somewhat thin slightly frail) Labs Labs: Laboratory Tests Test 07/07/21 16:33 07/07/21 20:37 07/08/21 05:55 07/08/21 07:16 Glucose (Fingerstick) 200 mg/dL (70-99) 162 mg/dL (70-99) 97 mg/dL (70-99) White Blood Count 9.0 x10^3/uL (4.0-11.0) Red Blood Count 3.31 x10^6/uL (4.30-5.70) Hemoglobin 11.2 g/dL (13.0-17.5) Hematocrit 33.8 % (39.0-53.0) Mean Corpuscular Volume 102 fL (79-100) Mean Corpuscular Hemoglobin 34 pg (25-35) Mean Corpuscular Hemoglobin Concent 33 g/dL (31-37) Red Cell Distribution Width 15.5 % (11.5-14.5) Platelet Count 128 x10^3/uL (140-400) Neutrophils (%) (Auto) 77 % (31-73) Lymphocytes (%) (Auto) 10 % (24-48) Monocytes (%) (Auto) 10 % (0-9) Eosinophils (%) (Auto) 3 % (0-3) Basophils (%) (Auto) 1 % (0-3) Neutrophils # (Auto) 7.0 x10^3/uL (1.8-7.7) Lymphocytes # (Auto) 0.9 x10^3/uL (1.0-4.8) Monocytes # (Auto) 0.9 x10^3/uL (0.0-1.1) Eosinophils # (Auto) 0.2 x10^3/uL (0.0-0.7) Basophils # (Auto) 0.1 x10^3/uL (0.0-0.2) Sodium Level 140 mmol/L (136-145) Potassium Level 4.0 mmol/L (3.5-5.1) Chloride Level 104 mmol/L (98-107) Carbon Dioxide Level 26 mmol/L (21-32) Anion Gap 10 (6-14) Blood Urea Nitrogen 61 mg/dL (8-26) Creatinine 3.8 mg/dL (0.7-1.3) Estimated GFR (Cockcroft-Gault) 15.8 BUN/Creatinine Ratio 16 (6-20) Glucose Level 103 mg/dL (70-99) Calcium Level 8.3 mg/dL (8.5-10.1) Total Bilirubin 0.5 mg/dL (0.2-1.0) Aspartate Amino Transf (AST/SGOT) 18 U/L (15-37) Alanine Aminotransferase (ALT/SGPT) 30 U/L (16-63) Alkaline Phosphatase 88 U/L (46-116) Total Protein 6.5 g/dL (6.4-8.2) Albumin 2.9 g/dL (3.4-5.0) Albumin/Globulin Ratio 0.8 (1.0-1.7) Test 07/08/21 11:36 Glucose (Fingerstick) 106 mg/dL (70-99) Assessment and Plan Assessmemt and Plan Problems Medical Problems: (1) Acute respiratory distress Status: Acute (2) CHF (congestive heart failure) Status: Acute (3) Person under investigation for COVID-19 Status: Acute Comment Review of Relevant I have reviewed the following items shay (where applicable) has been applied. Medications: Current Medications Medications (Trade) Dose Ordered Sig/Kory Route PRN Reason Start Time Stop Time Status Last Admin Dose Admin Lactobacillus Rhamnosus (Culturelle) 1 cap BID PO 07/07/21 21:00 07/08/21 11:41 Daptomycin 600 mg/ Sodium Chloride 50 ml @ 100 mls/hr Q48H IV 07/07/21 16:00 07/08/21 09:24 DC 07/07/21 17:04 Justifications for Admission Other Justification TOYA GREGORY MD Jul 08, 2021 14:20
--- NOTE | 2021-07-08 14:50 | NUR ---
SS following for discharge planning. SS reviewed pt chart and discussed with pt RN. Pt is from home and is currently requiring oxygen at five liters nasal canula. COVID19 negative. Pt on PO Zyvox. Cardiology, Pulmonology, ID, and Nephrology following. Pt requested transfer to [facility] for Cardiology. SS contacted [facility] transfer line, , and spoke with Queenie. SS was notified that there were no open beds available at this time. No need for emergent dialysis at this time. Pt has no home oxygen. PT/OT recommended shelter unit. SS met with pt and discussed. Pt declining shelter unit at this time stating that he will return to home. Pt declining home healthcare as well. Six minute walk ordered. Script received for Walker. SS phoned and faxed script and clinical to [employer], ; fax [phone]. Walker delivered to pt for home. SS will continue to follow for discharge planning. Addendum: 07/08/21 at 1627 by PRIYANK BARNHART SS Script received for home oxygen. SS phoned and faxed script and clinical to [employer], ; fax [phone]. Oxygen tank provided to pt for home.
[2021-07-08 15:00] VITALS: BP 169/74
[2021-07-08] MEDS ORDERED: LINE600T12 PO (16:04)
--- NOTE | 2021-07-08 16:08 | SNU/HH DC ---
DISCHARGE WITH HOME HEALTH DISCHARGE INFORMATION: Discharge Date: Jul 08, 2021 Final Diagnosis: Problems Medical Problems: (1) Acute respiratory distress Status: Acute (2) CHF (congestive heart failure) Status: Acute (3) Person under investigation for COVID-19 Status: Acute Condition on Discharge: Stable CODE STATUS: Code Status: DNR/DNI HOME HEALTH: Face to Face: I certify this patient is under my care and that I, or a nurse practitioner or physician's registered medical assistant working with me, had a face to face encounter that meets the physician face to face encounter requirements with this patient on 07/08/2021. Medical Complications: CHF Longterm For: Assess/Skilled Observatio, Diabetic Care RN For Eval/Treatment: Yes Physical Therapy For: Evalulation/Treatment Occupational Therapy For: Evaluation/Treatment Pt Meets Homebound Status: Fatigue w/ amb. POST DISCHARGE ORDERS: Activity Instructions for Disc: Resume previous activity Weight Bearing Status after Di: Full weight bearing DIET AFTER DISCHARGE: Renal CHECKS AFTER DISCHARGE: Checks after discharge: Check blood press - daily, Check blood sugar, ac/hs FOLLOW-UP: Additional Instructions: [facility] cardiology follow-up [facility] Doctors: Lurdes [address] [place] [address], [address] [place] [address] TREATMENT/EQUIPMENT ORDERS: Adaptive Equipment Issued: Front wheeled walker Discharge Respiratory Equipmen: Oxygen (0 L/min at rest and 6 L/min on exertion) CERTIFICATION STATEMENT: Certification Statement: Certification Statement: Based on the above finding, I certify that this patient is confined to the home and needs intermittent correction care, physical therapy and/or speech therapy, or continues to need occupational therapy.~ This patient is under my care, and I have initiated the establishment of the plan of care.~ This patient will be followed by myself or a community physician who will periodically review the plan of care. Home Meds Active Scripts Linezolid (ZYVOX) 600 Mg Tablet, 600 MG PO BID for pneumonia for 7 Days, #14 TAB Prov:TOYA GREGORY MD 07/08/21 Reported Medications Multivitamin (MULTI VITAMIN DAILY) 1 Each Tablet, 1 TAB PO DAILY for supplement for 30 Days, #30 TAB 0 Refills 07/06/21 Gabapentin (GABAPENTIN ) 100 Mg Capsule, 100 MG PO DAILY for NEUROGENIC PAIN, CAP 07/06/21 Carvedilol (CARVEDILOL) 25 Mg Tablet, 25 MG PO BIDWMEALS for CARDIAC, TAB 07/06/21 Amlodipine Besylate (AMLODIPINE BESYLATE) 10 Mg Tablet, 10 MG PO DAILY for HTN, TAB 07/06/21 Allopurinol (ALLOPURINOL) 300 Mg Tablet, 1 TAB PO DAILY for gout, #30 TAB 5 Refills 07/06/21 Sitagliptin Phosphate (JANUVIA) 25 Mg Tablet, 25 MG PO DAILY for diabetes, TAB 07/06/21 Furosemide (FUROSEMIDE) 40 Mg Tablet, 1 TAB PO QODAY for CHF, #30 TAB 5 Refills 07/06/21 Furosemide (FUROSEMIDE) 20 Mg Tablet, 1 TAB PO QODAY for CHF, #90 TAB 1 Refill 07/06/21 Isosorbide Mononitrate (ISOSORBIDE MONONITRATE ER) 30 Mg Tab.er.24h, 20 MG PO BID for high blood pressure, TAB.SR 07/06/21 Hydralazine Hcl (HYDRALAZINE HCL) 50 Mg Tablet, 1 TAB PO TID for blood pressure, #90 TAB 5 Refills 07/06/21 Aspirin (ASPIR 81) 81 Mg Tablet.dr, 1 TAB PO DAILY, #90 TAB 1 Refill 02/26/16 Omeprazole (OMEPRAZOLE) 40 Mg Capsule.dr, 40 MG PO DAILY, CAP 02/26/16 Discontinued Reported Medications Magnesium Oxide (MAGNESIUM OXIDE) 400 Mg Tablet, 400 MG PO 02/26/16 Irbesartan (IRBESARTAN) 300 Mg Tablet, 1 TAB PO DAILY, #90 TAB 1 Refill 02/26/16 Sitagliptin Phosphate (JANUVIA) 100 Mg Tablet, 100 MG PO DAILY, TAB 02/26/16 Glipizide (GLIPIZIDE) 10 Mg Tablet, 10 MG PO DAILY, TAB 02/26/16 Amlodipine Besylate (AMLODIPINE BESYLATE) 5 Mg Tablet, 5 MG PO DAILY, TAB 02/26/16 Potassium Chloride (KLOR-CON M20) 20 Meq Tab.er.prt, 20 MEQ PO DAILY, TAB.SR 02/26/16 Furosemide (FUROSEMIDE) 40 Mg Tablet, 40 MG PO DAILY, TAB 02/26/16 Nebivolol Hcl (BYSTOLIC) 10 Mg Tablet, 10 MG PO DAILY, TAB 02/26/16 RIFTOYA CISNEROS MD Jul 08, 2021 16:08
--- NOTE | 2021-07-08 16:16 | PDOC3 ---
Discharge Summary Visit Information Date of Admission: Jul 06, 2021 Date of Discharge: Jul 08, 2021 Admitting Diagnosis: Acute respiratory failure with hypoxia Final Diagnosis Problems Medical Problems: (1) Acute respiratory distress Status: Acute (2) CHF (congestive heart failure) Status: Acute (3) Person under investigation for COVID-19 Status: Acute Brief Hospital Course Allergies Allergies Coded Allergies Type Severity Reaction Last Updated Verified Penicillins Allergy Intermediate 02/26/16 Yes [id number]-[id number]-[id number] Reductase Inhibitor Allergy Intermediate 07/05/21 Yes lisinopril Allergy Intermediate COUGH 07/05/21 Yes naproxen Allergy Intermediate 07/05/21 Yes clindamycin Allergy Mild Diarrhea 07/05/21 Yes Vital Signs Vital Signs Date Time Temp Pulse Resp B/P (MAP) Pulse Ox O2 Delivery O2 Flow Rate FiO2 07/08/21 15:00 98.1 67 18 169/74 (105) 94 Nasal Cannula 4.0 98.1 Lab Results Laboratory Tests Test 07/06/21 21:39 07/07/21 03:50 07/07/21 12:02 07/07/21 16:33 Glucose (Fingerstick) 171 mg/dL (70-99) 132 mg/dL (70-99) 200 mg/dL (70-99) Sodium Level 141 mmol/L (136-145) Potassium Level 4.0 mmol/L (3.5-5.1) Chloride Level 106 mmol/L (98-107) Carbon Dioxide Level 26 mmol/L (21-32) Anion Gap 9 (6-14) Blood Urea Nitrogen 60 mg/dL (8-26) Creatinine 3.8 mg/dL (0.7-1.3) Estimated GFR (Cockcroft-Gault) 15.8 Glucose Level 136 mg/dL (70-99) Calcium Level 8.1 mg/dL (8.5-10.1) Magnesium Level 2.1 mg/dL (1.8-2.4) Test 07/07/21 20:37 07/08/21 05:55 07/08/21 07:16 07/08/21 11:36 Glucose (Fingerstick) 162 mg/dL (70-99) 97 mg/dL (70-99) 106 mg/dL (70-99) White Blood Count 9.0 x10^3/uL (4.0-11.0) Red Blood Count 3.31 x10^6/uL (4.30-5.70) Hemoglobin 11.2 g/dL (13.0-17.5) Hematocrit 33.8 % (39.0-53.0) Mean Corpuscular Volume 102 fL (79-100) Mean Corpuscular Hemoglobin 34 pg (25-35) Mean Corpuscular Hemoglobin Concent 33 g/dL (31-37) Red Cell Distribution Width 15.5 % (11.5-14.5) Platelet Count 128 x10^3/uL (140-400) Neutrophils (%) (Auto) 77 % (31-73) Lymphocytes (%) (Auto) 10 % (24-48) Monocytes (%) (Auto) 10 % (0-9) Eosinophils (%) (Auto) 3 % (0-3) Basophils (%) (Auto) 1 % (0-3) Neutrophils # (Auto) 7.0 x10^3/uL (1.8-7.7) Lymphocytes # (Auto) 0.9 x10^3/uL (1.0-4.8) Monocytes # (Auto) 0.9 x10^3/uL (0.0-1.1) Eosinophils # (Auto) 0.2 x10^3/uL (0.0-0.7) Basophils # (Auto) 0.1 x10^3/uL (0.0-0.2) Sodium Level 140 mmol/L (136-145) Potassium Level 4.0 mmol/L (3.5-5.1) Chloride Level 104 mmol/L (98-107) Carbon Dioxide Level 26 mmol/L (21-32) Anion Gap 10 (6-14) Blood Urea Nitrogen 61 mg/dL (8-26) Creatinine 3.8 mg/dL (0.7-1.3) Estimated GFR (Cockcroft-Gault) 15.8 BUN/Creatinine Ratio 16 (6-20) Glucose Level 103 mg/dL (70-99) Calcium Level 8.3 mg/dL (8.5-10.1) Total Bilirubin 0.5 mg/dL (0.2-1.0) Aspartate Amino Transf (AST/SGOT) 18 U/L (15-37) Alanine Aminotransferase (ALT/SGPT) 30 U/L (16-63) Alkaline Phosphatase 88 U/L (46-116) Total Protein 6.5 g/dL (6.4-8.2) Albumin 2.9 g/dL (3.4-5.0) Albumin/Globulin Ratio 0.8 (1.0-1.7) Laboratory Tests Test 07/07/21 16:33 07/07/21 20:37 07/08/21 05:55 07/08/21 07:16 Glucose (Fingerstick) 200 mg/dL (70-99) 162 mg/dL (70-99) 97 mg/dL (70-99) White Blood Count 9.0 x10^3/uL (4.0-11.0) Red Blood Count 3.31 x10^6/uL (4.30-5.70) Hemoglobin 11.2 g/dL (13.0-17.5) Hematocrit 33.8 % (39.0-53.0) Mean Corpuscular Volume 102 fL (79-100) Mean Corpuscular Hemoglobin 34 pg (25-35) Mean Corpuscular Hemoglobin Concent 33 g/dL (31-37) Red Cell Distribution Width 15.5 % (11.5-14.5) Platelet Count 128 x10^3/uL (140-400) Neutrophils (%) (Auto) 77 % (31-73) Lymphocytes (%) (Auto) 10 % (24-48) Monocytes (%) (Auto) 10 % (0-9) Eosinophils (%) (Auto) 3 % (0-3) Basophils (%) (Auto) 1 % (0-3) Neutrophils # (Auto) 7.0 x10^3/uL (1.8-7.7) Lymphocytes # (Auto) 0.9 x10^3/uL (1.0-4.8) Monocytes # (Auto) 0.9 x10^3/uL (0.0-1.1) Eosinophils # (Auto) 0.2 x10^3/uL (0.0-0.7) Basophils # (Auto) 0.1 x10^3/uL (0.0-0.2) Sodium Level 140 mmol/L (136-145) Potassium Level 4.0 mmol/L (3.5-5.1) Chloride Level 104 mmol/L (98-107) Carbon Dioxide Level 26 mmol/L (21-32) Anion Gap 10 (6-14) Blood Urea Nitrogen 61 mg/dL (8-26) Creatinine 3.8 mg/dL (0.7-1.3) Estimated GFR (Cockcroft-Gault) 15.8 BUN/Creatinine Ratio 16 (6-20) Glucose Level 103 mg/dL (70-99) Calcium Level 8.3 mg/dL (8.5-10.1) Total Bilirubin 0.5 mg/dL (0.2-1.0) Aspartate Amino Transf (AST/SGOT) 18 U/L (15-37) Alanine Aminotransferase (ALT/SGPT) 30 U/L (16-63) Alkaline Phosphatase 88 U/L (46-116) Total Protein 6.5 g/dL (6.4-8.2) Albumin 2.9 g/dL (3.4-5.0) Albumin/Globulin Ratio 0.8 (1.0-1.7) Test 07/08/21 11:36 Glucose (Fingerstick) 106 mg/dL (70-99) Brief Hospital Course End-stage renal disease (he needs dialysis but is refusing) Chronic renal disease, he states that he has been talking about possibly doing dialysis on him for some time; edema, CHF, anemia, polypharmacy, hypertension, neuropathy, GERD, gout. He is on 10L NCO2 with saturations 99%. Cr 3.8. D/w nephrology patient does not want repeat IV access and does not want dialysis currently. He has been transitioned to zyvox for possible pneumonia and 1/4 bottles positive GPC on blood culture. He states his breathing has improved after bipap and lasix 40mg PO. No standing weights or I/O recorded. Notes after his last hospital discharge his eGFR was 19 and his weight was 279 #. He is currently 294# on bed scale. He is insistent on going home, discussed he needs 6 minute walk and likely regardless will need to initiate dialysis in the next month but he does not want to do so now. 07/07: a lot of time explaining the situation and that he needs dialysis but he continues to refuse. Dr. Gamez agrees he needs dialysis Consults: Cardiology, Nephrology, ID, Pulmonology Discharge Information Scheduled Allopurinol (Allopurinol) 300 Mg Tablet, 1 TAB PO DAILY for gout, #30 Ref 5 (Reported) Entered as Reported by: GUSTAVO CHAMPAGNE on 07/06/21820 Last Taken: Unknown Dose on 07/05/21 Last Action: Continued on 07/06/21 12 12 by NIAL CASTLE Amlodipine Besylate (Amlodipine Besylate) 10 Mg Tablet, 10 MG PO DAILY for HTN, (Reported) Entered as Reported by: GUSTAVO CHAMPAGNE on 07/06/21820 Last Taken: Unknown Dose on 07/05/21 Last Action: Continued on 07/06/211211 by NIAL CASTLE Aspirin (Aspir 81) 81 Mg Tablet., 1 TAB PO DAILY, #90 Ref 1 (Reported) Entered as Reported by: DEANA CHURCH on 02/26/16923 Last Action: Continued on 07/06/211211 by NIAL CASTLE Carvedilol (Carvedilol) 25 Mg Tablet, 25 MG PO BIDWMEALS for CARDIAC, (Reported) Entered as Reported by: GUSTAVO CHAMPAGNE on 07/06/21820 Last Taken: Unknown Dose on 07/05/21 Last Action: Converted on 07/06/211211 by NIAL CASTLE Furosemide (Furosemide) 20 Mg Tablet, 1 TAB PO QODAY for CHF, #90 Ref 1 (Reported) Entered as Reported by: GUSTAVO CHAMPAGNE on 07/06/21820 Last Taken: Unknown Dose on 07/05/21 Last Action: Continued on 07/06/211211 by NIAL CASTLE Furosemide (Furosemide) 40 Mg Tablet, 1 TAB PO QODAY for CHF, #30 Ref 5 (Reported) Entered as Reported by: GUSTAVO CHAMPAGNE on 07/06/21820 Last Taken: Unknown Dose on 07/05/21 Last Action: Continued on 07/06/211211 by NIAL CASTLE Gabapentin (Gabapentin ) 100 Mg Capsule, 100 MG PO DAILY for NEUROGENIC PAIN, (Reported) Entered as Reported by: GUSTAVO CHAMPAGNE on 07/06/21820 Last Taken: Unknown Dose on 07/05/21 Last Action: Continued on 07/06/211211 by NIAL CASTLE Hydralazine Hcl (Hydralazine Hcl) 50 Mg Tablet, 1 TAB PO TID for blood pressure, #90 Ref 5 (Reported) Entered as Reported by: GUSTAVO CHAMPAGNE on 07/06/21820 Last Taken: Unknown Dose on 07/05/21 Last Action: Continued on 07/06/211211 by NIAJesus NICK Isosorbide Mononitrate (Isosorbide Mononitrate Er) 30 Mg Tab.er.24h, 20 MG PO BID for high blood pressure, (Reported) Entered as Reported by: GUSTAVO CHAMPAGNE on 07/06/21820 Last Taken: Unknown Dose on 07/05/21 Last Action: Continued on 07/06/211211 by RENE NICK Linezolid (Zyvox) 600 Mg Tablet, 600 MG PO BID for pneumonia for 7 Days, #14 Prescribed by: TOYA GREGORY MD on 07/08/21 1604 Multivitamin (Multi Vitamin Daily) 1 Each Tablet, 1 TAB PO DAILY for supplement for 30 Days, #30 Ref 0 (Reported) Entered as Reported by: GUSTAVO CHAMPAGNE on 07/06/21820 Last Taken: Unknown Dose on 07/05/21 Last Action: Converted on 07/06/211211 by RENE NICK Omeprazole (Omeprazole) 40 Mg Capsule.dr, 40 MG PO DAILY, (Reported) Entered as Reported by: DEANA CHURCH on 02/26/16923 Last Action: Converted on 07/06/211211 by RENE NICK Sitagliptin Phosphate (Januvia) 25 Mg Tablet, 25 MG PO DAILY for diabetes, (Reported) Entered as Reported by: GUSTAVO CHAMPAGNE on 07/06/21820 Last Taken: Unknown Dose on 07/05/21 Last Action: Converted on 07/06/211211 by RENE NICK Discontinued Medications Amlodipine Besylate (Amlodipine Besylate) 5 Mg Tablet, 5 MG PO DAILY, (Reported) Entered as Reported by: DEANA CHURCH on 02/26/16923 Last Action: Discontinued on 07/06/21820 by GUSTAVO CHAMPAGNE Furosemide (Furosemide) 40 Mg Tablet, 40 MG PO DAILY, (Reported) Entered as Reported by: DEANA CHURCH on 02/26/16923 Last Action: Discontinued on 07/06/21820 by GUSTAVO CHAMPAGNE Glipizide (Glipizide) 10 Mg Tablet, 10 MG PO DAILY, (Reported) Entered as Reported by: DEANA CHURCH on 02/26/16923 Last Action: Discontinued on 07/06/21820 by GUSTAVO CHAMPAGNE Irbesartan (Irbesartan) 300 Mg Tablet, 1 TAB PO DAILY, #90 Ref 1 (Reported) Entered as Reported by: DEANA CHURCH on 02/26/16923 Last Action: Discontinued on 07/06/21820 by GUSTAVO CHAMPAGNE Magnesium Oxide (Magnesium Oxide) 400 Mg Tablet, 400 MG PO, (Reported) Entered as Reported by: DEANA CHURCH on 02/26/16923 Last Action: Discontinued on 07/06/21820 by GUSTAVO CHAMPAGNE Nebivolol Hcl (Bystolic) 10 Mg Tablet, 10 MG PO DAILY, (Reported) Entered as Reported by: DEANA CHURCH on 02/26/16923 Last Action: Discontinued on 07/06/21820 by GUSTAVO CHAMPAGNE Potassium Chloride (Klor-Con M20) 20 Meq Tab.er.prt, 20 MEQ PO DAILY, (Reported) Entered as Reported by: DEANA CHURCH on 02/26/16923 Last Action: Discontinued on 07/06/21820 by GUSTAVO CHAMPAGNE Sitagliptin Phosphate (Januvia) 100 Mg Tablet, 100 MG PO DAILY, (Reported) Entered as Reported by: DEANA CHURCH on 02/26/16923 Last Action: Discontinued on 07/06/21820 by GUSTAVO CHAMPAGNE Justicifation of Admission Dx: Justifications for Admission: Justification of Admission Dx: N/A TOYA GREGORY MD Jul 08, 2021 16:16
--- NOTE | 2021-07-08 17:15 | NUR ---
DISCHARGED PATIENT HOME. HEART MONITOR REMOVED. ESCORTED PATIENT OFF UNIT PER WHEELCHAIR INTO A PRIVATE VEHICLE.
[2021-07-08] MEDS ORDERED: LINEZOLID 600 MG TABLET PO SCH (21:00)
== END 2021-07-08 17:15 | disposition home or self-care (01) | DRG 291 ==
LOC: ER 23:25 → 6 SOUTH 07-06 01:47
PROVIDERS: ADMIT Internal Medicine; ATTEND Internal Medicine
PROC: 5A09357 Assistance with Respiratory Ventilation, Less than 24 Consecutive Hours, Continuous Positive Airway Pressure (ICD-10-PCS; principal; 2021-07-06)
PROC: 5A0935A Assistance with Respiratory Ventilation, Less than 24 Consecutive Hours, High Flow/Velocity Cannula (ICD-10-PCS; 2021-07-06)
PROC: 5A09357 Assistance with Respiratory Ventilation, Less than 24 Consecutive Hours, Continuous Positive Airway Pressure (ICD-10-PCS; 2021-07-07)
PROC: 5A0935A Assistance with Respiratory Ventilation, Less than 24 Consecutive Hours, High Flow/Velocity Cannula (ICD-10-PCS; 2021-07-07)
DX: I13.2 Hypertensive heart and chronic kidney disease with heart failure and with stage 5 chronic kidney disease, or end stage renal disease (principal); I50.33 Acute on chronic diastolic (congestive) heart failure; J96.01 Acute respiratory failure with hypoxia; N18.6 End stage renal disease; J18.9 Pneumonia, unspecified organism; N17.9 Acute kidney failure, unspecified; Z66 Do not resuscitate; Z20.822 Contact with and (suspected) exposure to COVID-19; E11.22 Type 2 diabetes mellitus with diabetic chronic kidney disease; E66.09 Other obesity due to excess calories; E11.40 Type 2 diabetes mellitus with diabetic neuropathy, unspecified; K21.9 Gastro-esophageal reflux disease without esophagitis; Z80.51 Family history of malignant neoplasm of kidney; Z82.49 Family history of ischemic heart disease and other diseases of the circulatory system; Z83.3 Family history of diabetes mellitus; Z87.891 Personal history of nicotine dependence; Z88.0 Allergy status to penicillin; Z88.8 Allergy status to other drugs, medicaments and biological substances; Z68.39 Body mass index [BMI] 39.0-39.9, adult
CPT/HCPCS: 36415; 36600; 71045; 80048; 80053; 82805; 82962; 83605; 83735; 83880; 84484; 85025; 87040; 87205; 87426; 93005; 93306; 93970; 94618; 94640; 94660; 94760; 96374; J0878; J1650; J1940; U0003; U0005; 97530-GP; 97535-GO; 99285-25; G0378

== ENCOUNTER 2021-07-11 01:41 | Inpatient (IN) | payer MEDICARE ==
[2021-07-11] VITALS (23 sets, daily range): BP systolic 85–148; BP diastolic 46–73
[~2021-07-11] VITALS: Ht 182.9 cm; Wt 129.7 kg
[~2021-07-11 01:41] MED LIST changes: +ALLO300T PO; +AMLO-187 PO; +CARV25TA2 PO; +FURO20TA3 PO; +GABA-585 PO; +HYDR-2869 PO; +ISOS30TA68 PO; +LINE600T12 PO; +MAGN400T48 PO; -MAGN400T5 PO; +MULT-245 PO; +SITA25TA PO
[2021-07-11 02:14] LABS: BASO # 0.1 x10^3/uL (0.0-0.2); BASO % 1 % (0-3); EOS # 0.4 x10^3/uL (0.0-0.7); EOS % 3 % (0-3); HEMATOCRIT 38.8 % (39.0-53.0); LYMPH # 2.9 x10^3/uL (1.0-4.8); LYMPH % 19 % (24-48); MEAN CORPUSCULAR HEMOGLOBIN 33 pg (25-35); MEAN CORPUSCULAR HGB CONC 31 g/dL (31-37); MEAN CORPUSCULAR VOLUME 107 fL (79-100); MONO # 1.4 x10^3/uL (0.0-1.1); MONO % 9 % (0-9); NEUT # 10.5 x10^3/uL (1.8-7.7); NEUT % 69 % (31-73); PLATELET COUNT 186 x10^3/uL (140-400); RED BLOOD COUNT 3.63 x10^6/uL (4.30-5.70); RED CELL DISTRIBUTION WIDTH 15.6 % (11.5-14.5); WHITE BLOOD COUNT 15.4 x10^3/uL (4.0-11.0)
[2021-07-11] MEDS ORDERED: VANCOMYCIN 2 GM in IV NORMAL SALINE 500ML BAG 500 ML IV ONE (02:15)
[2021-07-11] MEDS ORDERED: MORPHINE SULFATE 2 MG/ML INJ. IV PRN (02:15)
[2021-07-11] MEDS ORDERED: MORPHINE SULFATE 4 MG/ML INJ. IV PRN (02:15)
[2021-07-11] MEDS ORDERED: fentaNYL PF VIAL 100 MCG/2 ML VIAL IV PRN ×2 (02:15)
[2021-07-11] MEDS ORDERED: CEFEPIME HCL IV Push 1 GM VIAL. IVP ONE (02:15)
[2021-07-11 02:23] LABS: MAGNESIUM 2.7 mg/dL (1.8-2.4); PHOSPHORUS 6.8 mg/dL (2.6-4.7)
--- NOTE | 2021-07-11 02:23 | RAD ---
EXAM: AP View of the chest DATE: 07/11/2021 1:55 AM INDICATION: Reason: POST CODE;ET/OG PLACEMENT / Spl. Instructions: / History: COMPARISON: 07/06/2021 02/04/2021 FINDINGS: ET tube tip terminates approximately 5 cm above the tony. Enteric tube tip projects over the expect ed body of the stomach. Mild cardiomegaly. Aorta is tortuous. Bilateral parenchymal airspace opacities are seen, progressed compared to 07/06/21 particularly in the right upper lung. No pleural effusion or pneumothorax. IMPRESSION: 1. Support lines and tubes as above. 2. Bilateral parenchymal airspace opacities significantly progressed compared to 07/06/2021, particul shanti in the right upper lung. Electronically signed by: Randolph Cornell MD (07/11/2021 2:21 AM) [facility]A
[2021-07-11] MEDS: PROPOFOL 100 ML IV PRN ×5 (02:24→23:40)
[2021-07-11 02:25] LABS: PROTHROMBIN TIME PATIENT 14.5 SEC (11.7-14.0)
[2021-07-11 02:27] LABS: ALBUMIN 2.7 g/dL (3.4-5.0); ALBUMIN/GLOBULIN RATIO 0.7 (1.0-1.7); CALCIUM 9.3 mg/dL (8.5-10.1); CREATININE 3.7 mg/dL (0.7-1.3); GFR 16.3; TOTAL BILIRUBIN 0.4 mg/dL (0.2-1.0); TOTAL PROTEIN 6.7 g/dL (6.4-8.2)
[2021-07-11 02:30] LABS: POTASSIUM 6.7 mmol/L (3.5-5.1)
[2021-07-11] MEDS ORDERED: SODIUM POLYSTYRENE SULFON/SORB 15 GM/60 ML ORAL.SUSP. NG ONE (02:45)
[2021-07-11] MEDS ORDERED: INSULIN REGULAR 100 UNIT/ML 3ML VIAL. IV ONE (02:45)
[2021-07-11] MEDS ORDERED: FUROSEMIDE 40 MG/4 ML VIAL. IVP ONE (02:45)
[2021-07-11] MEDS ORDERED: SODIUM BICARB ADULT 8.4% 50 MEQ/50 ML DISP.SYRIN. IV ONE (02:45)
[2021-07-11] MEDS ORDERED: CALCIUM GLUCONATE 1,000 MG/10 ML VIAL. IVP ONE (02:45)
[2021-07-11] MEDS ORDERED: ALBUTEROL SULFATE 2.5 MG/3 ML NEBU. NEB ONE (02:45)
[2021-07-11 03:17] LABS: BASE EXCESS ABG -10 mmol/L (-3-3); HCO3 ABG 20 mmol/L (21-28); PO2 ABG 108 mmHg (65-108); SAT O2 ABG 96 % (92-99)
[2021-07-11 03:18] LABS: FIO2 ABG 100; PCO2 ABG 63 mmHg (35-46)
[2021-07-11] MEDS ORDERED: NOREPINEPHRINE VIAL 8 MG in IV DEXTROSE 5% 250 ML IV ONE (03:30)
--- NOTE | 2021-07-11 04:26 | PHYS DOC ---
Past Medical History Past Surgical History: Other Additional Past Surgical Histo: POOR HISTORIAN Smoking Status: Former Smoker Alcohol Use: Rarely General Adult EDM: Chief Complaint: CPR/FULL ARREST HPI: HPI: Patient is a 70 year old male with history of CHF, recently discharged on 10 LPM O2, ESRD, recent hospitalization with pneumonia and GPC bacteremia who presents with EMS after [id number] cardiac arrest. He was alert and oriented at the scene initially, and was in his track. Initial O2 sats were in the 80s. As they were working to get him out of the truck he did have a cardiac arrest. Initial rhythm PEA. Prehospital received BLS, no meds were given. Per chart review several providers attempted to convince him to start dialysis during his admission, but he stated that he was "not ready to." Discussion with family (2 daughters): Patient signed DNR paperwork during his last admission. They agree that he would not want repeat CPR should he have another cardiac arrest. They do want to treat him aggressively medically. They state that during his past admission, he was hesitant to start dialysis, but did not completely rule it out as a possibility. Review of Systems: Review of Systems: No ROS given cardiac arrest Heart Score: C/O Chest Pain: N/A Risk Factors: Risk Factors: DM, Current or recent (<one month) smoker, HTN, HLP, family history of CAD, obesity. Risk Scores: Score 0 - 3: 2.5% MACE over next 6 weeks - Discharge Home Score 4 - 6: 20.3% MACE over next 6 weeks - Admit for Clinical Observation Score 7 - 10: 72.7% MACE over next 6 weeks - Early Invasive Strategies Current Medications: Current Medications Medications (Trade) Dose Ordered Sig/Kory Start Time Stop Time Status Last Admin Dose Admin Albuterol Sulfate (Ventolin Neb Soln) 20 mg 1X ONCE 07/11/21 02:45 07/11/21 02:46 DC 07/11/21 02:45 20 MG Calcium Gluconate (Calcium Gluconate) 1,000 mg 1X ONCE 07/11/21 02:45 07/11/21 02:46 DC 07/11/21 02:51 1,000 MG Cefepime HCl (Maxipime) 1 gm 1X ONCE 07/11/21 02:15 07/11/21 02:16 DC 07/11/21 03:20 1 GM Chlorhexidine Gluconate (Peridex) 15 ml BID 07/11/21 09:00 Fentanyl Citrate (Fentanyl 2ml Vial) 50 mcg PRN Q1HR PRN 07/11/21 02:15 Furosemide (Lasix) 80 mg 1X ONCE 07/11/21 02:45 07/11/21 02:46 DC Insulin Human Regular (HumuLIN R VIAL) 10 unit 1X ONCE 07/11/21 02:45 07/11/21 02:46 DC 07/11/21 03:13 10 UNIT Morphine Sulfate (Morphine Sulfate) 4 mg PRN Q1HR PRN 07/11/21 02:15 Norepinephrine Bitartrate 8 mg/ Dextrose 258 ml @ 24.962 mls/ hr 1X ONCE 07/11/21 03:30 07/11/21 13:50 07/11/21 03:25 24.962 MLS/HR Propofol 100 ml @ 4.002 mls/ hr CONT PRN 07/11/21 02:15 07/11/21 02:24 4.002 MLS/HR Sodium Polystyrene Sulfonate (Kayexalate) 30 gm 1X ONCE 07/11/21 02:45 07/11/21 02:46 DC Sodium Bicarbonate (Sodium Bicarb Adult 8.4% Syr) 50 meq 1X ONCE 07/11/21 02:45 07/11/21 02:46 DC 07/11/21 02:55 50 MEQ Vancomycin HCl 2 gm/Sodium Chloride 500 ml @ 250 mls/hr 1X ONCE 07/11/21 02:15 07/11/21 04:14 07/11/21 03:34 250 MLS/HR Allergies: Allergies: Allergies Coded Allergies Type Severity Reaction Last Updated Verified Penicillins Allergy Intermediate 02/26/16 Yes [id number] Reductase Inhibitor Allergy Intermediate 07/05/21 Yes lisinopril Allergy Intermediate COUGH 07/05/21 Yes naproxen Allergy Intermediate 07/05/21 Yes clindamycin Allergy Mild Diarrhea 07/05/21 Yes Physical Exam: PE: Constitutional: No movement, receiving BVM ventilation. Bleeding from nostrils and mouth. HENT: Normocephalic, atraumatic Eyes: Pupils 4 mm, equal, reactive. Cardiovascular: Initially a systolic Lungs & Thorax: Bilateral breath sounds clear to auscultation [] Abdomen: Round, protuberant abdomen with bruising present. [] Skin: Warm, dry, no erythema, scattered bruises on arms, abdomen.. [] Extremities: No tenderness, no cyanosis, no clubbing Neurologic: GCS 3. Initially with cough and gag reflex. Occasional myoclonic jerks. No purposeful movements of the extremities. Current Patient Data: Labs: Laboratory Tests Test 07/11/21 01:50 07/11/21 02:11 White Blood Count 15.4 x10^3/uL (4.0-11.0) H Red Blood Count 3.63 x10^6/uL (4.30-5.70) L Hemoglobin 12.0 g/dL (13.0-17.5) L Hematocrit 38.8 % (39.0-53.0) L Mean Corpuscular Volume 107 fL (79-100) H Mean Corpuscular Hemoglobin 33 pg (25-35) Mean Corpuscular Hemoglobin Concent 31 g/dL (31-37) Red Cell Distribution Width 15.6 % (11.5-14.5) H Platelet Count 186 x10^3/uL (140-400) Neutrophils (%) (Auto) 69 % (31-73) Lymphocytes (%) (Auto) 19 % (24-48) L Monocytes (%) (Auto) 9 % (0-9) Eosinophils (%) (Auto) 3 % (0-3) Basophils (%) (Auto) 1 % (0-3) Neutrophils # (Auto) 10.5 x10^3/uL (1.8-7.7) H Lymphocytes # (Auto) 2.9 x10^3/uL (1.0-4.8) Monocytes # (Auto) 1.4 x10^3/uL (0.0-1.1) H Eosinophils # (Auto) 0.4 x10^3/uL (0.0-0.7) Basophils # (Auto) 0.1 x10^3/uL (0.0-0.2) Platelet Estimate Pending Prothrombin Time 14.5 SEC (11.7-14.0) H Prothrombin Time INR 1.1 (0.8-1.1) Activated Partial Thromboplast Time 42 SEC (24-38) H Sodium Level 138 mmol/L (136-145) Potassium Level 6.7 mmol/L (3.5-5.1) *H Chloride Level 104 mmol/L (98-107) Carbon Dioxide Level 23 mmol/L (21-32) Anion Gap 11 (6-14) Blood Urea Nitrogen 58 mg/dL (8-26) H Creatinine 3.7 mg/dL (0.7-1.3) H Estimated GFR (Cockcroft-Gault) 16.3 BUN/Creatinine Ratio 16 (6-20) Glucose Level 352 mg/dL (70-99) H Lactic Acid Level 8.1 mmol/L (0.4-2.0) *H Calcium Level 9.3 mg/dL (8.5-10.1) Phosphorus Level 6.8 mg/dL (2.6-4.7) H Magnesium Level 2.7 mg/dL (1.8-2.4) H Total Bilirubin 0.4 mg/dL (0.2-1.0) Aspartate Amino Transferase (AST) 31 U/L (15-37) Alanine Aminotransferase (ALT) 34 U/L (16-63) Alkaline Phosphatase 101 U/L (46-116) Troponin I Quantitative 0.041 ng/mL (0.000-0.055) CY-Rwp-N-Type Natriuretic Peptide 58677 pg/mL (0-124) H Total Protein 6.7 g/dL (6.4-8.2) Albumin 2.7 g/dL (3.4-5.0) L Albumin/Globulin Ratio 0.7 (1.0-1.7) L O2 Saturation 96 % (92-99) Arterial Blood pH 7.12 (7.35-7.45) *L Arterial Blood pCO2 at Patient Temp 63 mmHg (35-46) *H Arterial Blood pO2 at Patient Temp 108 mmHg (65-108) Arterial Blood HCO3 20 mmol/L (21-28) L Arterial Blood Base Excess -10 mmol/L (-3-3) L FiO2 100 Laboratory Tests 07/11/21 01:50 Laboratory Tests 07/11/21 01:50 Vital Signs: Vital Signs Date Time Temp Pulse Resp B/P (MAP) Pulse Ox O2 Delivery O2 Flow Rate FiO2 07/11/21 03:50 60 28 122/62 (82) 92 Ventilator 20.0 EKG: EKG: Post ROSC EKG. Regular rhythm, no obvious P waves. IVCD, nonspecific. Normal axis. No STEMI. [] Radiology/Procedures: Radiology/Procedures: [] Impression: [facility] [id number] [place] [address] IMAGING REPORT Signed PATIENT: JOSELO KEMP CACCOUNT: [id number] : 1950 LOCATION: ER AGE: 70 SEX: M EXAM STATUS: REG ER ORD. PHYSICIAN: [place] MD REASON: POST CODE;ET/OG PLACEMENT PROCEDURE: CHEST AP ONLY EXAM: AP View of the chest DATE: 07/11/2021 1:55 AM INDICATION: Reason: POST CODE;ET/OG PLACEMENT / Spl. Instructions: / History: COMPARISON: 07/06/2021 02/04/2021 FINDINGS: ET tube tip terminates approximately 5 cm above the tony. Enteric tube tip projects over the expected body of the stomach. Mild cardiomegaly. Aorta is tortuous. Bilateral parenchymal airspace opacities are seen, progressed compared to 07/06/21 particularly in the right upper lung. No pleural effusion or pneumothorax. IMPRESSION: 1. Support lines and tubes as above. 2. Bilateral parenchymal airspace opacities significantly progressed compared to 07/06/2021, particularly in the right upper lung. Electronically signed by: Ranodlph Munoz MD (07/11/2021 2:21 AM) [facility] DICTATED and SIGNED BY: RANDOLPH MUNOZ MD DATE: 07/11/21 [id number] 0 Course & Med Decision Making: Course & Med Decision Making Pertinent Labs and Imaging studies reviewed. (See chart for details) Patient is 70-year-old male with history of end-stage renal disease but not on HD, CHF, recent hospitalization for respiratory failure and GPC bacteremia secondary to pneumonia who presents with out of hospital cardiac arrest. Initial rhythm was PEA. Received BLS prehospital. Initial rhythm and the ED was asystole. Received ACLS with calcium, bicarb, several rounds of epinephrine. Intubated with 7.5 ETT Achieved ROSC. No STEMI on postarrest EKG. POCUS showed no pneumothorax, and showed a pericardial effusion without tamponade physiology. Labs show mixed respiratory and metabolic acidosis, pH 7.1, creatinine 3.7, and potassium 6.7. Hyperkalemia treatment ordered with Lasix, Kayexalate, calcium, another round of bicarb, albuterol. Nephrology, Dr. Lee, consulted. Discussed over the phone, and will recheck labs after initial resuscitation. We will hold off on placing dialysis catheter at this time. CXR with evidence of infiltrates versus pulmonary contusion, given his recent admission for GPC bacteremia and pneumonia, was covered broadly with vancomycin and cefepime. Propofol was started, but he became hypotensive. This was held and norepinephrine was then initiated peripherally. Daughters (closest living relatives but not DPOA) state that he will be DNR moving forward, and they would like to be consulted prior to initiating dialysis. Repeat ABG, lactate, and metabolic panel pending. Patient will be admitted to ICU for further management. Critical care time excluding procedures was 120 minutes. Indication: Cardiac arrest Consent: Unable to give consent due to emergent nature. Medications Used: see nursing note Procedure: The patient was placed in the appropriate position. Intubation was performed with S4 glide scope blade. Grade 1 view. 7.5 endotracheal tube. Secured at 22 cm at the teeth. Initial confirmation of placement included bilateral breath sounds, tube fogging, adequate chest rise, adequate pulse oximetry reading. A chest x-ray to verify correct placement of the tube showed appropriate tube position. The patient tolerated the procedure well. Complications: none. Dragon Disclaimer: Dragon Disclaimer: This electronic medical record was generated, in whole or in part, using a voice recognition dictation system. Departure Departure Impression: Primary Impression: Cardiac arrest Additional Impressions: ESRD (end stage renal disease) Heart failure Sepsis with acute hypoxic respiratory failure ARDS (adult respiratory distress syndrome) Hyperkalemia Disposition: ADMITTED INPATIENT Admitting Physician: CORI (Riffel) Condition: CRITICAL Referrals: MARY MCDUFFIE MD (PCP) [place] LAKE MD Jul 11, 2021 04:26
[2021-07-11 04:39] LABS: BILIRUBIN,URINE NEGATIVE (NEG); CLARITY,URINE CLOUDY; COLOR,URINE YELLOW; NITRITE,URINE NEGATIVE (NEG); PH,URINE 5.5 (<5.0-8.0); PROTEIN,URINE >=300 mg/dL (NEG-TRACE)
[2021-07-11 04:43] LABS: % BANDS 5 % (0-9); % BASOS 2 % (0-3); % EOS 3 % (0-5); % LYMPHS 19 % (24-48); % MONOS 9 % (0-10); % SEGS 62 % (35-66)
[2021-07-11 04:44] LABS: PLT ESTIMATE ADEQUATE (ADEQUATE)
[2021-07-11 04:48] LABS: CALCIUM 8.7 mg/dL (8.5-10.1); CREATININE 3.8 mg/dL (0.7-1.3); GFR 15.8; POTASSIUM 4.4 mmol/L (3.5-5.1)
[2021-07-11 04:58] LABS: BACTERIA,URINE FEW /HPF (0-FEW)
[2021-07-11 04:59] LABS: AMORPHOUS SEDIMENT,UR PRESENT /HPF; GRANULAR CASTS,URINE FEW /HPF; HYALINE CASTS, URINE OCCASIONAL /HPF
[2021-07-11 05:00] LABS: SPERM,URINE PRESENT /HPF
[2021-07-11] MEDS ORDERED: MIDAZOLAM HCL/PF 5 MG/5 ML VIAL. ONE (07:37)
--- NOTE | 2021-07-11 07:43 | RAD ---
PQRS Compliance Statement: One or more of the following individualized dose reduction techniques were utilized for this examinat ion: 1. Automated exposure control 2. Adjustment of the mA and/or kV according to patient size 3. Use of iterative reconstruction technique Exam performed: CT chest, abdomen and pelvis without contrast. HISTORY: Respiratory arrest DATE OF SERVICE: 06/24/2021. COMPARISON: CT abdomen and pelvis from 02/26/2016 TECHNIQUE: Contiguous helical acquisitions are obtained through the chest, abdomen and pelvis without IV contrast. Sagittal and coronal reformatted images are obtained and reviewed. FINDINGS: CT chest: Extensive bilateral airspace infiltrates are seen throughout both lungs predominantly occupying major ity of the right upper lobe. There are also diffuse scattered infiltrates in the left lung as well as right middle and lower lobe. Endotracheal tube terminates in the midtrachea. Unopacified neck and in trathoracic great vessels appear grossly normal in course and caliber. Mildly enlarged precarinal lym ph node measures up to 1.2 cm. The heart size is mildly enlarged. No pericardial effusion is seen. Th ere is no gross pleural effusion or pneumothorax. Bones are normal. CT abdomen and pelvis: Unopacified liver, spleen and pancreas are normal. Cholecystectomy. Feeding tube terminates in the st omach. Both adrenal glands and bilateral kidneys are symmetric. Mild left renal cortical atrophy seen . Suggestion of right inferior renal pole cyst. Small and large bowel loops are nondilated and unrema rkable. Urinary bladder is decompressed secondary to Wood's catheter. Prostate gland is mildly enlarged. Mook inal vesicles and rectum appear normal. There are spondylotic changes involving the lumbar spine. IMPRESSION: CT of chest: Extensive diffuse bilateral airspace opacities likely pulmonary infiltrates. Mild cardiomegaly. CT abdomen and pelvis: No acute intra-abdominal or pelvic process is detected. Suggestion of a cyst or cystic mass in the ri ght inferior renal pole. Evaluation with renal ultrasound may be obtained when clinically possible. Electronically signed by: Karen Mcleod MD (07/11/2021 7:41 AM) [id number]
[2021-07-11] MEDS ORDERED: MIDAZOLAM HCL/PF 5 MG/5 ML VIAL. IV ONE (07:45)
[2021-07-11] MEDS ORDERED: MIDAZOLAM 100mg/100ml NS BAG 100 ML IV PRN (07:45)
--- NOTE | 2021-07-11 07:59 | PDOC1 ---
History and Physical Date of Admission Date of Admission DATE: 07/11/21 TIME: 07:40 Identification/Chief Complaint Chief Complaint Out of hospital arrest Source Source: Patient History of Present Illness History of Present Illness Mr Monaco is 70-year-old male with history of end-stage renal disease but not on HD, CHF, recent hospitalization for respiratory failure and pneumonia who presents with out of hospital cardiac arrest. Found by EMS in his truck and noted with initial rhythm PEA, CPR started in the field. Initial rhythm and the ED was asystole. Received ACLS with calcium, bicarb, several rounds of epinephrine. Intubated with 7.5 ETT. Achieved ROSC. No STEMI on postarrest EKG. Hyperkalemia treatment ordered with Lasix, Kayexalate, calcium, another round of bicarb, albuterol. Nephrology, Dr. Lee, consulted. Family noted patient was DNR and that patient was resistant to dialysis. CXR with evidence of infiltrates versus pulmonary contusion, covered broadly with vancomycin and cefepime. Propofol was started, but he became hypotensive. This was held and norepinephrine was then initiated peripherally. WBC 15.4, Hb 12, platelets 186, Lactate 8.1, phosphorus 6.8, magnesium 2.7, NA 138, K6.7, BUN 58, CR 3.7, glucose 352, albumin 2.7, NT proBNP 10,872 ABG 7.1 2/63/108 100% FiO2 Admitted to ICU for further management. Past Medical History Cardiovascular: CHF, HTN Renal/: Acute renal failure Family History Family History: Hypertension Social History ALCOHOL: none Current Problem List Problem List Problems Medical Problems: (1) ARDS (adult respiratory distress syndrome) Status: Acute (2) Cardiac arrest Status: Acute (3) ESRD (end stage renal disease) Status: Acute (4) Heart failure Status: Acute (5) Hyperkalemia Status: Acute (6) Sepsis with acute hypoxic respiratory failure Status: Acute Current Medications Current Medications Current Medications Vancomycin HCl 2 gm/Sodium Chloride 500 ml @ 250 mls/hr 1X ONCE IV Last administered on 07/11/21at 03:34; Start 07/11/21 at 02:15; Stop 07/11/21 at 04:14; Status DC Cefepime HCl (Maxipime) 1 gm 1X ONCE IVP Last administered on 07/11/21at 03:20; Start 07/11/21 at 02:15; Stop 07/11/21 at 02:16; Status DC Fentanyl Citrate 30 ml @ 2.5 mls/hr CONT PRN IV SEE PROTOCOL; Start 07/11/21 at 02:15 Propofol 100 ml @ 4.002 mls/ hr CONT PRN IV PER PROTOCOL Last administered on 07/11/21at 02:24; Start 07/11/21 at 02:15 Fentanyl Citrate (Fentanyl 2ml Vial) 25 mcg PRN Q1HR PRN IV SEE COMMENTS; Start 07/11/21 at 02:15 Fentanyl Citrate (Fentanyl 2ml Vial) 50 mcg PRN Q1HR PRN IV SEE COMMENTS; Start 07/11/21 at 02:15 Chlorhexidine Gluconate (Peridex) 15 ml BID MM ; Start 07/11/21 at 09:00 Morphine Sulfate (Morphine Sulfate) 2 mg PRN Q1HR PRN IV SEE COMMENTS.; Start 07/11/21 at 02:15 Morphine Sulfate (Morphine Sulfate) 4 mg PRN Q1HR PRN IV SEE COMMENTS.; Start 07/11/21 at 02:15 Insulin Human Regular (HumuLIN R VIAL) 10 unit 1X ONCE IV Last administered on 07/11/21at 03:13; Start 07/11/21 at 02:45; Stop 07/11/21 at 02:46; Status DC Furosemide (Lasix) 80 mg 1X ONCE IVP Last administered on 07/11/21at 04:09; Start 07/11/21 at 02:45; Stop 07/11/21 at 02:46; Status DC Calcium Gluconate (Calcium Gluconate) 1,000 mg 1X ONCE IVP Last administered on 07/11/21at 02:51; Start 07/11/21 at 02:45; Stop 07/11/21 at 02:46; Status DC Sodium Bicarbonate (Sodium Bicarb Adult 8.4% Syr) 50 meq 1X ONCE IV Last administered on 07/11/21at 02:55; Start 07/11/21 at 02:45; Stop 07/11/21 at 02:46; Status DC Sodium Polystyrene Sulfonate (Kayexalate) 30 gm 1X ONCE NG Last administered on 07/11/21at 04:49; Start 07/11/21 at 02:45; Stop 07/11/21 at 02:46; Status DC Albuterol Sulfate (Ventolin Neb Soln) 20 mg 1X ONCE NEB Last administered on 07/11/21at 02:45; Start 07/11/21 at 02:45; Stop 07/11/21 at 02:46; Status DC Norepinephrine Bitartrate 8 mg/ Dextrose 258 ml @ 24.962 mls/ hr 1X ONCE IV Last administered on 07/11/21at 03:25; Start 07/11/21 at 03:30; Stop 07/11/21 at 13:50 Midazolam HCl (Versed) 5 mg STK-MED ONCE .ROUTE ; Start 07/11/21 at 07:37; Stop 07/11/21 at 07:38; Status DC Active Scripts Active Zyvox (Linezolid) 600 Mg Tablet 600 Mg PO BID 7 Days Reported Multi Vitamin Daily (Multivitamin) 1 Each Tablet 1 Tab PO DAILY 30 Days Gabapentin (Gabapentin) 100 Mg Capsule 100 Mg PO DAILY Carvedilol 25 Mg Tablet 25 Mg PO BIDWMEALS Amlodipine Besylate 10 Mg Tablet 10 Mg PO DAILY Allopurinol 300 Mg Tablet 1 Tab PO DAILY Januvia (Sitagliptin Phosphate) 25 Mg Tablet 25 Mg PO DAILY Furosemide 40 Mg Tablet 1 Tab PO QODAY Furosemide 20 Mg Tablet 1 Tab PO QODAY Isosorbide Mononitrate Er (Isosorbide Mononitrate) 30 Mg Tab.er.24h 20 Mg PO BID Hydralazine Hcl 50 Mg Tablet 1 Tab PO TID Aspir 81 (Aspirin) 81 Mg Tablet. 1 Tab PO DAILY Omeprazole 40 Mg Capsule. 40 Mg PO DAILY Allergies Allergies: Coded Allergies: Penicillins (Verified Allergy, Intermediate, 02/26/16) Vougnmy-[id number]-Vtg Reductase Inhibitor (Verified Allergy, Intermediate, 07/05/21) lisinopril (Verified Allergy, Intermediate, COUGH, 07/05/21) naproxen (Verified Allergy, Intermediate, 07/05/21) clindamycin (Verified Allergy, Mild, Diarrhea, 07/05/21) ROS Review of System Unable to obtain due to unconcious state Physical Exam General: Other (Sedated, upgoing babinski bilaterally) HEENT: Atraumatic, Mucous membr. moist/pink Lungs: Other (Bibasilar crackles) Heart: S1S2, RRR, no thrills, no rubs, no gallops, no murmurs Abdomen: Normal bowel sounds, Soft, No tenderness, No hepatosplenomegaly, No masses Extremities: Other (Bilateral LE edema) Neuro: Other (moving extremities, posturing with painful stimuli) Psych/Mental Status: Other (Sedated) Vitals Vitals Vital Signs Date Time Temp Pulse Resp B/P (MAP) Pulse Ox O2 Delivery O2 Flow Rate FiO2 07/11/21 05:48 95 Ventilator 07/11/21 04:00 60 21 133/65 (87) 07/11/21 03:50 20.0 07/11/21 01:42 97.3 97.3 Labs Labs Laboratory Tests Test 07/11/21 01:50 07/11/21 02:10 07/11/21 02:11 07/11/21 04:20 White Blood Count 15.4 x10^3/uL (4.0-11.0) Red Blood Count 3.63 x10^6/uL (4.30-5.70) Hemoglobin 12.0 g/dL (13.0-17.5) Hematocrit 38.8 % (39.0-53.0) Mean Corpuscular Volume 107 fL (79-100) Mean Corpuscular Hemoglobin 33 pg (25-35) Mean Corpuscular Hemoglobin Concent 31 g/dL (31-37) Red Cell Distribution Width 15.6 % (11.5-14.5) Platelet Count 186 x10^3/uL (140-400) Neutrophils (%) (Auto) 69 % (31-73) Lymphocytes (%) (Auto) 19 % (24-48) Monocytes (%) (Auto) 9 % (0-9) Eosinophils (%) (Auto) 3 % (0-3) Basophils (%) (Auto) 1 % (0-3) Neutrophils # (Auto) 10.5 x10^3/uL (1.8-7.7) Lymphocytes # (Auto) 2.9 x10^3/uL (1.0-4.8) Monocytes # (Auto) 1.4 x10^3/uL (0.0-1.1) Eosinophils # (Auto) 0.4 x10^3/uL (0.0-0.7) Basophils # (Auto) 0.1 x10^3/uL (0.0-0.2) Segmented Neutrophils % 62 % (35-66) Band Neutrophils % 5 % (0-9) Lymphocytes % 19 % (24-48) Monocytes % 9 % (0-10) Eosinophils % 3 % (0-5) Basophils % 2 % (0-3) Platelet Estimate Adequate (ADEQUATE) Prothrombin Time 14.5 SEC (11.7-14.0) Prothromb Time International Ratio 1.1 (0.8-1.1) Activated Partial Thromboplast Time 42 SEC (24-38) Sodium Level 138 mmol/L (136-145) 139 mmol/L (136-145) Potassium Level 6.7 mmol/L (3.5-5.1) 4.4 mmol/L (3.5-5.1) Chloride Level 104 mmol/L (98-107) 106 mmol/L (98-107) Carbon Dioxide Level 23 mmol/L (21-32) 27 mmol/L (21-32) Anion Gap 11 (6-14) 6 (6-14) Blood Urea Nitrogen 58 mg/dL (8-26) 59 mg/dL (8-26) Creatinine 3.7 mg/dL (0.7-1.3) 3.8 mg/dL (0.7-1.3) Estimated GFR (Cockcroft-Gault) 16.3 15.8 BUN/Creatinine Ratio 16 (6-20) Glucose Level 352 mg/dL (70-99) 169 mg/dL (70-99) Lactic Acid Level 8.1 mmol/L (0.4-2.0) 1.0 mmol/L (0.4-2.0) Calcium Level 9.3 mg/dL (8.5-10.1) 8.7 mg/dL (8.5-10.1) Phosphorus Level 6.8 mg/dL (2.6-4.7) Magnesium Level 2.7 mg/dL (1.8-2.4) Total Bilirubin 0.4 mg/dL (0.2-1.0) Aspartate Amino Transf (AST/SGOT) 31 U/L (15-37) Alanine Aminotransferase (ALT/SGPT) 34 U/L (16-63) Alkaline Phosphatase 101 U/L (46-116) Troponin I Quantitative 0.041 ng/mL (0.000-0.055) SL-Bvb-U-Type Natriuretic Peptide 23593 pg/mL (0-124) Total Protein 6.7 g/dL (6.4-8.2) Albumin 2.7 g/dL (3.4-5.0) Albumin/Globulin Ratio 0.7 (1.0-1.7) O2 Saturation 93 % (92-99) 96 % (92-99) Arterial Blood pH 7.25 (7.35-7.45) 7.12 (7.35-7.45) Arterial Blood pCO2 at Patient Temp 55 mmHg (35-46) 63 mmHg (35-46) Arterial Blood pO2 at Patient Temp 74 mmHg (65-108) 108 mmHg (65-108) Arterial Blood HCO3 24 mmol/L (21-28) 20 mmol/L (21-28) Arterial Blood Base Excess -4 mmol/L (-3-3) -10 mmol/L (-3-3) Oxyhemoglobin 92.5 % Methemoglobin 0.3 % (0.0-1.9) Carbon Monoxide, Quantitative 0.1 % (0.0-1.9) FiO2 100 100 Test 07/11/21 04:31 Urine Collection Type Unknown Urine Color Yellow Urine Clarity Cloudy Urine pH 5.5 (<5.0-8.0) Urine Specific [place] 1.015 (1.000-1.030) Urine Protein >=300 mg/dL (NEG-TRACE) Urine Glucose (UA) 100 mg/dL (NEG) Urine Ketones (Stick) Negative mg/dL (NEG) Urine Blood Trace (NEG) Urine Nitrite Negative (NEG) Urine Bilirubin Negative (NEG) Urine Urobilinogen Dipstick 1.0 mg/dL (0.2 mg/dL) Urine Leukocyte Esterase Negative (NEG) Urine RBC 11-20 /HPF (0-2) Urine WBC 11-20 /HPF (0-4) Urine Squamous Epithelial Cells Few /LPF Urine Transitional Epithelial Cells Occ /LPF Urine Amorphous Sediment Present /HPF Urine Bacteria Few /HPF (0-FEW) Urine Hyaline Casts Occasional /HPF Urine Granular Casts Few /HPF Urine Mucus Mod /LPF Urine Sperm Present /HPF Laboratory Tests Test 07/11/21 01:50 07/11/21 02:10 07/11/21 02:11 07/11/21 04:20 White Blood Count 15.4 x10^3/uL (4.0-11.0) Red Blood Count 3.63 x10^6/uL (4.30-5.70) Hemoglobin 12.0 g/dL (13.0-17.5) Hematocrit 38.8 % (39.0-53.0) Mean Corpuscular Volume 107 fL (79-100) Mean Corpuscular Hemoglobin 33 pg (25-35) Mean Corpuscular Hemoglobin Concent 31 g/dL (31-37) Red Cell Distribution Width 15.6 % (11.5-14.5) Platelet Count 186 x10^3/uL (140-400) Neutrophils (%) (Auto) 69 % (31-73) Lymphocytes (%) (Auto) 19 % (24-48) Monocytes (%) (Auto) 9 % (0-9) Eosinophils (%) (Auto) 3 % (0-3) Basophils (%) (Auto) 1 % (0-3) Neutrophils # (Auto) 10.5 x10^3/uL (1.8-7.7) Lymphocytes # (Auto) 2.9 x10^3/uL (1.0-4.8) Monocytes # (Auto) 1.4 x10^3/uL (0.0-1.1) Eosinophils # (Auto) 0.4 x10^3/uL (0.0-0.7) Basophils # (Auto) 0.1 x10^3/uL (0.0-0.2) Segmented Neutrophils % 62 % (35-66) Band Neutrophils % 5 % (0-9) Lymphocytes % 19 % (24-48) Monocytes % 9 % (0-10) Eosinophils % 3 % (0-5) Basophils % 2 % (0-3) Platelet Estimate Adequate (ADEQUATE) Prothrombin Time 14.5 SEC (11.7-14.0) Prothromb Time International Ratio 1.1 (0.8-1.1) Activated Partial Thromboplast Time 42 SEC (24-38) Sodium Level 138 mmol/L (136-145) 139 mmol/L (136-145) Potassium Level 6.7 mmol/L (3.5-5.1) 4.4 mmol/L (3.5-5.1) Chloride Level 104 mmol/L (98-107) 106 mmol/L (98-107) Carbon Dioxide Level 23 mmol/L (21-32) 27 mmol/L (21-32) Anion Gap 11 (6-14) 6 (6-14) Blood Urea Nitrogen 58 mg/dL (8-26) 59 mg/dL (8-26) Creatinine 3.7 mg/dL (0.7-1.3) 3.8 mg/dL (0.7-1.3) Estimated GFR (Cockcroft-Gault) 16.3 15.8 BUN/Creatinine Ratio 16 (6-20) Glucose Level 352 mg/dL (70-99) 169 mg/dL (70-99) Lactic Acid Level 8.1 mmol/L (0.4-2.0) 1.0 mmol/L (0.4-2.0) Calcium Level 9.3 mg/dL (8.5-10.1) 8.7 mg/dL (8.5-10.1) Phosphorus Level 6.8 mg/dL (2.6-4.7) Magnesium Level 2.7 mg/dL (1.8-2.4) Total Bilirubin 0.4 mg/dL (0.2-1.0) Aspartate Amino Transf (AST/SGOT) 31 U/L (15-37) Alanine Aminotransferase (ALT/SGPT) 34 U/L (16-63) Alkaline Phosphatase 101 U/L (46-116) Troponin I Quantitative 0.041 ng/mL (0.000-0.055) QH-Ynp-N-Type Natriuretic Peptide 01740 pg/mL (0-124) Total Protein 6.7 g/dL (6.4-8.2) Albumin 2.7 g/dL (3.4-5.0) Albumin/Globulin Ratio 0.7 (1.0-1.7) O2 Saturation 93 % (92-99) 96 % (92-99) Arterial Blood pH 7.25 (7.35-7.45) 7.12 (7.35-7.45) Arterial Blood pCO2 at Patient Temp 55 mmHg (35-46) 63 mmHg (35-46) Arterial Blood pO2 at Patient Temp 74 mmHg (65-108) 108 mmHg (65-108) Arterial Blood HCO3 24 mmol/L (21-28) 20 mmol/L (21-28) Arterial Blood Base Excess -4 mmol/L (-3-3) -10 mmol/L (-3-3) Oxyhemoglobin 92.5 % Methemoglobin 0.3 % (0.0-1.9) Carbon Monoxide, Quantitative 0.1 % (0.0-1.9) FiO2 100 100 Test 07/11/21 04:31 Urine Collection Type Unknown Urine Color Yellow Urine Clarity Cloudy Urine pH 5.5 (<5.0-8.0) Urine Specific [place] 1.015 (1.000-1.030) Urine Protein >=300 mg/dL (NEG-TRACE) Urine Glucose (UA) 100 mg/dL (NEG) Urine Ketones (Stick) Negative mg/dL (NEG) Urine Blood Trace (NEG) Urine Nitrite Negative (NEG) Urine Bilirubin Negative (NEG) Urine Urobilinogen Dipstick 1.0 mg/dL (0.2 mg/dL) Urine Leukocyte Esterase Negative (NEG) Urine RBC 11-20 /HPF (0-2) Urine WBC 11-20 /HPF (0-4) Urine Squamous Epithelial Cells Few /LPF Urine Transitional Epithelial Cells Occ /LPF Urine Amorphous Sediment Present /HPF Urine Bacteria Few /HPF (0-FEW) Urine Hyaline Casts Occasional /HPF Urine Granular Casts Few /HPF Urine Mucus Mod /LPF Urine Sperm Present /HPF Images Images CT chest, abdomen and pelvis without contrast. CT chest: Extensive bilateral airspace infiltrates are seen throughout both lungs predominantly occupying majority of the right upper lobe. There are also diffuse scattered infiltrates in the left lung as well as right middle and lower lobe. Endotracheal tube terminates in the midtrachea. Unopacified neck and intrathoracic great vessels appear grossly normal in course and caliber. Mildly enlarged precarinal lymph node measures up to 1.2 cm. The heart size is mildly enlarged. No pericardial effusion is seen. There is no gross pleural effusion or pneumothorax. Bones are normal. CT abdomen and pelvis: Unopacified liver, spleen and pancreas are normal. Cholecystectomy. Feeding tube terminates in the stomach. Both adrenal glands and bilateral kidneys are symmetric. Mild left renal cortical atrophy seen. Suggestion of right inferior renal pole cyst. Small and large bowel loops are nondilated and unremarkable. Urinary bladder is decompressed secondary to Wood's catheter. Prostate gland is mildly enlarged. Seminal vesicles and rectum appear normal. There are spondylotic changes involving the lumbar spine. IMPRESSION: CT of chest: Extensive diffuse bilateral airspace opacities likely pulmonary infiltrates. Mild cardiomegaly. CT abdomen and pelvis: No acute intra-abdominal or pelvic process is detected. Suggestion of a cyst or cystic mass in the right inferior renal pole. Evaluation with renal ultrasound may be obtained when clinically possible. Chest radiograph: ET tube tip terminates approximately 5 cm above the tony. Enteric tube tip projects over the expected body of the stomach. Mild cardiomegaly. Aorta is tortuous. Bilateral parenchymal airspace opacities are seen, progressed compared to 07/06/21 particularly in the right upper lung. No pleural effusion or pneumothorax. IMPRESSION: 1. Support lines and tubes as above. 2. Bilateral parenchymal airspace opacities significantly progressed compared to 07/06/2021, particularly in the right upper lung. VTE Prophylaxis Ordered VTE Prophylaxis Devices: No VTE Pharmacological Prophylaxi: Yes Assessment/Plan Assessment/Plan A/P: Cardiac arrest - PEA arrest in field, noted asystole in ED. possible etiology hyperkalemia, corrected by ED. CT ordered CKD - near ESRD, was resistant to dialysis still didn't know if he ever wanted it, discussed on 07/08/2021 Acute on chronic diastolic Heart failure - given lasix IV. Will monitor Sepsis with acute hypoxic respiratory failure - cont pneumonia treatment Hyperkalemia - corrected in ED. Will monitor. Nephrology consulted Anemia - likely of chronic renal insufficiency FEN - NPO PPX - heparin CODE - DNR/DNI previously noted Dispo - ICU. D/w daughter, Cora. Patient has 3 other daughters and 3 sons as well. CC time 72 minutes Justifications for Admission Other Justification TOYA GREGORY MD Jul 11, 2021 07:59
[2021-07-11 08:22] LABS: BASE EXCESS ABG -7 mmol/L (-3-3); HCO3 ABG 20 mmol/L (21-28); PCO2 ABG 47 mmHg (35-46); PO2 ABG 60 mmHg (65-108); SAT O2 ABG 89 % (92-99)
[2021-07-11 08:39] LABS: FIO2 ABG 100
[2021-07-11] MEDS ORDERED: SODIUM BICARB ADULT 8.4% 50 MEQ/50 ML DISP.SYRIN. ONE (09:00)
[2021-07-11] MEDS ORDERED: ATROPINE 1 MG/10 ML DISP.SYRINGE. ONE (09:00)
[2021-07-11] MEDS ORDERED: EPINEPHrine SYRINGE 1 MG/10 ML SYRINGE ONE (09:00)
[2021-07-11] MEDS ORDERED: CALCIUM CHLORIDE 1,000 MG/10 ML DISP.SYRIN ONE (09:00)
--- NOTE | 2021-07-11 09:14 | PDOC2 ---
CONSULT Date of Consult Date of Consult DATE: 07/11/21 TIME: 09:10 Reason for Consult Reason for Consult: CKD stage 4 , HyperKalemia Identification/Chief Complaint Chief Complaint Unable to Obtain, Pt intubated ,on MV Source Source: Chart review History of Present Illness Reason for Visit: Patient is a 70 year old CM with history of CHF, recently discharged - on Thursday , on 10 LPM O2, recent hospitalization with pneumonia and GPC bacteremia who presents with EMS after [id number] cardiac arrest. He was alert and oriented at the scene initially ,with l O2 sats in the 80s. As they were working to get him out of the truck he had a cardiac arrest. Initial rhythm PEA. Prehospital received BLS, no meds were given. Initial rhythm and the ED was asystole. Received ACLS ,intubated ,Achieved ROSC. He was hospitalized at [facility] in february 2021 complaints of increasing shortness of breath. He has been following with cardiology and the CHF clinic @ [facility] . He is known to have CKD stage IV and follows with Dr. Jackson. His baseline GFR is approximately 17-20 depending on his fluid status. Last visit had extensive discussion with patient with daughter at bedside to start dialysis due to Cardiorenal component requiring hospitalizations/ Diuretics . He did CV as well and was aware of his proximity to needing dialysis, but denied to start Dialysis and requested transfer to [facility]; was unable as [facility] was on diversion Discussion with family (2 daughters) .Patient signed DNR paperwork during his last admission. Past Medical History Cardiovascular: CHF, HTN Renal/: Acute renal failure Family History Family History: Hypertension Social History ALCOHOL: none Current Problem List Problem List Problems Medical Problems: (1) ARDS (adult respiratory distress syndrome) Status: Acute (2) Cardiac arrest Status: Acute (3) ESRD (end stage renal disease) Status: Acute (4) Heart failure Status: Acute (5) Hyperkalemia Status: Acute (6) Sepsis with acute hypoxic respiratory failure Status: Acute Current Medications Current Medications Current Medications Vancomycin HCl 2 gm/Sodium Chloride 500 ml @ 250 mls/hr 1X ONCE IV Last administered on 07/11/21at 03:34; Start 07/11/21 at 02:15; Stop 07/11/21 at 04:14; Status DC Cefepime HCl (Maxipime) 1 gm 1X ONCE IVP Last administered on 07/11/21at 03:20; Start 07/11/21 at 02:15; Stop 07/11/21 at 02:16; Status DC Fentanyl Citrate 30 ml @ 2.5 mls/hr CONT PRN IV SEE PROTOCOL; Start 07/11/21 at 02:15 Propofol 100 ml @ 4.002 mls/ hr CONT PRN IV PER PROTOCOL Last administered on 07/11/21at 02:24; Start 07/11/21 at 02:15 Fentanyl Citrate (Fentanyl 2ml Vial) 25 mcg PRN Q1HR PRN IV SEE COMMENTS; Start 07/11/21 at 02:15 Fentanyl Citrate (Fentanyl 2ml Vial) 50 mcg PRN Q1HR PRN IV SEE COMMENTS; Start 07/11/21 at 02:15 Chlorhexidine Gluconate (Peridex) 15 ml BID MM ; Start 07/11/21 at 09:00 Morphine Sulfate (Morphine Sulfate) 2 mg PRN Q1HR PRN IV SEE COMMENTS.; Start 07/11/21 at 02:15 Morphine Sulfate (Morphine Sulfate) 4 mg PRN Q1HR PRN IV SEE COMMENTS.; Start 07/11/21 at 02:15 Insulin Human Regular (HumuLIN R VIAL) 10 unit 1X ONCE IV Last administered on 07/11/21at 03:13; Start 07/11/21 at 02:45; Stop 07/11/21 at 02:46; Status DC Furosemide (Lasix) 80 mg 1X ONCE IVP Last administered on 07/11/21at 04:09; Start 07/11/21 at 02:45; Stop 07/11/21 at 02:46; Status DC Calcium Gluconate (Calcium Gluconate) 1,000 mg 1X ONCE IVP Last administered on 07/11/21at 02:51; Start 07/11/21 at 02:45; Stop 07/11/21 at 02:46; Status DC Sodium Bicarbonate (Sodium Bicarb Adult 8.4% Syr) 50 meq 1X ONCE IV Last administered on 07/11/21at 02:55; Start 07/11/21 at 02:45; Stop 07/11/21 at 02:46; Status DC Sodium Polystyrene Sulfonate (Kayexalate) 30 gm 1X ONCE NG Last administered on 07/11/21at 04:49; Start 07/11/21 at 02:45; Stop 07/11/21 at 02:46; Status DC Albuterol Sulfate (Ventolin Neb Soln) 20 mg 1X ONCE NEB Last administered on 07/11/21at 02:45; Start 07/11/21 at 02:45; Stop 07/11/21 at 02:46; Status DC Norepinephrine Bitartrate 8 mg/ Dextrose 258 ml @ 24.962 mls/ hr 1X ONCE IV Last administered on 07/11/21at 03:25; Start 07/11/21 at 03:30; Stop 07/11/21 at 13:50 Midazolam HCl (Versed) 5 mg STK-MED ONCE .ROUTE ; Start 07/11/21 at 07:37; Stop 07/11/21 at 07:38; Status DC Midazolam HCl 100 ml @ 1 mls/hr CONT PRN IV SEE I/O RECORD; Start 07/11/21 at 07:45 Midazolam HCl (Versed) 5 mg 1X ONCE IV ; Start 07/11/21 at 07:45; Stop 07/11/21 at 07:47; Status DC Active Scripts Active Zyvox (Linezolid) 600 Mg Tablet 600 Mg PO BID 7 Days Reported Multi Vitamin Daily (Multivitamin) 1 Each Tablet 1 Tab PO DAILY 30 Days Gabapentin (Gabapentin) 100 Mg Capsule 100 Mg PO DAILY Carvedilol 25 Mg Tablet 25 Mg PO BIDWMEALS Amlodipine Besylate 10 Mg Tablet 10 Mg PO DAILY Allopurinol 300 Mg Tablet 1 Tab PO DAILY Januvia (Sitagliptin Phosphate) 25 Mg Tablet 25 Mg PO DAILY Furosemide 40 Mg Tablet 1 Tab PO QODAY Furosemide 20 Mg Tablet 1 Tab PO QODAY Isosorbide Mononitrate Er (Isosorbide Mononitrate) 30 Mg Tab.er.24h 20 Mg PO BID Hydralazine Hcl 50 Mg Tablet 1 Tab PO TID Aspir 81 (Aspirin) 81 Mg Tablet. 1 Tab PO DAILY Omeprazole 40 Mg Capsule. 40 Mg PO DAILY Allergies Allergies: Coded Allergies: Penicillins (Verified Allergy, Intermediate, 02/26/16) Lretuuf-Eyi-Ajs Reductase Inhibitor (Verified Allergy, Intermediate, 07/05/21) lisinopril (Verified Allergy, Intermediate, COUGH, 07/05/21) naproxen (Verified Allergy, Intermediate, 07/05/21) clindamycin (Verified Allergy, Mild, Diarrhea, 07/05/21) ROS Review of System Unable to Obtain 2/2 Intubated Physical Exam Physical Exam GENERAL: Intubated, on vent , sedated HEENT: Normocephalic, atraumatic. Anicteric. NECK: Supple, LUNGS: decreased at bases, Intubated HEART: S1, S2. ABDOMEN: Soft, Obese nontender Bowel sounds present. EXTREMITIES: Bilateral lower extremity edema ++, DERM: Chronic changes of CVI NEUROLOGIC: - sedated, on vent, some facial twitching+ KRISTY rod, Vital Signs Vital Signs Date Time Temp Pulse Resp B/P (MAP) Pulse Ox O2 Delivery O2 Flow Rate FiO2 07/11/21 08:00 96.5 66 22 85/47 (60) 91 Ventilator 96.5 07/11/21 03:50 20.0 Assessment & Plan - CKD stage 4 stage IV with baseline GFR anywhere from 17-20 depending on fluid status- stable renal function , close to his baseline, Non Oliguric He has been aware of his proximity to needing dialysis per our disucssion earlier this week . He follows with Dr Jackson . 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 Labs Labs Laboratory Tests Test 07/11/21 01:50 07/11/21 02:10 07/11/21 02:11 07/11/21 04:20 White Blood Count 15.4 x10^3/uL (4.0-11.0) Red Blood Count 3.63 x10^6/uL (4.30-5.70) Hemoglobin 12.0 g/dL (13.0-17.5) Hematocrit 38.8 % (39.0-53.0) Mean Corpuscular Volume 107 fL (79-100) Mean Corpuscular Hemoglobin 33 pg (25-35) Mean Corpuscular Hemoglobin Concent 31 g/dL (31-37) Red Cell Distribution Width 15.6 % (11.5-14.5) Platelet Count 186 x10^3/uL (140-400) Neutrophils (%) (Auto) 69 % (31-73) Lymphocytes (%) (Auto) 19 % (24-48) Monocytes (%) (Auto) 9 % (0-9) Eosinophils (%) (Auto) 3 % (0-3) Basophils (%) (Auto) 1 % (0-3) Neutrophils # (Auto) 10.5 x10^3/uL (1.8-7.7) Lymphocytes # (Auto) 2.9 x10^3/uL (1.0-4.8) Monocytes # (Auto) 1.4 x10^3/uL (0.0-1.1) Eosinophils # (Auto) 0.4 x10^3/uL (0.0-0.7) Basophils # (Auto) 0.1 x10^3/uL (0.0-0.2) Segmented Neutrophils % 62 % (35-66) Band Neutrophils % 5 % (0-9) Lymphocytes % 19 % (24-48) Monocytes % 9 % (0-10) Eosinophils % 3 % (0-5) Basophils % 2 % (0-3) Platelet Estimate Adequate (ADEQUATE) Prothrombin Time 14.5 SEC (11.7-14.0) Prothromb Time International Ratio 1.1 (0.8-1.1) Activated Partial Thromboplast Time 42 SEC (24-38) Sodium Level 138 mmol/L (136-145) 139 mmol/L (136-145) Potassium Level 6.7 mmol/L (3.5-5.1) 4.4 mmol/L (3.5-5.1) Chloride Level 104 mmol/L (98-107) 106 mmol/L (98-107) Carbon Dioxide Level 23 mmol/L (21-32) 27 mmol/L (21-32) Anion Gap 11 (6-14) 6 (6-14) Blood Urea Nitrogen 58 mg/dL (8-26) 59 mg/dL (8-26) Creatinine 3.7 mg/dL (0.7-1.3) 3.8 mg/dL (0.7-1.3) Estimated GFR (Cockcroft-Gault) 16.3 15.8 BUN/Creatinine Ratio 16 (6-20) Glucose Level 352 mg/dL (70-99) 169 mg/dL (70-99) Lactic Acid Level 8.1 mmol/L (0.4-2.0) 1.0 mmol/L (0.4-2.0) Calcium Level 9.3 mg/dL (8.5-10.1) 8.7 mg/dL (8.5-10.1) Phosphorus Level 6.8 mg/dL (2.6-4.7) Magnesium Level 2.7 mg/dL (1.8-2.4) Total Bilirubin 0.4 mg/dL (0.2-1.0) Aspartate Amino Transf (AST/SGOT) 31 U/L (15-37) Alanine Aminotransferase (ALT/SGPT) 34 U/L (16-63) Alkaline Phosphatase 101 U/L (46-116) Troponin I Quantitative 0.041 ng/mL (0.000-0.055) MX-Ziu-[id number]-Type Natriuretic Peptide 66862 pg/mL (0-124) Total Protein 6.7 g/dL (6.4-8.2) Albumin 2.7 g/dL (3.4-5.0) Albumin/Globulin Ratio 0.7 (1.0-1.7) O2 Saturation 93 % (92-99) 96 % (92-99) Arterial Blood pH 7.25 (7.35-7.45) 7.12 (7.35-7.45) Arterial Blood pCO2 at Patient Temp 55 mmHg (35-46) 63 mmHg (35-46) Arterial Blood pO2 at Patient Temp 74 mmHg (65-108) 108 mmHg (65-108) Arterial Blood HCO3 24 mmol/L (21-28) 20 mmol/L (21-28) Arterial Blood Base Excess -4 mmol/L (-3-3) -10 mmol/L (-3-3) Oxyhemoglobin 92.5 % Methemoglobin 0.3 % (0.0-1.9) Carbon Monoxide, Quantitative 0.1 % (0.0-1.9) FiO2 100 100 Test 07/11/21 04:31 07/11/21 08:17 Urine Collection Type Unknown Urine Color Yellow Urine Clarity Cloudy Urine pH 5.5 (<5.0-8.0) Urine Specific [place] 1.015 (1.000-1.030) Urine Protein >=300 mg/dL (NEG-TRACE) Urine Glucose (UA) 100 mg/dL (NEG) Urine Ketones (Stick) Negative mg/dL (NEG) Urine Blood Trace (NEG) Urine Nitrite Negative (NEG) Urine Bilirubin Negative (NEG) Urine Urobilinogen Dipstick 1.0 mg/dL (0.2 mg/dL) Urine Leukocyte Esterase Negative (NEG) Urine RBC 11-20 /HPF (0-2) Urine WBC 11-20 /HPF (0-4) Urine Squamous Epithelial Cells Few /LPF Urine Transitional Epithelial Cells Occ /LPF Urine Amorphous Sediment Present /HPF Urine Bacteria Few /HPF (0-FEW) Urine Hyaline Casts Occasional /HPF Urine Granular Casts Few /HPF Urine Mucus Mod /LPF Urine Sperm Present /HPF O2 Saturation 89 % (92-99) Arterial Blood pH 7.25 (7.35-7.45) Arterial Blood pCO2 at Patient Temp 47 mmHg (35-46) Arterial Blood pO2 at Patient Temp 60 mmHg (65-108) Arterial Blood HCO3 20 mmol/L (21-28) Arterial Blood Base Excess -7 mmol/L (-3-3) FiO2 100 Laboratory Tests Test 07/11/21 01:50 07/11/21 02:10 07/11/21 02:11 07/11/21 04:20 White Blood Count 15.4 x10^3/uL (4.0-11.0) Red Blood Count 3.63 x10^6/uL (4.30-5.70) Hemoglobin 12.0 g/dL (13.0-17.5) Hematocrit 38.8 % (39.0-53.0) Mean Corpuscular Volume 107 fL (79-100) Mean Corpuscular Hemoglobin 33 pg (25-35) Mean Corpuscular Hemoglobin Concent 31 g/dL (31-37) Red Cell Distribution Width 15.6 % (11.5-14.5) Platelet Count 186 x10^3/uL (140-400) Neutrophils (%) (Auto) 69 % (31-73) Lymphocytes (%) (Auto) 19 % (24-48) Monocytes (%) (Auto) 9 % (0-9) Eosinophils (%) (Auto) 3 % (0-3) Basophils (%) (Auto) 1 % (0-3) Neutrophils # (Auto) 10.5 x10^3/uL (1.8-7.7) Lymphocytes # (Auto) 2.9 x10^3/uL (1.0-4.8) Monocytes # (Auto) 1.4 x10^3/uL (0.0-1.1) Eosinophils # (Auto) 0.4 x10^3/uL (0.0-0.7) Basophils # (Auto) 0.1 x10^3/uL (0.0-0.2) Segmented Neutrophils % 62 % (35-66) Band Neutrophils % 5 % (0-9) Lymphocytes % 19 % (24-48) Monocytes % 9 % (0-10) Eosinophils % 3 % (0-5) Basophils % 2 % (0-3) Platelet Estimate Adequate (ADEQUATE) Prothrombin Time 14.5 SEC (11.7-14.0) Prothromb Time International Ratio 1.1 (0.8-1.1) Activated Partial Thromboplast Time 42 SEC (24-38) Sodium Level 138 mmol/L (136-145) 139 mmol/L (136-145) Potassium Level 6.7 mmol/L (3.5-5.1) 4.4 mmol/L (3.5-5.1) Chloride Level 104 mmol/L (98-107) 106 mmol/L (98-107) Carbon Dioxide Level 23 mmol/L (21-32) 27 mmol/L (21-32) Anion Gap 11 (6-14) 6 (6-14) Blood Urea Nitrogen 58 mg/dL (8-26) 59 mg/dL (8-26) Creatinine 3.7 mg/dL (0.7-1.3) 3.8 mg/dL (0.7-1.3) Estimated GFR (Cockcroft-Gault) 16.3 15.8 BUN/Creatinine Ratio 16 (6-20) Glucose Level 352 mg/dL (70-99) 169 mg/dL (70-99) Lactic Acid Level 8.1 mmol/L (0.4-2.0) 1.0 mmol/L (0.4-2.0) Calcium Level 9.3 mg/dL (8.5-10.1) 8.7 mg/dL (8.5-10.1) Phosphorus Level 6.8 mg/dL (2.6-4.7) Magnesium Level 2.7 mg/dL (1.8-2.4) Total Bilirubin 0.4 mg/dL (0.2-1.0) Aspartate Amino Transf (AST/SGOT) 31 U/L (15-37) Alanine Aminotransferase (ALT/SGPT) 34 U/L (16-63) Alkaline Phosphatase 101 U/L (46-116) Troponin I Quantitative 0.041 ng/mL (0.000-0.055) MW-Vgn-R-Type Natriuretic Peptide 14879 pg/mL (0-124) Total Protein 6.7 g/dL (6.4-8.2) Albumin 2.7 g/dL (3.4-5.0) Albumin/Globulin Ratio 0.7 (1.0-1.7) O2 Saturation 93 % (92-99) 96 % (92-99) Arterial Blood pH 7.25 (7.35-7.45) 7.12 (7.35-7.45) Arterial Blood pCO2 at Patient Temp 55 mmHg (35-46) 63 mmHg (35-46) Arterial Blood pO2 at Patient Temp 74 mmHg (65-108) 108 mmHg (65-108) Arterial Blood HCO3 24 mmol/L (21-28) 20 mmol/L (21-28) Arterial Blood Base Excess -4 mmol/L (-3-3) -10 mmol/L (-3-3) Oxyhemoglobin 92.5 % Methemoglobin 0.3 % (0.0-1.9) Carbon Monoxide, Quantitative 0.1 % (0.0-1.9) FiO2 100 100 Test 07/11/21 04:31 07/11/21 08:17 Urine Collection Type Unknown Urine Color Yellow Urine Clarity Cloudy Urine pH 5.5 (<5.0-8.0) Urine Specific [place] 1.015 (1.000-1.030) Urine Protein >=300 mg/dL (NEG-TRACE) Urine Glucose (UA) 100 mg/dL (NEG) Urine Ketones (Stick) Negative mg/dL (NEG) Urine Blood Trace (NEG) Urine Nitrite Negative (NEG) Urine Bilirubin Negative (NEG) Urine Urobilinogen Dipstick 1.0 mg/dL (0.2 mg/dL) Urine Leukocyte Esterase Negative (NEG) Urine RBC 11-20 /HPF (0-2) Urine WBC 11-20 /HPF (0-4) Urine Squamous Epithelial Cells Few /LPF Urine Transitional Epithelial Cells Occ /LPF Urine Amorphous Sediment Present /HPF Urine Bacteria Few /HPF (0-FEW) Urine Hyaline Casts Occasional /HPF Urine Granular Casts Few /HPF Urine Mucus Mod /LPF Urine Sperm Present /HPF O2 Saturation 89 % (92-99) Arterial Blood pH 7.25 (7.35-7.45) Arterial Blood pCO2 at Patient Temp 47 mmHg (35-46) Arterial Blood pO2 at Patient Temp 60 mmHg (65-108) Arterial Blood HCO3 20 mmol/L (21-28) Arterial Blood Base Excess -7 mmol/L (-3-3) FiO2 100 Review All relevant outside records, renal labs, imaging studies, telemetry/EKG's were reviewed. Images Images AP View of the chest DATE: 07/11/2021 1:55 AM INDICATION: Reason: POST CODE;ET/OG PLACEMENT / Spl. Instructions: / History: COMPARISON: 07/06/2021 02/04/2021 FINDINGS: ET tube tip terminates approximately 5 cm above the tony. Enteric tube tip projects over the expected body of the stomach. Mild cardiomegaly. Aorta is tortuous. Bilateral parenchymal airspace opacities are seen, progressed compared to 07/06/21 particularly in the right upper lung. No pleural effusion or pneumothorax. IMPRESSION: 1. Support lines and tubes as above. 2. Bilateral parenchymal airspace opacities significantly progressed compared to 07/06/2021, particularly in the right upper lung. CT CHEST ABDOMEN PELVIS WO PQRS Compliance Statement: One or more of the following individualized dose reduction techniques were utilized for this examination: 1. Automated exposure control 2. Adjustment of the mA and/or kV according to patient size 3. Use of iterative reconstruction technique Exam performed: CT chest, abdomen and pelvis without contrast. HISTORY: Respiratory arrest DATE OF SERVICE: 06/24/2021. COMPARISON: CT abdomen and pelvis from 02/26/2016 TECHNIQUE: Contiguous helical acquisitions are obtained through the chest, abdomen and pelvis without IV contrast. Sagittal and coronal reformatted images are obtained and reviewed. FINDINGS: CT chest: Extensive bilateral airspace infiltrates are seen throughout both lungs predominantly occupying majority of the right upper lobe. There are also diffuse scattered infiltrates in the left lung as well as right middle and lower lobe. Endotracheal tube terminates in the midtrachea. Unopacified neck and intra thoracic great vessels appear grossly normal in course and caliber. Mildly enlarged precarinal lymph node measures up to 1.2 cm. The heart size is mildly enlarged. No pericardial effusion is seen. There is no gross pleural effusion or pneumothorax. Bones are normal. CT abdomen and pelvis: Unopacified liver, spleen and pancreas are normal. Cholecystectomy. Feeding tube terminates in the stomach. Both adrenal glands and bilateral kidneys are symmetric. Mild left renal cortical atrophy seen. Suggestion of right inferior renal pole cyst. Small and large bowel loops are nondilated and unremarkable. Urinary bladder is decompressed secondary to Rod's catheter. Prostate gland is mildly enlarged. Seminal vesicles and rectum appear normal. There are spondylotic changes involving the lumbar spine. IMPRESSION: CT of chest: Extensive diffuse bilateral airspace opacities likely pulmonary infiltrates. Mild cardiomegaly. CT abdomen and pelvis: No acute intra-abdominal or pelvic process is detected. Suggestion of a cyst or cystic mass in the right inferior renal pole. Evaluation with renal ultrasound may be obtained when clinically possible. MEAGAN JACOBO MD Jul 11, 2021 09:14
[2021-07-11] MEDS: CHLORHEXIDINE 0.12% 15 ML MOUTHWASH. MM SCH ×2 (09:23→20:19)
[2021-07-11] MEDS ORDERED: NOREPINEPHRINE VIAL 8 MG in IV DEXTROSE 5% 250 ML IV PRN (10:30)
--- NOTE | 2021-07-11 11:09 | NUR ---
Allergies and reactions =Penicillins,statins,clindamycin,lisinopril,and naproxen INR =1.1 BUN=59 Cr =3.8 Blhuhyezg=263 Blood culture done yes and results negative blood culture results Order Verified Y Consent signed Y Previous PICC placement unknown Past Medical/Surgical history and current diagnosis reviewed Y Patient Medical /Surgical History Related to PICC line placement None Arrhythmias Diabetes History of acute/chronic renal failure Infectious Disease consult Problems breathing lying flat Renal consult Special considerations for PICC line placement None PICC placement indication Multiple/ Frequent blood draws, Poor peripheral intravenous access Nisha Albright name of PICC Nurse
--- NOTE | 2021-07-11 11:14 | CONS ---
DATE OF CONSULTATION: 07/11/2021 PULMONARY CONSULTATION ATTENDING PHYSICIAN: Dr. Sherman. REASON FOR CONSULTATION: Cardiac arrest. HISTORY OF PRESENT ILLNESS: The patient is a 70-year-old male who has history of end-stage renal disease, but preferred not to have dialysis. He has a history of CHF. He has recent hospitalization for respiratory failure and pneumonia. The patient also was treated for gram-positive cocci bacteremia. [facility] out of hospital cardiac arrest. He was found by EMS in his truck and noted that initial rhythm was PEA. His CPR was started in the field. Initial rhythm at the ED was asystole. He received ACLS protocol again with calcium, bicarbonate and several rounds of epinephrine. He was intubated. He achieved return of spontaneous circulation. No STEMI on post-arrest EKG. He had some hyperkalemia, which was treated with Lasix and Kayexalate. The patient underwent imaging study, which showed diffuse extensive bilateral infiltrates with small bilateral pleural effusions. The patient's CT abdomen and pelvis showed no acute intraabdominal process. The patient's arterial blood gases revealed a pH of 7.12, pCO2 of 63 and a pO2 of 108 and latest with a pH of 7.25, pCO2 of 47 and a pO2 of 60 on 100% FiO2. The patient's lactic acid was 8.1, now down to 1.0. He is requiring low dose Levophed. He has decreasing urine output. His creatinine is 3.8 and a BUN of 59. His daughters are at the bedside. I have discussed with them in detail along with tourist agent. PAST MEDICAL HISTORY: Significant for CHF, hypertension and JEFF. FAMILY HISTORY: Hypertension. PAST SURGICAL HISTORY: No recent surgery. ALLERGIES: As listed in the MRAD. CURRENT MEDICATIONS: Reviewed as listed in the MRAD including vasopressor. REVIEW OF SYSTEMS: System review is unable to obtain from the patient. PHYSICAL EXAMINATION: VITAL SIGNS: Reviewed. Blood pressure 110 systolic, pulse ox is 95%. Afebrile. NECK: Supple. He does not trigger the vent. LUNGS: With diminished breath sounds. CARDIOVASCULAR: With a regular rate. ABDOMEN: Soft. EXTREMITIES: With trace pitting edema. LABORATORY DATA: Reviewed. BUN 59, creatinine 3.8. INR 1.0. WBC 15.4, hemoglobin 12.0 and platelets are 186. IMPRESSION: 1. Acute hypoxic and hypercapnic respiratory failure secondary to out of hospital cardiac arrest, initially was pulseless electrical activity arrest in the field and then asystole in the Emergency Department, difficult to determine the exact duration of total advanced cardiovascular life support protocol, but I am assuming at least 25-30 minutes. 2. Possible non-ST elevation myocardial infarction. 3. Abnormal CT chest with extensive bilateral infiltrates, suspect aspiration pneumonia. 4. Leukocytosis. 5. Acute kidney injury. 6. Lactic acidosis post-cardiac arrest, now resolved. 7. No significant tobacco history. 8. The patient's COVID status is fully vaccinated. In fact, he received a booster recently. RECOMMENDATIONS: 1. Continue present vent support. I have made changes on the ventilator settings based on ABGs. 2. Continue present vasopressor support. 3. Difficult to assess for anoxic encephalopathy since he received 4 mg of Versed and also currently on low dose propofol. 4. Follow Cardiology recommendation. 5. Follow Renal recommendations. 6. Empiric antibiotics. He has multiple allergies, especially PENICILLIN, CLINDAMYCIN. We will add Levaquin for now. 7. DVT and stress ulcer prophylaxis. 8. I had a long discussion with the patient's daughters at the bedside. They are concerned about his age as well as his wishes not to prolong care on life support. At this point, they wanted to know whether he has anoxic brain injury or not, which I told them that it will be difficult to assess since he has received sedation. At this time, we would like to pursue with CT head to make sure there is no intracranial bleed. I did discuss with them about code status and they agree with the DNR. They also agree not to escalate any further vasopressors if his shock worsens. At this time, we will hold off on initiating dialysis as well. 9. We will regroup in the next 24 hours and reassess the situation and discuss the goals of care as well. Total critical care time 50 minutes. GUILLE DELGADILLO: Tom TID: [id number]
--- NOTE | 2021-07-11 11:18 | PDOC2 ---
CARDIAC CONSULT DATE OF CONSULT Date of Consult DATE: 07/11/21 TIME: 11:05 REASON FOR CONSULT Reason for Consult: PEA arrest REFERRING PHYSICIAN Referring Physician: Dr. Sherman SOURCE Source: Chart review HISTORY OF PRESENT ILLNESS HISTORY OF PRESENT ILLNESS This is a 70 yo male who presented secondary to out of hospital arrest. EMS initially called due to shortness of breath. Was alert and oriented upon their arrival. Oxygen saturation was noted in the 80's. When emergency services was working to get him our of his truck he had cardiac arrest. Initial rhythm noted to be PEA. Patient had recent hospitalization with respiratory failure secondary to CHF/PNA, bacteremia, and renal failure. HD was recommended, but patient was hesitant PAST MEDICAL HISTORY Cardiovascular: CHF, HTN, Hyperlipidemia GI: Other (Maldonado's Esophagus ) Endocrine: Diabetes PAST SURGICAL HISTORY Past Surgical History: Cholecystectomy FAMILY HISTORY Family History: Family History Unknown SOCIAL HISTORY Smoke: No ALCOHOL: none Drugs: None CURRENT MEDICATIONS CURRENT MEDICATIONS Current Medications Medications (Trade) Dose Ordered Sig/Kory Route PRN Reason Start Time Stop Time Status Last Admin Dose Admin Vancomycin HCl 2 gm/Sodium Chloride 500 ml @ 250 mls/hr 1X ONCE IV 07/11/21 02:15 07/11/21 04:14 DC 07/11/21 03:34 Cefepime HCl (Maxipime) 1 gm 1X ONCE IVP 07/11/21 02:15 07/11/21 02:16 DC 07/11/21 03:20 Propofol 100 ml @ 4.002 mls/ hr CONT PRN IV PER PROTOCOL 07/11/21 02:15 07/11/21 10:07 Chlorhexidine Gluconate (Peridex) 15 ml BID MM 07/11/21 09:00 07/11/21 09:23 Insulin Human Regular (HumuLIN R VIAL) 10 unit 1X ONCE IV 07/11/21 02:45 07/11/21 02:46 DC 07/11/21 03:13 Furosemide (Lasix) 80 mg 1X ONCE IVP 07/11/21 02:45 07/11/21 02:46 DC 07/11/21 04:09 Calcium Gluconate (Calcium Gluconate) 1,000 mg 1X ONCE IVP 07/11/21 02:45 07/11/21 02:46 DC 07/11/21 02:51 Sodium Bicarbonate (Sodium Bicarb Adult 8.4% Syr) 50 meq 1X ONCE IV 07/11/21 02:45 07/11/21 02:46 DC 07/11/21 02:55 Sodium Polystyrene Sulfonate (Kayexalate) 30 gm 1X ONCE NG 07/11/21 02:45 07/11/21 02:46 DC 07/11/21 04:49 Albuterol Sulfate (Ventolin Neb Soln) 20 mg 1X ONCE NEB 07/11/21 02:45 07/11/21 02:46 DC 07/11/21 02:45 Norepinephrine Bitartrate 8 mg/ Dextrose 258 ml @ 24.962 mls/ hr 1X ONCE IV 07/11/21 03:30 07/11/21 13:50 07/11/21 03:25 Midazolam HCl (Versed) 5 mg 1X ONCE IV 07/11/21 07:45 07/11/21 07:47 DC 07/11/21 09:22 Norepinephrine Bitartrate 8 mg/ Dextrose 258 ml @ 24.962 mls/ hr CONT PRN IV PER PROTOCOL 07/11/21 10:30 07/11/21 10:21 ALLERGIES ALLERGIES: Coded Allergies: Penicillins (Verified Allergy, Intermediate, 02/26/16) Fseruea-Cao-Uql Reductase Inhibitor (Verified Allergy, Intermediate, 07/05/21) lisinopril (Verified Allergy, Intermediate, COUGH, 07/05/21) naproxen (Verified Allergy, Intermediate, 07/05/21) clindamycin (Verified Allergy, Mild, Diarrhea, 07/05/21) ROS Review of System unobtainable PHYSICAL EXAM General: Other (sedated) HEENT: Atraumatic Lungs: Other (MV) Heart: Regular rate Abdomen: Other (obese) Extremities: Other (1+ bilateral LE edema ) Skin: No significant lesion Psych/Mental Status: Other (unable to assess) MUSCULOSKELETAL: No deformity VITALS/I&O VITALS/I&O: Vital Signs Date Time Temp Pulse Resp B/P (MAP) Pulse Ox O2 Delivery O2 Flow Rate FiO2 07/11/21 10:00 61 19 140/62 (88) 94 Ventilator 07/11/21 08:00 96.5 96.5 07/11/21 03:50 20.0 I & O 07/10/21 07/10/21 07/11/21 15:00 23:00 07:00 Intake Total 250 ml Balance 250 ml LABS Lab: Laboratory Tests Test 07/11/21 01:50 07/11/21 02:10 07/11/21 02:11 07/11/21 04:20 White Blood Count 15.4 x10^3/uL (4.0-11.0) H Red Blood Count 3.63 x10^6/uL (4.30-5.70) L Hemoglobin 12.0 g/dL (13.0-17.5) L Hematocrit 38.8 % (39.0-53.0) L Mean Corpuscular Volume 107 fL (79-100) H Mean Corpuscular Hemoglobin 33 pg (25-35) Mean Corpuscular Hemoglobin Concent 31 g/dL (31-37) Red Cell Distribution Width 15.6 % (11.5-14.5) H Platelet Count 186 x10^3/uL (140-400) Neutrophils (%) (Auto) 69 % (31-73) Lymphocytes (%) (Auto) 19 % (24-48) L Monocytes (%) (Auto) 9 % (0-9) Eosinophils (%) (Auto) 3 % (0-3) Basophils (%) (Auto) 1 % (0-3) Neutrophils # (Auto) 10.5 x10^3/uL (1.8-7.7) H Lymphocytes # (Auto) 2.9 x10^3/uL (1.0-4.8) Monocytes # (Auto) 1.4 x10^3/uL (0.0-1.1) H Eosinophils # (Auto) 0.4 x10^3/uL (0.0-0.7) Basophils # (Auto) 0.1 x10^3/uL (0.0-0.2) Segmented Neutrophils % 62 % (35-66) Band Neutrophils % 5 % (0-9) Lymphocytes % 19 % (24-48) L Monocytes % 9 % (0-10) Eosinophils % 3 % (0-5) Basophils % 2 % (0-3) Platelet Estimate Adequate (ADEQUATE) Prothrombin Time 14.5 SEC (11.7-14.0) H Prothrombin Time INR 1.1 (0.8-1.1) Activated Partial Thromboplast Time 42 SEC (24-38) H Sodium Level 138 mmol/L (136-145) 139 mmol/L (136-145) Potassium Level 6.7 mmol/L (3.5-5.1) *H 4.4 mmol/L (3.5-5.1) # Chloride Level 104 mmol/L (98-107) 106 mmol/L (98-107) Carbon Dioxide Level 23 mmol/L (21-32) 27 mmol/L (21-32) Anion Gap 11 (6-14) 6 (6-14) Blood Urea Nitrogen 58 mg/dL (8-26) H 59 mg/dL (8-26) H Creatinine 3.7 mg/dL (0.7-1.3) H 3.8 mg/dL (0.7-1.3) H Estimated GFR (Cockcroft-Gault) 16.3 15.8 BUN/Creatinine Ratio 16 (6-20) Glucose Level 352 mg/dL (70-99) H 169 mg/dL (70-99) H Lactic Acid Level 8.1 mmol/L (0.4-2.0) *H 1.0 mmol/L (0.4-2.0) Calcium Level 9.3 mg/dL (8.5-10.1) 8.7 mg/dL (8.5-10.1) Phosphorus Level 6.8 mg/dL (2.6-4.7) H Magnesium Level 2.7 mg/dL (1.8-2.4) H Total Bilirubin 0.4 mg/dL (0.2-1.0) Aspartate Amino Transferase (AST) 31 U/L (15-37) Alanine Aminotransferase (ALT) 34 U/L (16-63) Alkaline Phosphatase 101 U/L (46-116) Troponin I Quantitative 0.041 ng/mL (0.000-0.055) AQ-Pyl-N-Type Natriuretic Peptide 55733 pg/mL (0-124) H Total Protein 6.7 g/dL (6.4-8.2) Albumin 2.7 g/dL (3.4-5.0) L Albumin/Globulin Ratio 0.7 (1.0-1.7) L O2 Saturation 93 % (92-99) 96 % (92-99) Arterial Blood pH 7.25 (7.35-7.45) L 7.12 (7.35-7.45) *L Arterial Blood pCO2 at Patient Temp 55 mmHg (35-46) H 63 mmHg (35-46) *H Arterial Blood pO2 at Patient Temp 74 mmHg (65-108) 108 mmHg (65-108) Arterial Blood HCO3 24 mmol/L (21-28) 20 mmol/L (21-28) L Arterial Blood Base Excess -4 mmol/L (-3-3) L -10 mmol/L (-3-3) L Oxyhemoglobin 92.5 % Methemoglobin 0.3 % (0.0-1.9) Carbon Monoxide, Quantitative 0.1 % (0.0-1.9) FiO2 100 100 Test 07/11/21 04:31 07/11/21 08:17 Urine Collection Type Unknown Urine Color Yellow Urine Clarity Cloudy Urine pH 5.5 (<5.0-8.0) Urine Specific [place] 1.015 (1.000-1.030) Urine Protein >=300 mg/dL (NEG-TRACE) Urine Glucose (UA) 100 mg/dL (NEG) Urine Ketones (Stick) Negative mg/dL (NEG) Urine Blood Trace (NEG) Urine Nitrite Negative (NEG) Urine Bilirubin Negative (NEG) Urine Urobilinogen Dipstick 1.0 mg/dL (0.2 mg/dL) Urine Leukocyte Esterase Negative (NEG) Urine RBC 11-20 /HPF (0-2) Urine WBC 11-20 /HPF (0-4) Urine Squamous Epithelial Cells Few /LPF Urine Transitional Epithelial Cells Occ /LPF Urine Amorphous Sediment Present /HPF Urine Bacteria Few /HPF (0-FEW) Urine Hyaline Casts Occasional /HPF Urine Granular Casts Few /HPF Urine Mucus Mod /LPF Urine Sperm Present /HPF O2 Saturation 89 % (92-99) L Arterial Blood pH 7.25 (7.35-7.45) L Arterial Blood pCO2 at Patient Temp 47 mmHg (35-46) H Arterial Blood pO2 at Patient Temp 60 mmHg (65-108) L Arterial Blood HCO3 20 mmol/L (21-28) L Arterial Blood Base Excess -7 mmol/L (-3-3) L FiO2 100 Laboratory Tests 07/11/21 01:50 Laboratory Tests 07/11/21 01:50 07/11/21 04:20 ECHOCARDIOGRAM ECHOCARDIOGRAM <Conclusion> The left ventricle is normal size. The left ventricular systolic function is normal. The ejection fraction is 55 to 60%. Doppler and Color Flow revealed no significant aortic regurgitation. There is no significant aortic valvular stenosis. Doppler and Color-flow revealed mild mitral regurgitation. Doppler and Color Flow revealed trace to mild tricuspid regurgitation. DATE: 07/07/21 [id number] ASSESSMENT/PLAN ASSESSMENT/PLAN 1. Acute respiratory failure 2. OSH PEA arrest, asystole in ED. no ventricular arrhythmias or arrhythmias on tele. 3. JEFF on CKD, hyperkalemia 4. Acute on chronic diastolic CHF; recent echo with preserved LV systolic function. Follows with [facility] cardiology. 5. Leukocytosis, lactic acidosis, shock 6. H/o hypertension; presently hypotensive on low-dose Levophed 7. Hyperlipidemia 8. Diabetes, II 9. Probable anoxic encephalopathy Recommendations Limited echo to assess LV systolic function Trend trop Diuresis as per renal Ongoing lung optimization Supportive care Now DNR. Awaiting family decisions regarding aggressiveness of care ROMEO TRENT APRN Jul 11, 2021 11:18
--- NOTE | 2021-07-11 12:05 | NUR ---
Procedure: Following complete explanation of the PICC procedure including the indications, risks, and potential complications, informed consent was obtained. The possibility for infection was discussed along with signs, symptoms, and prevention. All the questions were answered. Written and verbal patient education was provided. Hand hygiene performed. Standardized central line checklist was utilized. The patient was placed in the supine position, the arm was prepped with chlorhexidine and patient draped with maximum sterile barrier. 3 mL 1% lidocaine was infiltrated into the skin to provide local anesthesia. A thorough assessment of right upper extremity completed. Using real-time ultrasound guidance and standardized micro puncture set, the brachial vein was punctured and a peel away sheath was placed using the modified Seldinger technique. A tip location device was used to ensure adequate catheter placement. The catheter was secured using a securement device and an antimicrobial patch was applied directly on the insertion site followed by a transparent dressing. All ports withdraw blood and flush without resistance. Patient tolerated the procedure without apparent complication(s). Triple Lumen Power PICC placement successful and uncomplicated. Placement verified by EKG tip confirmation system and/or chest x-ray. Tip located in the CAJ/SVC Complications: None
[2021-07-11 13:18] LABS: BASE EXCESS ABG -4 mmol/L (-3-3); HCO3 ABG 24 mmol/L (21-28); PCO2 ABG 55 mmHg (35-46); PO2 ABG 74 mmHg (65-108); SAT O2 ABG 93 % (92-99)
[2021-07-11 13:56] LABS: CALCIUM 8.8 mg/dL (8.5-10.1); CREATININE 3.9 mg/dL (0.7-1.3); GFR 15.4; POTASSIUM 4.2 mmol/L (3.5-5.1)
--- NOTE | 2021-07-11 14:15 | PDOC2 ---
NEUROLOGY CONSULT Date of Service DOS: DATE: 07/11/21 TIME: 14:05 Reason for Consult Reason for Consult: Anoxic encephalopathy Referring Physician Referring Physician: Dr. Vizcarra Source Source: Caregiver (Daughter), Chart review History of Present Illness History of Present Illness The patient is a 70-year-old right-handed male just discharged from an admission for pneumonia and respiratory failure. He was found by emergency medical personnel in his truck without his oxygen on. He is supposed to be on 10 L. He was in pulseless electrical activity, CPR was started in the field, later the patient had asystole in the emergency department. He is intubated and sedated in the ICU. Patient had declared that he wanted to be DO NOT RESUSCITATE during the last admission. Past Medical History Cardiovascular: CHF, HTN Pulmonary: Pneumonia GI: Diverticulosis, Other (Maldonado's esophagus, colonic polyps) Hepatobiliary: Other (Fatty liver) Musculoskeletal: Osteoarthritis Renal/: Chronic renal insuff Endocrine: No pertinent hx Past Surgical History Past Surgical History: Cholecystectomy, Other (left eye) Family History Family History: No pertinent hx Social History Social History , several children, no alcohol or tobacco Current Medications Current Medications Current Medications Vancomycin HCl 2 gm/Sodium Chloride 500 ml @ 250 mls/hr 1X ONCE IV Last administered on 07/11/21at 03:34; Start 07/11/21 at 02:15; Stop 07/11/21 at 04:14; Status DC Cefepime HCl (Maxipime) 1 gm 1X ONCE IVP Last administered on 07/11/21at 03:20; Start 07/11/21 at 02:15; Stop 07/11/21 at 02:16; Status DC Fentanyl Citrate 30 ml @ 2.5 mls/hr CONT PRN IV SEE PROTOCOL; Start 07/11/21 at 02:15 Propofol 100 ml @ 4.002 mls/ hr CONT PRN IV PER PROTOCOL Last administered on 07/11/21at 10:07; Start 07/11/21 at 02:15 Fentanyl Citrate (Fentanyl 2ml Vial) 25 mcg PRN Q1HR PRN IV SEE COMMENTS; Start 07/11/21 at 02:15 Fentanyl Citrate (Fentanyl 2ml Vial) 50 mcg PRN Q1HR PRN IV SEE COMMENTS; Start 07/11/21 at 02:15 Chlorhexidine Gluconate (Peridex) 15 ml BID MM Last administered on 07/11/21at 09:23; Start 07/11/21 at 09:00 Morphine Sulfate (Morphine Sulfate) 2 mg PRN Q1HR PRN IV SEE COMMENTS.; Start 07/11/21 at 02:15 Morphine Sulfate (Morphine Sulfate) 4 mg PRN Q1HR PRN IV SEE COMMENTS.; Start 07/11/21 at 02:15 Insulin Human Regular (HumuLIN R VIAL) 10 unit 1X ONCE IV Last administered on 07/11/21at 03:13; Start 07/11/21 at 02:45; Stop 07/11/21 at 02:46; Status DC Furosemide (Lasix) 80 mg 1X ONCE IVP Last administered on 07/11/21at 04:09; Start 07/11/21 at 02:45; Stop 07/11/21 at 02:46; Status DC Calcium Gluconate (Calcium Gluconate) 1,000 mg 1X ONCE IVP Last administered on 07/11/21at 02:51; Start 07/11/21 at 02:45; Stop 07/11/21 at 02:46; Status DC Sodium Bicarbonate (Sodium Bicarb Adult 8.4% Syr) 50 meq 1X ONCE IV Last administered on 07/11/21at 02:55; Start 07/11/21 at 02:45; Stop 07/11/21 at 02:46; Status DC Sodium Polystyrene Sulfonate (Kayexalate) 30 gm 1X ONCE NG Last administered on 07/11/21at 04:49; Start 07/11/21 at 02:45; Stop 07/11/21 at 02:46; Status DC Albuterol Sulfate (Ventolin Neb Soln) 20 mg 1X ONCE NEB Last administered on 07/11/21at 02:45; Start 07/11/21 at 02:45; Stop 07/11/21 at 02:46; Status DC Norepinephrine Bitartrate 8 mg/ Dextrose 258 ml @ 24.962 mls/ hr 1X ONCE IV Last administered on 07/11/21at 03:25; Start 07/11/21 at 03:30; Stop 07/11/21 at 13:50; Status DC Midazolam HCl (Versed) 5 mg STK-MED ONCE .ROUTE ; Start 07/11/21 at 07:37; Stop 07/11/21 at 07:38; Status DC Midazolam HCl 100 ml @ 1 mls/hr CONT PRN IV SEE I/O RECORD; Start 07/11/21 at 07:45 Midazolam HCl (Versed) 5 mg 1X ONCE IV Last administered on 07/11/21at 09:22; Start 07/11/21 at 07:45; Stop 07/11/21 at 07:47; Status DC Norepinephrine Bitartrate 8 mg/ Dextrose 258 ml @ 24.962 mls/ hr CONT PRN IV PER PROTOCOL Last administered on 07/11/21at 10:21; Start 07/11/21 at 10:30 Active Scripts Active Zyvox (Linezolid) 600 Mg Tablet 600 Mg PO BID 7 Days Reported Multi Vitamin Daily (Multivitamin) 1 Each Tablet 1 Tab PO DAILY 30 Days Gabapentin (Gabapentin) 100 Mg Capsule 100 Mg PO DAILY Carvedilol 25 Mg Tablet 25 Mg PO BIDWMEALS Amlodipine Besylate 10 Mg Tablet 10 Mg PO DAILY Allopurinol 300 Mg Tablet 1 Tab PO DAILY Januvia (Sitagliptin Phosphate) 25 Mg Tablet 25 Mg PO DAILY Furosemide 40 Mg Tablet 1 Tab PO QODAY Furosemide 20 Mg Tablet 1 Tab PO QODAY Isosorbide Mononitrate Er (Isosorbide Mononitrate) 30 Mg Tab.er.24h 20 Mg PO BID Hydralazine Hcl 50 Mg Tablet 1 Tab PO TID Aspir 81 (Aspirin) 81 Mg Tablet.dr 1 Tab PO DAILY Omeprazole 40 Mg Capsule.dr 40 Mg PO DAILY Allergies Allergies: Coded Allergies: Penicillins (Verified Allergy, Intermediate, 02/26/16) Aqhembn-Amy-Bre Reductase Inhibitor (Verified Allergy, Intermediate, 07/05/21) lisinopril (Verified Allergy, Intermediate, COUGH, 07/05/21) naproxen (Verified Allergy, Intermediate, 07/05/21) clindamycin (Verified Allergy, Mild, Diarrhea, 07/05/21) ROS Review of System Negative for fever, chills, weight loss, shortness of breath, chest pain, indigestion, hematochezia, melena, and dysuria. Full 14-point review of systems is negative. Physical Exam Physical Examination General: Well-developed, well-nourished white male in no acute distress HEENT: Normocephalic andatraumatic. Temporal arteriespulsatile and nontender. Neck: Supple without bruit, no meningismus Musculoskeletal: Stability:see neurologic. Gait exam:see neurologic. Tone:see neurologic.Strength:see neurologic. Neurological: Mental Status:Intubated and minimally sedated. Cranial Nerves:Pupils enlarged and minimally reactive to light, no spontaneous extraocular movements. There is no facial asymmetry. All other cranial related problems are negative except as mentioned before.Reflexes:1+ and symmetric with silent plantar responses. Motor:Occasional posturing, occasional myoclonus, no withdrawal to pain. Coordination and gait:Not assessed. Sensory:Not assessed. Vitals VITALS Vital Signs Date Time Temp Pulse Resp B/P (MAP) Pulse Ox O2 Delivery O2 Flow Rate FiO2 07/11/21 13:03 91 Ventilator 07/11/21 13:00 64 25 134/58 (83) 07/11/21 12:00 97.7 97.7 07/11/21 03:50 20.0 Labs Labs Laboratory Tests Test 07/11/21 01:50 07/11/21 02:11 07/11/21 04:20 07/11/21 04:23 White Blood Count 15.4 x10^3/uL (4.0-11.0) Red Blood Count 3.63 x10^6/uL (4.30-5.70) Hemoglobin 12.0 g/dL (13.0-17.5) Hematocrit 38.8 % (39.0-53.0) Mean Corpuscular Volume 107 fL (79-100) Mean Corpuscular Hemoglobin 33 pg (25-35) Mean Corpuscular Hemoglobin Concent 31 g/dL (31-37) Red Cell Distribution Width 15.6 % (11.5-14.5) Platelet Count 186 x10^3/uL (140-400) Neutrophils (%) (Auto) 69 % (31-73) Lymphocytes (%) (Auto) 19 % (24-48) Monocytes (%) (Auto) 9 % (0-9) Eosinophils (%) (Auto) 3 % (0-3) Basophils (%) (Auto) 1 % (0-3) Neutrophils # (Auto) 10.5 x10^3/uL (1.8-7.7) Lymphocytes # (Auto) 2.9 x10^3/uL (1.0-4.8) Monocytes # (Auto) 1.4 x10^3/uL (0.0-1.1) Eosinophils # (Auto) 0.4 x10^3/uL (0.0-0.7) Basophils # (Auto) 0.1 x10^3/uL (0.0-0.2) Segmented Neutrophils % 62 % (35-66) Band Neutrophils % 5 % (0-9) Lymphocytes % 19 % (24-48) Monocytes % 9 % (0-10) Eosinophils % 3 % (0-5) Basophils % 2 % (0-3) Platelet Estimate Adequate (ADEQUATE) Prothrombin Time 14.5 SEC (11.7-14.0) Prothromb Time International Ratio 1.1 (0.8-1.1) Activated Partial Thromboplast Time 42 SEC (24-38) Sodium Level 138 mmol/L (136-145) 139 mmol/L (136-145) Potassium Level 6.7 mmol/L (3.5-5.1) 4.4 mmol/L (3.5-5.1) Chloride Level 104 mmol/L (98-107) 106 mmol/L (98-107) Carbon Dioxide Level 23 mmol/L (21-32) 27 mmol/L (21-32) Anion Gap 11 (6-14) 6 (6-14) Blood Urea Nitrogen 58 mg/dL (8-26) 59 mg/dL (8-26) Creatinine 3.7 mg/dL (0.7-1.3) 3.8 mg/dL (0.7-1.3) Estimated GFR (Cockcroft-Gault) 16.3 15.8 BUN/Creatinine Ratio 16 (6-20) Glucose Level 352 mg/dL (70-99) 169 mg/dL (70-99) Lactic Acid Level 8.1 mmol/L (0.4-2.0) 1.0 mmol/L (0.4-2.0) Calcium Level 9.3 mg/dL (8.5-10.1) 8.7 mg/dL (8.5-10.1) Phosphorus Level 6.8 mg/dL (2.6-4.7) Magnesium Level 2.7 mg/dL (1.8-2.4) Total Bilirubin 0.4 mg/dL (0.2-1.0) Aspartate Amino Transf (AST/SGOT) 31 U/L (15-37) Alanine Aminotransferase (ALT/SGPT) 34 U/L (16-63) Alkaline Phosphatase 101 U/L (46-116) Troponin I Quantitative 0.041 ng/mL (0.000-0.055) JA-Iyw-D-Type Natriuretic Peptide 85088 pg/mL (0-124) Total Protein 6.7 g/dL (6.4-8.2) Albumin 2.7 g/dL (3.4-5.0) Albumin/Globulin Ratio 0.7 (1.0-1.7) O2 Saturation 96 % (92-99) 93 % (92-99) Arterial Blood pH 7.12 (7.35-7.45) 7.25 (7.35-7.45) Arterial Blood pCO2 at Patient Temp 63 mmHg (35-46) 55 mmHg (35-46) Arterial Blood pO2 at Patient Temp 108 mmHg (65-108) 74 mmHg (65-108) Arterial Blood HCO3 20 mmol/L (21-28) 24 mmol/L (21-28) Arterial Blood Base Excess -10 mmol/L (-3-3) -4 mmol/L (-3-3) FiO2 100 Test 07/11/21 04:31 07/11/21 08:17 07/11/21 13:35 07/11/21 13:40 Urine Collection Type Unknown Urine Color Yellow Urine Clarity Cloudy Urine pH 5.5 (<5.0-8.0) Urine Specific [place] 1.015 (1.000-1.030) Urine Protein >=300 mg/dL (NEG-TRACE) Urine Glucose (UA) 100 mg/dL (NEG) Urine Ketones (Stick) Negative mg/dL (NEG) Urine Blood Trace (NEG) Urine Nitrite Negative (NEG) Urine Bilirubin Negative (NEG) Urine Urobilinogen Dipstick 1.0 mg/dL (0.2 mg/dL) Urine Leukocyte Esterase Negative (NEG) Urine RBC 11-20 /HPF (0-2) Urine WBC 11-20 /HPF (0-4) Urine Squamous Epithelial Cells Few /LPF Urine Transitional Epithelial Cells Occ /LPF Urine Amorphous Sediment Present /HPF Urine Bacteria Few /HPF (0-FEW) Urine Hyaline Casts Occasional /HPF Urine Granular Casts Few /HPF Urine Mucus Mod /LPF Urine Sperm Present /HPF O2 Saturation 89 % (92-99) Arterial Blood pH 7.25 (7.35-7.45) Arterial Blood pCO2 at Patient Temp 47 mmHg (35-46) Arterial Blood pO2 at Patient Temp 60 mmHg (65-108) Arterial Blood HCO3 20 mmol/L (21-28) Arterial Blood Base Excess -7 mmol/L (-3-3) FiO2 100 Sodium Level 140 mmol/L (136-145) Potassium Level 4.2 mmol/L (3.5-5.1) Chloride Level 105 mmol/L (98-107) Carbon Dioxide Level 25 mmol/L (21-32) Anion Gap 10 (6-14) Blood Urea Nitrogen 65 mg/dL (8-26) Creatinine 3.9 mg/dL (0.7-1.3) Estimated GFR (Cockcroft-Gault) 15.4 Glucose Level 188 mg/dL (70-99) Calcium Level 8.8 mg/dL (8.5-10.1) Glucose (Fingerstick) 195 mg/dL (70-99) Laboratory Tests Test 07/11/21 01:50 07/11/21 02:11 07/11/21 04:20 07/11/21 04:23 White Blood Count 15.4 x10^3/uL (4.0-11.0) Red Blood Count 3.63 x10^6/uL (4.30-5.70) Hemoglobin 12.0 g/dL (13.0-17.5) Hematocrit 38.8 % (39.0-53.0) Mean Corpuscular Volume 107 fL (79-100) Mean Corpuscular Hemoglobin 33 pg (25-35) Mean Corpuscular Hemoglobin Concent 31 g/dL (31-37) Red Cell Distribution Width 15.6 % (11.5-14.5) Platelet Count 186 x10^3/uL (140-400) Neutrophils (%) (Auto) 69 % (31-73) Lymphocytes (%) (Auto) 19 % (24-48) Monocytes (%) (Auto) 9 % (0-9) Eosinophils (%) (Auto) 3 % (0-3) Basophils (%) (Auto) 1 % (0-3) Neutrophils # (Auto) 10.5 x10^3/uL (1.8-7.7) Lymphocytes # (Auto) 2.9 x10^3/uL (1.0-4.8) Monocytes # (Auto) 1.4 x10^3/uL (0.0-1.1) Eosinophils # (Auto) 0.4 x10^3/uL (0.0-0.7) Basophils # (Auto) 0.1 x10^3/uL (0.0-0.2) Segmented Neutrophils % 62 % (35-66) Band Neutrophils % 5 % (0-9) Lymphocytes % 19 % (24-48) Monocytes % 9 % (0-10) Eosinophils % 3 % (0-5) Basophils % 2 % (0-3) Platelet Estimate Adequate (ADEQUATE) Prothrombin Time 14.5 SEC (11.7-14.0) Prothromb Time International Ratio 1.1 (0.8-1.1) Activated Partial Thromboplast Time 42 SEC (24-38) Sodium Level 138 mmol/L (136-145) 139 mmol/L (136-145) Potassium Level 6.7 mmol/L (3.5-5.1) 4.4 mmol/L (3.5-5.1) Chloride Level 104 mmol/L (98-107) 106 mmol/L (98-107) Carbon Dioxide Level 23 mmol/L (21-32) 27 mmol/L (21-32) Anion Gap 11 (6-14) 6 (6-14) Blood Urea Nitrogen 58 mg/dL (8-26) 59 mg/dL (8-26) Creatinine 3.7 mg/dL (0.7-1.3) 3.8 mg/dL (0.7-1.3) Estimated GFR (Cockcroft-Gault) 16.3 15.8 BUN/Creatinine Ratio 16 (6-20) Glucose Level 352 mg/dL (70-99) 169 mg/dL (70-99) Lactic Acid Level 8.1 mmol/L (0.4-2.0) 1.0 mmol/L (0.4-2.0) Calcium Level 9.3 mg/dL (8.5-10.1) 8.7 mg/dL (8.5-10.1) Phosphorus Level 6.8 mg/dL (2.6-4.7) Magnesium Level 2.7 mg/dL (1.8-2.4) Total Bilirubin 0.4 mg/dL (0.2-1.0) Aspartate Amino Transf (AST/SGOT) 31 U/L (15-37) Alanine Aminotransferase (ALT/SGPT) 34 U/L (16-63) Alkaline Phosphatase 101 U/L (46-116) Troponin I Quantitative 0.041 ng/mL (0.000-0.055) BK-Ohx-E-Type Natriuretic Peptide 25308 pg/mL (0-124) Total Protein 6.7 g/dL (6.4-8.2) Albumin 2.7 g/dL (3.4-5.0) Albumin/Globulin Ratio 0.7 (1.0-1.7) O2 Saturation 96 % (92-99) 93 % (92-99) Arterial Blood pH 7.12 (7.35-7.45) 7.25 (7.35-7.45) Arterial Blood pCO2 at Patient Temp 63 mmHg (35-46) 55 mmHg (35-46) Arterial Blood pO2 at Patient Temp 108 mmHg (65-108) 74 mmHg (65-108) Arterial Blood HCO3 20 mmol/L (21-28) 24 mmol/L (21-28) Arterial Blood Base Excess -10 mmol/L (-3-3) -4 mmol/L (-3-3) FiO2 100 Test 07/11/21 04:31 07/11/21 08:17 07/11/21 13:35 07/11/21 13:40 Urine Collection Type Unknown Urine Color Yellow Urine Clarity Cloudy Urine pH 5.5 (<5.0-8.0) Urine Specific [place] 1.015 (1.000-1.030) Urine Protein >=300 mg/dL (NEG-TRACE) Urine Glucose (UA) 100 mg/dL (NEG) Urine Ketones (Stick) Negative mg/dL (NEG) Urine Blood Trace (NEG) Urine Nitrite Negative (NEG) Urine Bilirubin Negative (NEG) Urine Urobilinogen Dipstick 1.0 mg/dL (0.2 mg/dL) Urine Leukocyte Esterase Negative (NEG) Urine RBC 11-20 /HPF (0-2) Urine WBC 11-20 /HPF (0-4) Urine Squamous Epithelial Cells Few /LPF Urine Transitional Epithelial Cells Occ /LPF Urine Amorphous Sediment Present /HPF Urine Bacteria Few /HPF (0-FEW) Urine Hyaline Casts Occasional /HPF Urine Granular Casts Few /HPF Urine Mucus Mod /LPF Urine Sperm Present /HPF O2 Saturation 89 % (92-99) Arterial Blood pH 7.25 (7.35-7.45) Arterial Blood pCO2 at Patient Temp 47 mmHg (35-46) Arterial Blood pO2 at Patient Temp 60 mmHg (65-108) Arterial Blood HCO3 20 mmol/L (21-28) Arterial Blood Base Excess -7 mmol/L (-3-3) FiO2 100 Sodium Level 140 mmol/L (136-145) Potassium Level 4.2 mmol/L (3.5-5.1) Chloride Level 105 mmol/L (98-107) Carbon Dioxide Level 25 mmol/L (21-32) Anion Gap 10 (6-14) Blood Urea Nitrogen 65 mg/dL (8-26) Creatinine 3.9 mg/dL (0.7-1.3) Estimated GFR (Cockcroft-Gault) 15.4 Glucose Level 188 mg/dL (70-99) Calcium Level 8.8 mg/dL (8.5-10.1) Glucose (Fingerstick) 195 mg/dL (70-99) Assessment/Plan Assessment/Plan Impression: Anoxic encephalopathy, 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 Thank you for letting me help with the patient's care. KAREN NDIAYE MD Jul 11, 2021 14:15
[2021-07-11] MEDS: levETIRAcetam 500 MG in IV DEXTROSE 5% 100ML 100 ML IV SCH ×2 (15:44→23:33)
--- NOTE | 2021-07-11 16:18 | NUR ---
SS following for discharge planning. SS reviewed pt chart and discussed with pt RN. Pt is from home and is currently on the vent at 100%. Pt on Propofol and Levophed. Withdrawal of care tomorrow. SS will continue to follow as needed.
--- NOTE | 2021-07-11 17:09 | CARD ---
MR#: [id number] Date of Study: 07/11/2021 Ordering Physician: ROMEO TRENT, Referring Physician: ROMEO TRENT, Tech: Peyton Cameron, [facility] APPROVED REPORT EXAM: Two-dimensional and M-mode echocardiogram with Doppler and color Doppler. Other Information Quality : AverageHR: 140bpm INDICATION s/p ARREST RISK FACTORS Hypertension Hyperlipidemia 2D DIMENSIONS IVSd1.4 (0.7-1.1cm)Aortic Root(2D)3.3 (2.0-3.7cm) LVDd6.3 (3.9-5.9cm)PWd1.3 (0.7-1.1cm) LVDs4.2 (2.5-4.0cm)FS (%) 33.9 % SV123.2 ml Aortic Valve AoV Peak Ede.155.9cm/sAoV VTI36.9cm AO Peak GR.9.7mmHgAO Mean GR.5mmHg Tricuspid Valve TR P. [id number] [id number] TR Peak [id number] LEFT VENTRICLE Limited study. Technically difficult study. The Left Ventricle is mildly dilated. There is mild con centric left ventricular hypertrophy. The systolic function is mildly impaired. The Ejection Fraction is estimated at 40 to 45%. There is mild global hypokinesis of the left ventricle. RIGHT VENTRICLE The right ventricle is not well visualized. ATRIA The left atrium is mildly dilated. The right atrium is not well visualized. The interatrial septum is intact with no evidence for an atrial septal defect or patent foramen ovale as noted on 2-D or Doppl er imaging. AORTIC VALVE The aortic valve is not well visualized. MITRAL VALVE The mitral valve is normal in structure and function. There is no evidence of mitral valve prolapse. There is no mitral valve stenosis. Doppler and color-flow analysis was not performed. TRICUSPID VALVE The tricuspid valve is not well visualized. Doppler and Color Flow revealed trace tricuspid regurgita tion with an estimated PAP of 43 mmHg. PULMONIC VALVE The pulmonic valve is not well visualized. Doppler and color-flow analysis was not performed. GREAT VESSELS The aortic root is normal in size. The IVC is dilated. PERICARDIAL EFFUSION There is no evidence of significant pericardial effusion. Critical Notification Critical Value: No <Conclusion> Limited study. Technically difficult study. The Left Ventricle is mildly dilated. The systolic function is mildly impaired. The Ejection Fraction is estimated at 40 to 45%. There is mild global hypokinesis of the left ventricle. There is mild concentric left ventricular hypertrophy. Signed by : Bravo Phillips MD Electronically Approved : 07/11/2021 17:09:18
[2021-07-11] MEDS ORDERED: levOFLOXacin PER PHARMACY. MC PRN (23:00)
[2021-07-12] VITALS (14 sets, daily range): BP systolic 114–146; BP diastolic 55–66
[2021-07-12] MEDS: PROPOFOL 100 ML IV PRN ×3 (03:45→12:30)
[2021-07-12 07:27] LABS: ALBUMIN 2.1 g/dL (3.4-5.0); CALCIUM 8.2 mg/dL (8.5-10.1); CREATININE 4.1 mg/dL (0.7-1.3); GFR 14.5; PHOSPHORUS 4.7 mg/dL (2.6-4.7)
[2021-07-12] MEDS: levETIRAcetam 500 MG in IV DEXTROSE 5% 100ML 100 ML IV SCH (07:53)
--- NOTE | 2021-07-12 08:35 | PDOC ---
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 Subjective None Objective Vital Signs Date Time Temp Pulse Resp B/P (MAP) Pulse Ox O2 Delivery O2 Flow Rate FiO2 07/12/21 07:53 92 Ventilator 07/12/21 06:00 73 22 128/57 (80) 07/12/21 04:00 98.1 98.1 Intake and Output 07/12/21 07:00 Intake Total 1425.4 ml Output Total 1525 ml Balance -99.6 ml Intake IV Total 1425.4 ml Output Urine Total 1225 ml Gastric Drainage Total 300 ml PHYSICAL EXAM On vent, no response to voice or pain Triggers ventilator PERRL, sluggish response. No spontaneous extraocular movements CN: no focal findings. Muscle tone: normal. Muscle strength: No response to pain DTR: 1+ Plantar reflex: Silent Gait: not examined in bed. Sensory exam: Not testable. Cerebellar: Not testable Review of Relevant I have reviewed the following items shay (where applicable) has been applied. Labs Laboratory Tests Test 07/11/21 01:50 07/11/21 02:11 07/11/21 04:20 07/11/21 04:23 White Blood Count 15.4 x10^3/uL (4.0-11.0) Red Blood Count 3.63 x10^6/uL (4.30-5.70) Hemoglobin 12.0 g/dL (13.0-17.5) Hematocrit 38.8 % (39.0-53.0) Mean Corpuscular Volume 107 fL (79-100) Mean Corpuscular Hemoglobin 33 pg (25-35) Mean Corpuscular Hemoglobin Concent 31 g/dL (31-37) Red Cell Distribution Width 15.6 % (11.5-14.5) Platelet Count 186 x10^3/uL (140-400) Neutrophils (%) (Auto) 69 % (31-73) Lymphocytes (%) (Auto) 19 % (24-48) Monocytes (%) (Auto) 9 % (0-9) Eosinophils (%) (Auto) 3 % (0-3) Basophils (%) (Auto) 1 % (0-3) Neutrophils # (Auto) 10.5 x10^3/uL (1.8-7.7) Lymphocytes # (Auto) 2.9 x10^3/uL (1.0-4.8) Monocytes # (Auto) 1.4 x10^3/uL (0.0-1.1) Eosinophils # (Auto) 0.4 x10^3/uL (0.0-0.7) Basophils # (Auto) 0.1 x10^3/uL (0.0-0.2) Segmented Neutrophils % 62 % (35-66) Band Neutrophils % 5 % (0-9) Lymphocytes % 19 % (24-48) Monocytes % 9 % (0-10) Eosinophils % 3 % (0-5) Basophils % 2 % (0-3) Platelet Estimate Adequate (ADEQUATE) Prothrombin Time 14.5 SEC (11.7-14.0) Prothromb Time International Ratio 1.1 (0.8-1.1) Activated Partial Thromboplast Time 42 SEC (24-38) Sodium Level 138 mmol/L (136-145) 139 mmol/L (136-145) Potassium Level 6.7 mmol/L (3.5-5.1) 4.4 mmol/L (3.5-5.1) Chloride Level 104 mmol/L (98-107) 106 mmol/L (98-107) Carbon Dioxide Level 23 mmol/L (21-32) 27 mmol/L (21-32) Anion Gap 11 (6-14) 6 (6-14) Blood Urea Nitrogen 58 mg/dL (8-26) 59 mg/dL (8-26) Creatinine 3.7 mg/dL (0.7-1.3) 3.8 mg/dL (0.7-1.3) Estimated GFR (Cockcroft-Gault) 16.3 15.8 BUN/Creatinine Ratio 16 (6-20) Glucose Level 352 mg/dL (70-99) 169 mg/dL (70-99) Lactic Acid Level 8.1 mmol/L (0.4-2.0) 1.0 mmol/L (0.4-2.0) Calcium Level 9.3 mg/dL (8.5-10.1) 8.7 mg/dL (8.5-10.1) Phosphorus Level 6.8 mg/dL (2.6-4.7) Magnesium Level 2.7 mg/dL (1.8-2.4) Total Bilirubin 0.4 mg/dL (0.2-1.0) Aspartate Amino Transf (AST/SGOT) 31 U/L (15-37) Alanine Aminotransferase (ALT/SGPT) 34 U/L (16-63) Alkaline Phosphatase 101 U/L (46-116) Troponin I Quantitative 0.041 ng/mL (0.000-0.055) OA-Bxo-L-Type Natriuretic Peptide 89995 pg/mL (0-124) Total Protein 6.7 g/dL (6.4-8.2) Albumin 2.7 g/dL (3.4-5.0) Albumin/Globulin Ratio 0.7 (1.0-1.7) O2 Saturation 96 % (92-99) 93 % (92-99) Arterial Blood pH 7.12 (7.35-7.45) 7.25 (7.35-7.45) Arterial Blood pCO2 at Patient Temp 63 mmHg (35-46) 55 mmHg (35-46) Arterial Blood pO2 at Patient Temp 108 mmHg (65-108) 74 mmHg (65-108) Arterial Blood HCO3 20 mmol/L (21-28) 24 mmol/L (21-28) Arterial Blood Base Excess -10 mmol/L (-3-3) -4 mmol/L (-3-3) FiO2 100 Test 07/11/21 04:31 07/11/21 08:17 07/11/21 13:35 07/11/21 13:40 Urine Collection Type Unknown Urine Color Yellow Urine Clarity Cloudy Urine pH 5.5 (<5.0-8.0) Urine Specific [place] 1.015 (1.000-1.030) Urine Protein >=300 mg/dL (NEG-TRACE) Urine Glucose (UA) 100 mg/dL (NEG) Urine Ketones (Stick) Negative mg/dL (NEG) Urine Blood Trace (NEG) Urine Nitrite Negative (NEG) Urine Bilirubin Negative (NEG) Urine Urobilinogen Dipstick 1.0 mg/dL (0.2 mg/dL) Urine Leukocyte Esterase Negative (NEG) Urine RBC 11-20 /HPF (0-2) Urine WBC 11-20 /HPF (0-4) Urine Squamous Epithelial Cells Few /LPF Urine Transitional Epithelial Cells Occ /LPF Urine Amorphous Sediment Present /HPF Urine Bacteria Few /HPF (0-FEW) Urine Hyaline Casts Occasional /HPF Urine Granular Casts Few /HPF Urine Mucus Mod /LPF Urine Sperm Present /HPF O2 Saturation 89 % (92-99) Arterial Blood pH 7.25 (7.35-7.45) Arterial Blood pCO2 at Patient Temp 47 mmHg (35-46) Arterial Blood pO2 at Patient Temp 60 mmHg (65-108) Arterial Blood HCO3 20 mmol/L (21-28) Arterial Blood Base Excess -7 mmol/L (-3-3) FiO2 100 Sodium Level 140 mmol/L (136-145) Potassium Level 4.2 mmol/L (3.5-5.1) Chloride Level 105 mmol/L (98-107) Carbon Dioxide Level 25 mmol/L (21-32) Anion Gap 10 (6-14) Blood Urea Nitrogen 65 mg/dL (8-26) Creatinine 3.9 mg/dL (0.7-1.3) Estimated GFR (Cockcroft-Gault) 15.4 Glucose Level 188 mg/dL (70-99) Calcium Level 8.8 mg/dL (8.5-10.1) Troponin I Quantitative 0.196 ng/mL (0.000-0.055) Glucose (Fingerstick) 195 mg/dL (70-99) Test 07/12/21 07:05 Sodium Level 140 mmol/L (136-145) Potassium Level 4.0 mmol/L (3.5-5.1) Chloride Level 105 mmol/L (98-107) Carbon Dioxide Level 26 mmol/L (21-32) Anion Gap 9 (6-14) Blood Urea Nitrogen 67 mg/dL (8-26) Creatinine 4.1 mg/dL (0.7-1.3) Estimated GFR (Cockcroft-Gault) 14.5 Glucose Level 122 mg/dL (70-99) Calcium Level 8.2 mg/dL (8.5-10.1) Phosphorus Level 4.7 mg/dL (2.6-4.7) Albumin 2.1 g/dL (3.4-5.0) Laboratory Tests Test 07/11/21 13:35 07/11/21 13:40 07/12/21 07:05 Sodium Level 140 mmol/L (136-145) 140 mmol/L (136-145) Potassium Level 4.2 mmol/L (3.5-5.1) 4.0 mmol/L (3.5-5.1) Chloride Level 105 mmol/L (98-107) 105 mmol/L (98-107) Carbon Dioxide Level 25 mmol/L (21-32) 26 mmol/L (21-32) Anion Gap 10 (6-14) 9 (6-14) Blood Urea Nitrogen 65 mg/dL (8-26) 67 mg/dL (8-26) Creatinine 3.9 mg/dL (0.7-1.3) 4.1 mg/dL (0.7-1.3) Estimated GFR (Cockcroft-Gault) 15.4 14.5 Glucose Level 188 mg/dL (70-99) 122 mg/dL (70-99) Calcium Level 8.8 mg/dL (8.5-10.1) 8.2 mg/dL (8.5-10.1) Troponin I Quantitative 0.196 ng/mL (0.000-0.055) Glucose (Fingerstick) 195 mg/dL (70-99) Phosphorus Level 4.7 mg/dL (2.6-4.7) Albumin 2.1 g/dL (3.4-5.0) Medications Current Medications Vancomycin HCl 2 gm/Sodium Chloride 500 ml @ 250 mls/hr 1X ONCE IV Last administered on 07/11/21at 03:34; Start 07/11/21 at 02:15; Stop 07/11/21 at 04:14; Status DC Cefepime HCl (Maxipime) 1 gm 1X ONCE IVP Last administered on 07/11/21at 03:20; Start 07/11/21 at 02:15; Stop 07/11/21 at 02:16; Status DC Fentanyl Citrate 30 ml @ 2.5 mls/hr CONT PRN IV SEE PROTOCOL; Start 07/11/21 at 02:15 Propofol 100 ml @ 4.002 mls/ hr CONT PRN IV PER PROTOCOL Last administered on 07/12/21at 07:53; Start 07/11/21 at 02:15 Fentanyl Citrate (Fentanyl 2ml Vial) 25 mcg PRN Q1HR PRN IV SEE COMMENTS; Start 07/11/21 at 02:15 Fentanyl Citrate (Fentanyl 2ml Vial) 50 mcg PRN Q1HR PRN IV SEE COMMENTS; Start 07/11/21 at 02:15 Chlorhexidine Gluconate (Peridex) 15 ml BID MM Last administered on 07/11/21at 20:19; Start 07/11/21 at 09:00; Stop 07/12/21 at 07:10; Status DC Morphine Sulfate (Morphine Sulfate) 2 mg PRN Q1HR PRN IV SEE COMMENTS.; Start 07/11/21 at 02:15 Morphine Sulfate (Morphine Sulfate) 4 mg PRN Q1HR PRN IV SEE COMMENTS.; Start 07/11/21 at 02:15 Insulin Human Regular (HumuLIN R VIAL) 10 unit 1X ONCE IV Last administered on 07/11/21at 03:13; Start 07/11/21 at 02:45; Stop 07/11/21 at 02:46; Status DC Furosemide (Lasix) 80 mg 1X ONCE IVP Last administered on 07/11/21at 04:09; Start 07/11/21 at 02:45; Stop 07/11/21 at 02:46; Status DC Calcium Gluconate (Calcium Gluconate) 1,000 mg 1X ONCE IVP Last administered on 07/11/21at 02:51; Start 07/11/21 at 02:45; Stop 07/11/21 at 02:46; Status DC Sodium Bicarbonate (Sodium Bicarb Adult 8.4% Syr) 50 meq 1X ONCE IV Last a dministered on 07/11/21at 02:55; Start 07/11/21 at 02:45; Stop 07/11/21 at 02:46; Status DC Sodium Polystyrene Sulfonate (Kayexalate) 30 gm 1X ONCE NG Last administered on 07/11/21at 04:49; Start 07/11/21 at 02:45; Stop 07/11/21 at 02:46; Status DC Albuterol Sulfate (Ventolin Neb Soln) 20 mg 1X ONCE NEB Last administered on 07/11/21at 02:45; Start 07/11/21 at 02:45; Stop 07/11/21 at 02:46; Status DC Norepinephrine Bitartrate 8 mg/ Dextrose 258 ml @ 24.962 mls/ hr 1X ONCE IV Last administered on 07/11/21at 03:25; Start 07/11/21 at 03:30; Stop 07/11/21 at 13:50; Status DC Midazolam HCl (Versed) 5 mg STK-MED ONCE .ROUTE ; Start 07/11/21 at 07:37; Stop 07/11/21 at 07:38; Status DC Midazolam HCl 100 ml @ 1 mls/hr CONT PRN IV SEE I/O RECORD; Start 07/11/21 at 07:45 Midazolam HCl (Versed) 5 mg 1X ONCE IV Last administered on 07/11/21at 09:22; Start 07/11/21 at 07:45; Stop 07/11/21 at 07:47; Status DC Norepinephrine Bitartrate 8 mg/ Dextrose 258 ml @ 24.962 mls/ hr CONT PRN IV PER PROTOCOL Last administered on 07/11/21at 10:21; Start 07/11/21 at 10:30 Levetiracetam 500 mg/Dextrose 105 ml @ 420 mls/hr Q12HR IV Last administered o n 07/12/21at 07:53; Start 07/11/21 at 15:00 Sodium Bicarbonate (Sodium Bicarb Adult 8.4% Syr) 50 meq STK-MED ONCE .ROUTE ; Start 07/11/21 at 09:00; Stop 07/11/21 at 16:23; Status DC Epinephrine HCl (EPINEPHrine SYRINGE) 3 mg STK-MED ONCE .ROUTE ; Start 07/11/21 at 09:00; Stop 07/11/21 at 16:23; Status DC Calcium Chloride (Calcium Chloride) 1,000 mg STK-MED ONCE .ROUTE ; Start 06/14 at 09:00; Stop 07/11/21 at 16:23; Status DC Atropine Sulfate (ATROPINE 1mg SYRINGE) 1 mg STK-MED ONCE .ROUTE ; Start 07/11 at 09:00; Stop 07/11/21 at 16:23; Status DC Levofloxacin/ Dextrose (Levaquin Per Pharmacy) 1 each PRN DAILY PRN MC SEE COM MENTS; Start 07/11/21 at 23:00 Levofloxacin/ Dextrose 150 ml @ 100 mls/hr ONCE ONCE IV Last administered on 07/12/21at 00:11; Start 07/11/21 at 23:30; Stop 07/12/21 at 00:59; Status DC Levofloxacin/ Dextrose 100 ml @ 100 mls/hr Q48H IV ; Start 07/13/21 at 21:00 Active Scripts Active Zyvox (Linezolid) 600 Mg Tablet 600 Mg PO BID 7 Days Reported Multi Vitamin Daily (Multivitamin) 1 Each Tablet 1 Tab PO DAILY 30 Days Gabapentin (Gabapentin) 100 Mg Capsule 100 Mg PO DAILY Carvedilol 25 Mg Tablet 25 Mg PO BIDWMEALS Amlodipine Besylate 10 Mg Tablet 10 Mg PO DAILY Allopurinol 300 Mg Tablet 1 Tab PO DAILY Januvia (Sitagliptin Phosphate) 25 Mg Tablet 25 Mg PO DAILY Furosemide 40 Mg Tablet 1 Tab PO QODAY Furosemide 20 Mg Tablet 1 Tab PO QODAY Isosorbide Mononitrate Er (Isosorbide Mononitrate) 30 Mg Tab.er.24h 20 Mg PO BID Hydralazine Hcl 50 Mg Tablet 1 Tab PO TID Aspir 81 (Aspirin) 81 Mg Tablet. 1 Tab PO DAILY Omeprazole 40 Mg Capsule.dr 40 Mg PO DAILY Vitals/I & O Vital Sign - Last 24 Hours 07/11/21 07/11/21 07/11/21 07/11/21 09:00 10:00 10:00 11:00 Pulse 59 61 62 Resp 20 19 20 B/P (MAP) 110/50 (70) 140/62 (88) 114/55 (74) Pulse Ox 90 91 94 84 O2 Delivery Ventilator Ventilator Ventilator Ventilator 07/11/21 07/11/21 07/11/21 07/11/21 12:00 12:00 13:00 13:03 Temp 97.7 97.7 Pulse 64 64 Resp 27 25 B/P (MAP) 132/60 (84) 134/58 (83) Pulse Ox 89 90 91 O2 Delivery Mechanical Ventilator Ventilator Ventilator Ventilator 07/11/21 07/11/21 07/11/21 07/11/21 14:00 15:00 16:00 16:00 Temp 97.6 97.6 Pulse 36 66 66 Resp 36 30 28 B/P (MAP) 148/65 (92) 139/67 (91) 142/67 (92) Pulse Ox 91 91 91 O2 Delivery Ventilator Ventilator Mechanical Ventilator Ventilator 07/11/21 07/11/21 07/11/21 07/11/21 16:15 17:00 18:00 19:00 Pulse 68 69 67 Resp B/P (MAP) 137/65 (89) 146/62 (90) 141/60 (87) Pulse Ox 92 91 92 92 O2 Delivery Ventilator Ventilator Ventilator Ventilator 07/11/21 07/11/21 07/11/21 07/11/21 19:30 19:30 19:45 20:00 Temp 98.5 98.5 Pulse 67 B/P (MAP) 137/58 (84) 139/61 (87) 135/57 (83) Pulse Ox 92 O2 Delivery Mechanical Ventilator Ventilator 07/11/21 07/11/21 07/11/21 07/11/21 20:15 20:45 20:47 21:00 Pulse 67 B/P (MAP) 125/57 (79) 121/52 (75) 119/49 (72) Pulse Ox 93 94 O2 Delivery Ventilator Ventilator 07/11/21 07/11/21 07/11/21 07/11/21 21:45 22:00 23:00 23:15 Pulse 67 66 B/P (MAP) 110/46 (67) 109/49 (69) 109/46 (67) 111/47 (68) Pulse Ox 94 95 O2 Delivery Ventilator Ventilator 07/11/21 07/12/21 07/12/21 07/12/21 23:30 00:00 00:01 01:00 Temp 99.0 99.0 Pulse 68 70 Resp B/P (MAP) 114/56 (75) 116/57 (76) Pulse Ox 94 93 93 O2 Delivery Ventilator Mechanical Ventilator Ventilator Ventilator 07/12/21 07/12/21 07/12/21 07/12/21 02:00 02:24 03:00 03:30 Pulse 69 70 Resp B/P (MAP) 115/55 (75) 118/57 (77) Pulse Ox 93 92 92 O2 Delivery Ventilator Ventilator Ventilator Mechanical Ventilator 07/12/21 07/12/21 07/12/21 07/12/21 04:00 05:00 05:29 06:00 Temp 98.1 98.1 Pulse 71 72 73 Resp 20 21 22 B/P (MAP) 119/59 (79) 123/58 (79) 128/57 (80) Pulse Ox 90 91 90 90 O2 Delivery Ventilator Ventilator Ventilator Ventilator 07/12/21 07:53 Pulse Ox 92 O2 Delivery Ventilator Intake and Output 07/11/21 07/11/21 07/12/21 15:00 23:00 07:00 Intake Total 250 ml 837.4 ml 338 ml Output Total 380 ml 745 ml 400 ml Balance -130 ml 92.4 ml -62 ml Justicifation of Admission Dx: Justifications for Admission: Justification of Admission Dx: N/A KAREN NDIAYE MD Jul 12, 2021 08:34
--- NOTE | 2021-07-12 09:20 | PDOC ---
PULMONARY PROGRESS NOTES DATE: 07/12/21 TIME: 09:17 Subjective Remains intubated, sedated myoclonic seizures paradoxical breathing Vitals Vital Signs Date Time Temp Pulse Resp B/P (MAP) Pulse Ox O2 Delivery O2 Flow Rate FiO2 07/12/21 07:53 92 Ventilator 07/12/21 06:00 73 22 128/57 (80) 07/12/21 04:00 98.1 98.1 Lungs: Other (rhonchi) Cardiovascular: S1, S2 Abdomen: Soft Extremities: Other Skin: Warm Labs Laboratory Tests Test 07/11/21 01:50 07/11/21 02:11 07/11/21 04:20 07/11/21 04:23 White Blood Count 15.4 x10^3/uL (4.0-11.0) Red Blood Count 3.63 x10^6/uL (4.30-5.70) Hemoglobin 12.0 g/dL (13.0-17.5) Hematocrit 38.8 % (39.0-53.0) Mean Corpuscular Volume 107 fL (79-100) Mean Corpuscular Hemoglobin 33 pg (25-35) Mean Corpuscular Hemoglobin Concent 31 g/dL (31-37) Red Cell Distribution Width 15.6 % (11.5-14.5) Platelet Count 186 x10^3/uL (140-400) Neutrophils (%) (Auto) 69 % (31-73) Lymphocytes (%) (Auto) 19 % (24-48) Monocytes (%) (Auto) 9 % (0-9) Eosinophils (%) (Auto) 3 % (0-3) Basophils (%) (Auto) 1 % (0-3) Neutrophils # (Auto) 10.5 x10^3/uL (1.8-7.7) Lymphocytes # (Auto) 2.9 x10^3/uL (1.0-4.8) Monocytes # (Auto) 1.4 x10^3/uL (0.0-1.1) Eosinophils # (Auto) 0.4 x10^3/uL (0.0-0.7) Basophils # (Auto) 0.1 x10^3/uL (0.0-0.2) Segmented Neutrophils % 62 % (35-66) Band Neutrophils % 5 % (0-9) Lymphocytes % 19 % (24-48) Monocytes % 9 % (0-10) Eosinophils % 3 % (0-5) Basophils % 2 % (0-3) Platelet Estimate Adequate (ADEQUATE) Prothrombin Time 14.5 SEC (11.7-14.0) Prothromb Time International Ratio 1.1 (0.8-1.1) Activated Partial Thromboplast Time 42 SEC (24-38) Sodium Level 138 mmol/L (136-145) 139 mmol/L (136-145) Potassium Level 6.7 mmol/L (3.5-5.1) 4.4 mmol/L (3.5-5.1) Chloride Level 104 mmol/L (98-107) 106 mmol/L (98-107) Carbon Dioxide Level 23 mmol/L (21-32) 27 mmol/L (21-32) Anion Gap 11 (6-14) 6 (6-14) Blood Urea Nitrogen 58 mg/dL (8-26) 59 mg/dL (8-26) Creatinine 3.7 mg/dL (0.7-1.3) 3.8 mg/dL (0.7-1.3) Estimated GFR (Cockcroft-Gault) 16.3 15.8 BUN/Creatinine Ratio 16 (6-20) Glucose Level 352 mg/dL (70-99) 169 mg/dL (70-99) Lactic Acid Level 8.1 mmol/L (0.4-2.0) 1.0 mmol/L (0.4-2.0) Calcium Level 9.3 mg/dL (8.5-10.1) 8.7 mg/dL (8.5-10.1) Phosphorus Level 6.8 mg/dL (2.6-4.7) Magnesium Level 2.7 mg/dL (1.8-2.4) Total Bilirubin 0.4 mg/dL (0.2-1.0) Aspartate Amino Transf (AST/SGOT) 31 U/L (15-37) Alanine Aminotransferase (ALT/SGPT) 34 U/L (16-63) Alkaline Phosphatase 101 U/L (46-116) Troponin I Quantitative 0.041 ng/mL (0.000-0.055) LP-Vjp-X-Type Natriuretic Peptide 54898 pg/mL (0-124) Total Protein 6.7 g/dL (6.4-8.2) Albumin 2.7 g/dL (3.4-5.0) Albumin/Globulin Ratio 0.7 (1.0-1.7) O2 Saturation 96 % (92-99) 93 % (92-99) Arterial Blood pH 7.12 (7.35-7.45) 7.25 (7.35-7.45) Arterial Blood pCO2 at Patient Temp 63 mmHg (35-46) 55 mmHg (35-46) Arterial Blood pO2 at Patient Temp 108 mmHg (65-108) 74 mmHg (65-108) Arterial Blood HCO3 20 mmol/L (21-28) 24 mmol/L (21-28) Arterial Blood Base Excess -10 mmol/L (-3-3) -4 mmol/L (-3-3) FiO2 100 Test 07/11/21 04:31 07/11/21 08:17 07/11/21 13:35 07/11/21 13:40 Urine Collection Type Unknown Urine Color Yellow Urine Clarity Cloudy Urine pH 5.5 (<5.0-8.0) Urine Specific [place] 1.015 (1.000-1.030) Urine Protein >=300 mg/dL (NEG-TRACE) Urine Glucose (UA) 100 mg/dL (NEG) Urine Ketones (Stick) Negative mg/dL (NEG) Urine Blood Trace (NEG) Urine Nitrite Negative (NEG) Urine Bilirubin Negative (NEG) Urine Urobilinogen Dipstick 1.0 mg/dL (0.2 mg/dL) Urine Leukocyte Esterase Negative (NEG) Urine RBC 11-20 /HPF (0-2) Urine WBC 11-20 /HPF (0-4) Urine Squamous Epithelial Cells Few /LPF Urine Transitional Epithelial Cells Occ /LPF Urine Amorphous Sediment Present /HPF Urine Bacteria Few /HPF (0-FEW) Urine Hyaline Casts Occasional /HPF Urine Granular Casts Few /HPF Urine Mucus Mod /LPF Urine Sperm Present /HPF O2 Saturation 89 % (92-99) Arterial Blood pH 7.25 (7.35-7.45) Arterial Blood pCO2 at Patient Temp 47 mmHg (35-46) Arterial Blood pO2 at Patient Temp 60 mmHg (65-108) Arterial Blood HCO3 20 mmol/L (21-28) Arterial Blood Base Excess -7 mmol/L (-3-3) FiO2 100 Sodium Level 140 mmol/L (136-145) Potassium Level 4.2 mmol/L (3.5-5.1) Chloride Level 105 mmol/L (98-107) Carbon Dioxide Level 25 mmol/L (21-32) Anion Gap 10 (6-14) Blood Urea Nitrogen 65 mg/dL (8-26) Creatinine 3.9 mg/dL (0.7-1.3) Estimated GFR (Cockcroft-Gault) 15.4 Glucose Level 188 mg/dL (70-99) Calcium Level 8.8 mg/dL (8.5-10.1) Troponin I Quantitative 0.196 ng/mL (0.000-0.055) Glucose (Fingerstick) 195 mg/dL (70-99) Test 07/12/21 07:05 Sodium Level 140 mmol/L (136-145) Potassium Level 4.0 mmol/L (3.5-5.1) Chloride Level 105 mmol/L (98-107) Carbon Dioxide Level 26 mmol/L (21-32) Anion Gap 9 (6-14) Blood Urea Nitrogen 67 mg/dL (8-26) Creatinine 4.1 mg/dL (0.7-1.3) Estimated GFR (Cockcroft-Gault) 14.5 Glucose Level 122 mg/dL (70-99) Calcium Level 8.2 mg/dL (8.5-10.1) Phosphorus Level 4.7 mg/dL (2.6-4.7) Albumin 2.1 g/dL (3.4-5.0) Laboratory Tests Test 07/11/21 13:35 07/11/21 13:40 07/12/21 07:05 Sodium Level 140 mmol/L (136-145) 140 mmol/L (136-145) Potassium Level 4.2 mmol/L (3.5-5.1) 4.0 mmol/L (3.5-5.1) Chloride Level 105 mmol/L (98-107) 105 mmol/L (98-107) Carbon Dioxide Level 25 mmol/L (21-32) 26 mmol/L (21-32) Anion Gap 10 (6-14) 9 (6-14) Blood Urea Nitrogen 65 mg/dL (8-26) 67 mg/dL (8-26) Creatinine 3.9 mg/dL (0.7-1.3) 4.1 mg/dL (0.7-1.3) Estimated GFR (Cockcroft-Gault) 15.4 14.5 Glucose Level 188 mg/dL (70-99) 122 mg/dL (70-99) Calcium Level 8.8 mg/dL (8.5-10.1) 8.2 mg/dL (8.5-10.1) Troponin I Quantitative 0.196 ng/mL (0.000-0.055) Glucose (Fingerstick) 195 mg/dL (70-99) Phosphorus Level 4.7 mg/dL (2.6-4.7) Albumin 2.1 g/dL (3.4-5.0) Medications Active Scripts Medications Dose Route/Sig Max Daily Dose Days Date Category Zyvox (Linezolid) 600 Mg Tablet 600 Mg PO BID 7 07/08/21 Rx Multi Vitamin Daily (Multivitamin) 1 Each Tablet 1 Tab PO DAILY 30 07/06/21 Reported Gabapentin (Gabapentin) 100 Mg Capsule 100 Mg PO DAILY 07/06/21 Reported Carvedilol 25 Mg Tablet 25 Mg PO BIDWMEALS 07/06/21 Reported Amlodipine Besylate 10 Mg Tablet 10 Mg PO DAILY 07/06/21 Reported Allopurinol 300 Mg Tablet 1 Tab PO DAILY 07/06/21 Reported Januvia (Sitagliptin Phosphate) 25 Mg Tablet 25 Mg PO DAILY 07/06/21 Reported Furosemide 40 Mg Tablet 1 Tab PO QODAY 07/06/21 Reported Furosemide 20 Mg Tablet 1 Tab PO QODAY 07/06/21 Reported Isosorbide Mononitrate Er (Isosorbide Mononitrate) 30 Mg Tab.er.24h 20 Mg PO BID 07/06/21 Reported Hydralazine Hcl 50 Mg Tablet 1 Tab PO TID 07/06/21 Reported Aspir 81 (Aspirin) 81 Mg Tablet. 1 Tab PO DAILY 02/26/16 Reported Omeprazole 40 Mg Capsule. 40 Mg PO DAILY 02/26/16 Reported Impression . 1. Acute hypoxic and hypercapnic respiratory failure secondary to out of hospital cardiac arrest, initially was pulseless electrical activity arrest in the field and then asystole in the Emergency Department, difficult to determine the exact duration of total advanced cardiovascular life support protocol, but I am assuming at least 25-30 minutes. 2. Possible non-ST elevation myocardial infarction. 3. Abnormal CT chest with extensive bilateral infiltrates, suspect aspiration pneumonia. 4. Leukocytosis. 5. Acute kidney injury. 6. Lactic acidosis post-cardiac arrest, now resolved. 7. No significant tobacco history. 8. The patient's COVID status is fully vaccinated. In fact, he received a booster recently. Plan . RECOMMENDATIONS: 1. Continue present vent support. 2. prn vasopressor support. 3. anoxic encephalopathy / anoxic myoclonic seizures 4. Follow Cardiology recommendation. 5. Follow Renal recommendations. 6. Empiric antibiotics. 7. DVT and stress ulcer prophylaxis. 8. d/w RN/ Family to withdraw care today palliative protocol SABINA TURPIN MD Jul 12, 2021 09:20
--- NOTE | 2021-07-12 09:48 | PDOC ---
JIMMY ABRAMS PROPELLANT CHARGE LOADER 07/12/21 0948: CARDIO Progress Notes Date and Time Date of Service 07/12/2021 Time of Evaluation 0850 Subjective Subjective: Other (intubated) Vitals Vitals Vital Signs Date Time Temp Pulse Resp B/P (MAP) Pulse Ox O2 Delivery O2 Flow Rate FiO2 07/12/21 07:53 92 Ventilator 07/12/21 06:00 73 22 128/57 (80) 07/12/21 04:00 98.1 98.1 Weight Weight [ ] Input and Output Intake and Output Intake and Output 07/12/21 07:00 Intake Total 1425.4 ml Output Total 1525 ml Balance -99.6 ml Intake IV Total 1425.4 ml Output Urine Total 1225 ml Gastric Drainage Total 300 ml Laboratory Labs Laboratory Tests Test 07/11/21 13:35 07/11/21 13:40 07/12/21 07:05 Sodium Level 140 mmol/L (136-145) 140 mmol/L (136-145) Potassium Level 4.2 mmol/L (3.5-5.1) 4.0 mmol/L (3.5-5.1) Chloride Level 105 mmol/L (98-107) 105 mmol/L (98-107) Carbon Dioxide Level 25 mmol/L (21-32) 26 mmol/L (21-32) Anion Gap 10 (6-14) 9 (6-14) Blood Urea Nitrogen 65 mg/dL (8-26) 67 mg/dL (8-26) Creatinine 3.9 mg/dL (0.7-1.3) 4.1 mg/dL (0.7-1.3) Estimated GFR (Cockcroft-Gault) 15.4 14.5 Glucose Level 188 mg/dL (70-99) 122 mg/dL (70-99) Calcium Level 8.8 mg/dL (8.5-10.1) 8.2 mg/dL (8.5-10.1) Troponin I Quantitative 0.196 ng/mL (0.000-0.055) Glucose (Fingerstick) 195 mg/dL (70-99) Phosphorus Level 4.7 mg/dL (2.6-4.7) Albumin 2.1 g/dL (3.4-5.0) Microbiology Micro Microbiology 07/11/21 Urine Culture - Final, Complete Physical Exam HEENT: Neck Supple W Full Motion Chest: Symmetric LUNGS: Other (intubated with mechanical vent) Heart: RRR (SR) Abdomen: Other (obese) Extremities: Other (anasarca) Neurology: other (unresponsive) Assessment Assessment 1. Acute respiratory failure 2. OSH PEA arrest, asystole in ED. no ventricular arrhythmias or arrhythmias on tele. 3. JEFF on CKD 4. Acute on chronic diastolic CHF; recent echo with preserved LV systolic function. Follows with [facility] cardiology. 5. Leukocytosis, lactic acidosis, shock 6. H/o hypertension; presently hypotensive on low-dose Levophed 7. Hyperlipidemia 8. Diabetes, II 9. Anoxic encephalopathy 10. Cardiomyopathy: EF at 40-45% Recommendations Per staff family is transitioning to comfort care today Will sign off Justicifation of Admission Dx: Justifications for Admission: Justification of Admission Dx: N/A DAVID LOCO MD 07/12/21 1528: CARDIO Progress Notes Assessment Assessment Patient seen and evaluated. I agree with our nurse practitioners assessment and plan. Acute respiratory failure. As per pulmonary. OSH PEA arrest, asystole in ED. no ventricular arrhythmias or arrhythmias on tele. JEFF on CKD Acute on chronic diastolic CHF; recent echo with preserved LV systolic function. Follows with [facility] cardiology. Leukocytosis, lactic acidosis, shock Hypotensive on low-dose Levophed Hyperlipidemia Diabetes, II Anoxic encephalopathy Cardiomyopathy: EF at 40-45% JIMMY ABRAMS APRN Jul 12, 2021 09:48 DAVID LOCO MD Jul 12, 2021 15:28
--- NOTE | 2021-07-12 10:05 | PDOC ---
DATE OF SERVICE DATE: 07/12/21 TIME: 09:58 SUBJECTIVE ROS Remains intubated, sedated myoclonic seizures paradoxical breathing OBJECTIVE Vital Signs Vital Signs Date Time Temp Pulse Resp B/P (MAP) Pulse Ox O2 Delivery O2 Flow Rate FiO2 07/12/21 07:53 92 Ventilator 07/12/21 06:00 73 22 128/57 (80) 07/12/21 04:00 98.1 98.1 I & 0 Intake and Output 07/12/21 07:00 Intake Total 1425.4 ml Output Total 1525 ml Balance -99.6 ml Intake IV Total 1425.4 ml Output Urine Total 1225 ml Gastric Drainage Total 300 ml PHYSICAL EXAM Physical Exam GENERAL: Intubated, on vent , sedated HEENT: Normocephalic, atraumatic. Anicteric. NECK: Supple, LUNGS: decreased at bases, Intubated HEART: S1, S2. ABDOMEN: Soft, Obese nontender Bowel sounds present. EXTREMITIES: Bilateral lower extremity edema ++, DERM: Chronic changes of CVI NEUROLOGIC: - sedated, on vent, some facial twitching+ KRISTY rod, DIAGNOSIS/ASSESSMENT Assessment & Plan JEFF on CKD - ATN ; 2/2 Cardiac arrest / Cardiorenal Had extensive discussion with daughters at bedside yesterday - EMERY WHEEL MOLDER not initiated per family's decision based on his clinical condition and patients wishes CKD stage 4 stage IV with baseline GFR anywhere from 17-20 depending on fluid status- stable renal function , close to his baseline, Non Oliguric He follows with Dr Jackson .He has been aware of his proximity to needing dialysis per our disucssion earlier this week . But he reported that he is not ready to commit to the same. Acute hypoxic and hypercapnic respiratory failure secondary to out of hospital cardiac arrest, initially was pulseless electrical activity arrest in the field and then asystole in the Emergency Department Possible non-ST elevation myocardial infarction. Abnormal CT chest with extensive bilateral infiltrates, suspect aspiration pneumonia. Lactic acidosis post-cardiac arrest, now resolved. Anoxic encephalopathy / anoxic myoclonic seizures Family plans to withdraw care today COMMENT/RELEVANT DATA Meds Current Medications Medications (Trade) Dose Ordered Sig/Kory Start Time Stop Time Status Last Admin Dose Admin Albuterol Sulfate (Ventolin Neb Soln) 20 mg 1X ONCE 07/11/21 02:45 07/11/21 02:46 DC 07/11/21 02:45 20 MG Atropine Sulfate (ATROPINE 1mg SYRINGE) 1 mg STK-MED ONCE 07/11/21 09:00 07/11/21 16:23 DC Calcium Chloride (Calcium Chloride) 1,000 mg STK-MED ONCE 07/11/21 09:00 07/11/21 16:23 DC Calcium Gluconate (Calcium Gluconate) 1,000 mg 1X ONCE 07/11/21 02:45 07/11/21 02:46 DC 07/11/21 02:51 1,000 MG Cefepime HCl (Maxipime) 1 gm 1X ONCE 07/11/21 02:15 07/11/21 02:16 DC 07/11/21 03:20 1 GM Chlorhexidine Gluconate (Peridex) 15 ml BID 07/11/21 09:00 07/12/21 07:10 DC 07/11/21 20:19 15 ML Epinephrine HCl (EPINEPHrine SYRINGE) 3 mg STK-MED ONCE 07/11/21 09:00 07/11/21 16:23 DC Fentanyl Citrate (Fentanyl 2ml Vial) 50 mcg PRN Q1HR PRN 07/11/21 02:15 Furosemide (Lasix) 80 mg 1X ONCE 07/11/21 02:45 07/11/21 02:46 DC 07/11/21 04:09 80 MG Insulin Human Regular (HumuLIN R VIAL) 10 unit 1X ONCE 07/11/21 02:45 07/11/21 02:46 DC 07/11/21 03:13 10 UNIT Levetiracetam 500 mg/Dextrose 105 ml @ 420 mls/hr Q12HR 07/11/21 15:00 07/12/21 07:53 420 MLS/HR Levofloxacin/ Dextrose 100 ml @ 100 mls/hr Q48H 07/13/21 21:00 Levofloxacin/ Dextrose (Levaquin Per Pharmacy) 1 each PRN DAILY PRN 07/11/21 23:00 Midazolam HCl (Versed) 5 mg 1X ONCE 07/11/21 07:45 07/11/21 07:47 DC 07/11/21 09:22 5 MG Morphine Sulfate (Morphine Sulfate) 4 mg PRN Q1HR PRN 07/11/21 02:15 Norepinephrine Bitartrate 8 mg/ Dextrose 258 ml @ 24.962 mls/ hr CONT PRN 07/11/21 10:30 07/11/21 10:21 48.4 MLS/HR Propofol 100 ml @ 4.002 mls/ hr CONT PRN 07/11/21 02:15 07/12/21 07:53 4.002 MLS/HR Sodium Polystyrene Sulfonate (Kayexalate) 30 gm 1X ONCE 07/11/21 02:45 07/11/21 02:46 DC 07/11/21 04:49 30 GM Sodium Bicarbonate (Sodium Bicarb Adult 8.4% Syr) 50 meq STK-MED ONCE 07/11/21 09:00 07/11/21 16:23 DC Vancomycin HCl 2 gm/Sodium Chloride 500 ml @ 250 mls/hr 1X ONCE 07/11/21 02:15 07/11/21 04:14 DC 07/11/21 03:34 250 MLS/HR Lab Laboratory Tests Test 07/11/21 13:35 07/11/21 13:40 07/12/21 07:05 Sodium Level 140 mmol/L (136-145) 140 mmol/L (136-145) Potassium Level 4.2 mmol/L (3.5-5.1) 4.0 mmol/L (3.5-5.1) Chloride Level 105 mmol/L (98-107) 105 mmol/L (98-107) Carbon Dioxide Level 25 mmol/L (21-32) 26 mmol/L (21-32) Anion Gap 10 (6-14) 9 (6-14) Blood Urea Nitrogen 65 mg/dL (8-26) 67 mg/dL (8-26) Creatinine 3.9 mg/dL (0.7-1.3) 4.1 mg/dL (0.7-1.3) Estimated GFR (Cockcroft-Gault) 15.4 14.5 Glucose Level 188 mg/dL (70-99) 122 mg/dL (70-99) Calcium Level 8.8 mg/dL (8.5-10.1) 8.2 mg/dL (8.5-10.1) Troponin I Quantitative 0.196 ng/mL (0.000-0.055) Glucose (Fingerstick) 195 mg/dL (70-99) Phosphorus Level 4.7 mg/dL (2.6-4.7) Albumin 2.1 g/dL (3.4-5.0) Results All relevant outside records, renal labs, imaging studies, telemetry/EKG's were reviewed. Justicifation of Admission Dx: Justifications for Admission: Justification of Admission Dx: N/A MEAGAN JACOBO MD Jul 12, 2021 10:05
[2021-07-12] MEDS ORDERED: IV NORMAL SALINE 1000ML BAG 1,000 ML IV SCH (10:45)
[2021-07-12] MEDS ORDERED: MORPHINE SULFATE 30 ML IV PRN (10:45)
[2021-07-12] MEDS ORDERED: NALOXONE 0.4 MG/ML VIAL. IV PRN (10:45)
[2021-07-12] MEDS ORDERED: MIDAZOLAM HCL/PF 5 MG/5 ML VIAL. IV PRN (10:45)
--- NOTE | 2021-07-12 12:48 | PDOC ---
[employer] PROGRESS NOTE Date of Service DOS: DATE: 07/12/21 TIME: 12:47 Chief Complaint Chief Complaint Cardiac arrest End-stage renal disease CHF, HTN History of Present Illness History of Present Illness 07/12/2021 Patient seen and examined in the ICU Family members are here the plan is to go ahead and extubate this afternoon Prognosis terminal Vitals/I&O Vitals/I&O: Vital Signs Date Time Temp Pulse Resp B/P (MAP) Pulse Ox O2 Delivery O2 Flow Rate FiO2 07/12/21 11:43 94 Ventilator 07/12/21 06:00 73 22 128/57 (80) 07/12/21 04:00 98.1 98.1 I & O 07/11/21 07/11/21 07/12/21 15:00 23:00 07:00 Intake Total 250 ml 837.4 ml 338 ml Output Total 380 ml 745 ml 400 ml Balance -130 ml 92.4 ml -62 ml Physical Exam General: Other (sedated) Heart: Regular rate Lungs: Other (rhonchi) Abdomen: Other (obese) Extremities: Other (1+ bilateral LE edema ) Skin: No significant lesion Labs Labs: Laboratory Tests Test 07/11/21 13:35 07/11/21 13:40 07/12/21 07:05 Sodium Level 140 mmol/L (136-145) 140 mmol/L (136-145) Potassium Level 4.2 mmol/L (3.5-5.1) 4.0 mmol/L (3.5-5.1) Chloride Level 105 mmol/L (98-107) 105 mmol/L (98-107) Carbon Dioxide Level 25 mmol/L (21-32) 26 mmol/L (21-32) Anion Gap 10 (6-14) 9 (6-14) Blood Urea Nitrogen 65 mg/dL (8-26) 67 mg/dL (8-26) Creatinine 3.9 mg/dL (0.7-1.3) 4.1 mg/dL (0.7-1.3) Estimated GFR (Cockcroft-Gault) 15.4 14.5 Glucose Level 188 mg/dL (70-99) 122 mg/dL (70-99) Calcium Level 8.8 mg/dL (8.5-10.1) 8.2 mg/dL (8.5-10.1) Troponin I Quantitative 0.196 ng/mL (0.000-0.055) Glucose (Fingerstick) 195 mg/dL (70-99) Phosphorus Level 4.7 mg/dL (2.6-4.7) Albumin 2.1 g/dL (3.4-5.0) Assessment and Plan Assessmemt and Plan Problems Medical Problems: (1) ARDS (adult respiratory distress syndrome) Status: Acute (2) Cardiac arrest Status: Acute (3) ESRD (end stage renal disease) Status: Acute (4) Heart failure Status: Acute (5) Hyperkalemia Status: Acute (6) Sepsis with acute hypoxic respiratory failure Status Plan Family would like to extubate this afternoon with comfort care prognosis terminal Comment Review of Relevant I have reviewed the following items shay (where applicable) has been applied. Medications: Current Medications Medications (Trade) Dose Ordered Sig/Kory Route PRN Reason Start Time Stop Time Status Last Admin Dose Admin Levetiracetam 500 mg/Dextrose 105 ml @ 420 mls/hr Q12HR IV 07/11/21 15:00 07/12/21 07:53 Levofloxacin/ Dextrose 150 ml @ 100 mls/hr ONCE ONCE IV 07/11/21 23:30 07/12/21 00:59 DC 07/12/21 00:11 Morphine Sulfate 30 ml @ 0 mls/hr CONT PRN PRN IV PER PROTOCOL 07/12/21 10:45 07/12/21 11:32 Justifications for Admission Other Justification RENE NICK III DO Jul 12, 2021 12:48
--- NOTE | 2021-07-12 16:22 | DS ---
DATE OF DISCHARGE: 07/12/2021 ADMISSION DIAGNOSIS: Cardiac arrest secondary to hyperkalemia and end-stage renal disease. CAUSE OF : 1. End-stage renal disease. 2. Hyperkalemia. 3. Cardiac arrest. 4. Diabetes. 5. Hypertension. HOSPITAL COURSE: The patient is a pleasant 70-year-old male who was just discharged a few days ago. He refused to start dialysis. His creatinine clearance was less than 15. He had hyperkalemia. He insisted on going home. He wanted to think about dialysis, which he had been doing for quite some time. Last night, he had cardiac arrest. When I actually spoke with him a week ago, he requested to be DNR, but the ambulance crew did not have an out of house DNR form nearby when they arrived, so they went ahead and intubated the patient and resuscitated him. Today, I spoke with the family. They decided to extubate him and do comfort care. The patient at [address]: Bhavani TID: [id number]
--- NOTE | 2021-07-12 17:44 | NUR ---
MTN notified of plan to palliatively extubate, patient still not a candidate for donation and call back with cardiac time of . Patient palliatively extubated on 07/12 at 1515 with family at bedside. Time of was 1517. Family took patient's belongings with them. [facility] contacted at [phone] and it was determined patient is a candidate for tissue and eye donation. Patient taken to [facility], awaiting clearance from [facility] to release body to [facility]. Nursing Wood Carving Machine Operator notified.
== END 2021-07-12 15:17 | DRG 871 ==
LOC: ER 01:41 → 1 WEST ICU 04:56
PROVIDERS: ADMIT Internal Medicine; ATTEND Internal Medicine
PROC: 0BH17EZ Insertion of Endotracheal Airway into Trachea, Via Natural or Artificial Opening (ICD-10-PCS; principal; 2021-07-11)
PROC: 5A1945Z Respiratory Ventilation, 24-96 Consecutive Hours (ICD-10-PCS; 2021-07-11)
PROC: 02HV33Z Insertion of Infusion Device into Superior Vena Cava, Percutaneous Approach (ICD-10-PCS; 2021-07-11)
PROC: B548ZZA Ultrasonography of Superior Vena Cava, Guidance (ICD-10-PCS; 2021-07-11)
DX: A41.9 Sepsis, unspecified organism (principal); I50.33 Acute on chronic diastolic (congestive) heart failure; J96.01 Acute respiratory failure with hypoxia; N18.6 End stage renal disease; J96.02 Acute respiratory failure with hypercapnia; J18.9 Pneumonia, unspecified organism; G93.1 Anoxic brain damage, not elsewhere classified; I13.2 Hypertensive heart and chronic kidney disease with heart failure and with stage 5 chronic kidney disease, or end stage renal disease; I42.9 Cardiomyopathy, unspecified; N17.9 Acute kidney failure, unspecified; R57.9 Shock, unspecified; R07.89 Other chest pain; D64.9 Anemia, unspecified; E11.22 Type 2 diabetes mellitus with diabetic chronic kidney disease; E78.5 Hyperlipidemia, unspecified; E87.5 Hyperkalemia; G25.3 Myoclonus; I46.8 Cardiac arrest due to other underlying condition; K76.0 Fatty (change of) liver, not elsewhere classified; R56.9 Unspecified convulsions; Z51.5 Encounter for palliative care; Z66 Do not resuscitate; Z82.49 Family history of ischemic heart disease and other diseases of the circulatory system; Z87.19 Personal history of other diseases of the digestive system; Z87.891 Personal history of nicotine dependence; K57.90 Diverticulosis of intestine, part unspecified, without perforation or abscess without bleeding; M19.90 Unspecified osteoarthritis, unspecified site; Z88.0 Allergy status to penicillin; Z88.8 Allergy status to other drugs, medicaments and biological substances
CPT/HCPCS: 31500; 36415; 36569; 36600; 51702; 71045; 71250; 74176; 80048; 80053; 80069; 81001; 82805; 82962; 83605; 83735; 83880; 84100; 84484; 85007; 85025; 85610; 85730; 87040; 87086; 93308; 93325; 94002; 94003; 94644; 96365; 96366; 96368; 96375; J0171; J0461; J0610; J0692; J1815; J1940; J1953; J1956; J2060; J2250; J2270; J2704; J3370; J3490; J7040; J7060; 99285-25; G0378; J7613